=== PATIENT | male | born 1955 | race Caucasian/White ===

== ENCOUNTER 2019-06-15 09:24 | Emergency (ER) | payer MEDICARE, SELFPAY ==
[2019-06-15 09:34] VITALS: BP 181/82; PULSE 83; RESP 18; TEMP 36.8; O2SAT 93; BMI 34.2
--- NOTE | 2019-06-15 09:43 | ED_ITS ---
HPI - Skin/Abscess/Foreign Bdy General: Chief complaint: Skin/Abscess/Foreign Body Stated complaint: LEFT LEG INFECTION Time Seen by Provider: 06/15/19 09:28 History of Present Illness: HPI narrative: Patient has an abscess to the posterior aspect of his left proximal thigh/distal buttocks complaint: abscess/boil Onset (ago): day(s) Tetanus up to date: yes Location: LLE Severity: moderate Severity scale (1-10): 5 Quality: sharp and constant Pain Consistency: constant Relieving factors: none Exacerbating factors: movement Review of Systems General: Reports: 10 or more systems reviewed and unremarkable except in HPI and below PFSH ED PFSH: Social History Smoking and tobacco status: current every day smoker Physical Exam Skin: LESIONS: lesion noted (4 cm diameter developing abscess with fluctuant center) Procedures Abscess I/D Site: lower extremity Side (if applicable): left Local Anesthetic: lidocaine 1% and with epi Technique: incised with #11 blade Amount of fluid expressed (mL): 15 Irrigation: No Packing used?: none Course Vital Signs: Vital signs: Vital Signs Temperature 98.3 F 06/15/19 09:34 Pulse Rate 83 06/15/19 09:34 Respiratory Rate 18 06/15/19 09:34 Blood Pressure 181/82 06/15/19 09:34 Pulse Oximetry 93 06/15/19 09:34 Discharge Plan Discharge Patient Disposition: Home, Self-Care Clinical Impression: Abscess of skin or subcutaneous tissue Qualifiers: Site of cutaneous abscess: buttock Qualified Code(s): L02.31 - Cutaneous abscess of buttock Condition: Stable Prescriptions: New clindamycin HCl 300 mg capsule 300 mg PO Q6H 10 Days Qty: 40 RF: 0 hydrocodone-acetaminophen 5-325 mg tablet 1 tab PO Q4H PRN (Reason: pain) Qty: 10 RF: 0 Discharge Orders: Discharge Order (Routine); Ordered 06/15/19 Ordered By: Tera Lundberg Referrals: Sierra Connelly DO [Primary Care Provider] - Patient Instructions: Abscess Incision and Drainage (ED), Abscess (ED) Coding Level of Care Code ED Manufacturing Mechanic for Chg Fwd Exam Problem Focused
[2019-06-15] MEDS: ceFAZolin 1,000 mg SDV 1000 MG IM (09:54)
[2019-06-15] MEDS: water for injection-sterile 10 ML 2 ML (09:57)
[2019-06-15 10:15] VITALS: BP 180/71; PULSE 76; RESP 18; TEMP 36.9; O2SAT 95
== END 2019-06-15 10:10 | disposition home or self-care (01) ==
PROVIDERS: Emergency Provider Family Medicine; Family Provider Family Medicine; PCP Family Medicine
DX: L02.31 Cutaneous abscess of buttock (principal); F17.210 Nicotine dependence, cigarettes, uncomplicated
CPT/HCPCS: 10060; 12345; 87070; 87205; 96372; 99281; 99283; J0690; J2001

== ENCOUNTER 2019-12-02 12:00 | Outpatient (CLI) | payer MEDICARE, SELFPAY | END 2019-12-02 12:01 | disposition home or self-care (01) | LOC: SLEEP 04-01 08:42 | PROVIDERS: Family Provider Family Medicine; PCP Family Medicine; Visit Provider Internal Medicine Pulmonary Disease | DX: G47.33 Obstructive sleep apnea (adult) (pediatric) (principal); J44.9 Chronic obstructive pulmonary disease, unspecified | CPT/HCPCS: 94762; G0399 ==

== ENCOUNTER 2019-12-08 16:35 | Outpatient (CLI) | payer MEDICARE, SELFPAY ==
[2019-12-08 17:09] LABS: Basophils # 0.1 10^3/uL (0.0-0.1); Basophils % 0.7 %; Eosinophils # 0.1 10^3/uL (0.0-0.8); Hematocrit 49.3 % (42.0-52.0); Hemoglobin 16.5 g/dL (11.7-16.6); Lymphocytes # 1.6 10^3/uL (0.8-4.8); Lymphocytes % 22.4 %; Mean Corpuscular HGB Conc 33.5 g/dL (30.0-36.0); Mean Corpuscular Hemoglobin 32.7 pg (28.0-34.0); Mean Corpuscular Volume 97.6 fL (80-94); Mean Platelet Volume 10.5 fL (7.4-10.4); Monocytes # 0.4 10^3/uL (0.2-0.9); Monocytes % 5.8 %; Neutrophils # 4.75 10^3/uL (1.8-7.7); Neutrophils % 68.8 %; Nucleated Red Blood Cells % 0 %; Platelet Count 238 10^3/cmm (130-400); Red Blood Count 5.05 10^6/uL (4.1-5.3); Red Cell Distribution Width 14.5 % (12.1-15.1); White Blood Count 6.9 10^3/uL (4.0-10.0)
[2019-12-08 17:24] LABS: Alanine Aminotransferase 41 U/L (0-41); Albumin Level 3.7 g/dL (3.5-5.2); Alkaline Phosphatase 82 IU/L (40-130); Anion Gap 15.9 (5-19); Aspartate Amino Transferase 38 U/L (0-40); Blood Urea Nitrogen 13 mg/dL (8-23); Calcium 9.5 mg/dL (8.5-10.5); Carbon Dioxide 25 mmol/L (22-29); Chloride 100 mmol/L (98-107); Globulin 3.5 g/dL (1.3-4.6); Glomerular Filtration Rate 75.2 mL/min (90-130); Glucose 114 mg/dL (65-115); Osmolality Calculated 285 mOsm/kg (285-295); Potassium 3.9 mmol/L (3.5-5.1); Sodium 137 mmol/L (136-145); Total Bilirubin 0.3 mg/dL (0.15-1.2); Total Protein 7.2 g/dL (6.6-8.7)
[2019-12-10 18:32] LABS: Immunoglobulin E 126 kU/L (<OR=114)
[2019-12-11 15:57] LABS: Alternaria Alternata (M6) Ige <0.10 kU/L; Alternaria Class 0; Bermuda Class 0; Bermuda Grass (G2) Ige <0.10 kU/L; Cat Dander (E1) Ige <0.10 kU/L; Cat Dander Class 0; Common Ragweed (Short) (W1) Ig <0.10 kU/L; D. Farinae Class 0; Dermatophagoides Class 0; Dermatophagoides Farinae (D2) <0.10 kU/L; Dermatophagoides Pteronyssinus <0.10 kU/L; Dog Dander (E5) Ige <0.10 kU/L; Dog Dander Class 0; Elm (T8) Ige <0.10 kU/L; Elm Class 0; English Plantain (W9) Ige <0.10 kU/L; English Plantain Class 0; House Dust (Greer) (H1) Ige <0.10 kU/L; House Dust (Hollister- Stier) <0.10 kU/L; House Dust Class 0; Johnson Grass (G10) Ige 0.71 kU/L; Johnson Grass Cl 2; June Grass Class 0; June Grass(Kentucky Blue) (G8) <0.10 kU/L; Lamb'S Quarters (Goose Foot) <0.10 kU/L; Lamb'S Quarters Class 0; Maple (Box Elder) (T1) Ige <0.10 kU/L; Maple Class 0; Meadow Fescue (G4) Ige <0.10 kU/L; Meadow Fescue Class 0; Mucor Racemosus Class 0; Oak (T7) Ige <0.10 kU/L; Oak Class 0; Orchard Grass (Cocksfoot) (G3) <0.10 kU/L; Penicillium Class 0; Penicillium Notatum (M1) Ige <0.10 kU/L; Perennial Rye Grass (G5) Ige <0.10 kU/L; Perennial Rye Grass Class 0; Ragweeed Class 0; Rough Marsh Elder (W16) Ige <0.10 kU/L; Rough Marsh Elder Class 0; Sweet Vernal Class 0; Sweet Vernal Grass (G1) Ige <0.10 kU/L; Timothy Grass (G6) Ige <0.10 kU/L; Timothy Grass Class 0
[2019-12-11 17:03] LABS: Immunoglobulin E 156 kU/L (<OR=114)
[2019-12-15 17:08] LABS: Aspergillus Fumigatus, Igg Ab, 27.6 mg/L (<=102)
== END 2019-12-08 16:36 | disposition home or self-care (01) ==
LOC: LAB 16:43
PROVIDERS: PCP Family Medicine; Visit Provider Internal Medicine Pulmonary Disease
DX: R06.02 Shortness of breath (principal); F17.200 Nicotine dependence, unspecified, uncomplicated; J44.9 Chronic obstructive pulmonary disease, unspecified; Z12.2 Encounter for screening for malignant neoplasm of respiratory organs
CPT/HCPCS: 36415; 80053; 82785; 85025; 86003

== ENCOUNTER → 2019-12-09 16:58 | Outpatient (BNVA) | payer MEDICARE, SELFPAY | PROVIDERS: PCP Family Medicine; Visit Provider Internal Medicine Pulmonary Disease | DX: Z11.59 Encounter for screening for other viral diseases (principal) | CPT/HCPCS: 87635 ==

== ENCOUNTER 2019-12-11 12:51 | Outpatient (CLI) | payer MEDICARE, SELFPAY ==
--- NOTE | 2019-12-11 14:08 | PFTS_ITS ---
Date of Study:12/11/19 Date of Dictation: MECHANICS: Forced vital capacity (FVC) is reduced. Forced expiratory volume in one second (FEV1) is reduced. FEV1/FVC is normal. FLOW VOLUME LOOP: Narrow with mild scooping. LUNG VOLUMES: Total lung capacity (TLC) is increased. Residual volume (RV) is increased. DIFFUSING CAPACITY FOR CARBON MONOXIDE: Mildly reduced. INTERPRETATION: The pulmonary function tests are consistent with nonspecific ventilatory limitation. The postbronchodilator spirometry is consistent with mild restriction, however, this is not supported by the lung volumes. This is likely secondary to a combination of obstructive and restrictive defect. There is no significant postbronchodilator response. Lung volumes are consistent with hyperinflation and air trapping. Gas exchange (DLCO) is mildly reduced. MTDD
== END 2019-12-11 12:52 | disposition home or self-care (01) ==
LOC: RT 12:53
PROVIDERS: PCP Family Medicine; Visit Provider Internal Medicine Pulmonary Disease
DX: J44.9 Chronic obstructive pulmonary disease, unspecified (principal)
CPT/HCPCS: 94060; 94726; 94729; J7611

== ENCOUNTER 2020-05-28 15:12 | Outpatient (CLI) | payer MEDICARE, SELFPAY ==
--- NOTE | 2020-05-28 15:30 | CT_ITS ---
WS: [id number] CT scan of the chest without IV contrast, additional two-dimensional coronal and sagittal reconstruct ion was performed. 05/28/2020 Clinical Data: follow up to lung nodule Comparison: CT chest, 01/16/2020. DLP: 1056.[address] scans at [facility] use at least one of these dose optimization techniques: automat ed exposure control; mA and/or kV adjustment per patient size (includes targeted exams where dose is matched to clinical indication); or iterative reconstruction. Findings: No nodules, masses or effusions are seen. The pleura in the left lower lobe shows no increased opacit y or thickening. The heart size is normal with no pericardial effusion. There is calcification in the coronary arteries. The pulmonary arterial system and thoracic aorta demonstrate no abnormalities or dilatations. There is no axillary or significant mediastinal adenopathy. Degenerative change of the t horacic vertebral bodies is moderate. The upper abdomen shows no abnormalities. CT/CT chest wo con [id number] Impression: 1. No evidence of any significant nodules. 2. No parenchymal disease in left lower lobe. 3. Negative for active cardiopulmonary disease.
== END 2020-05-28 15:13 | disposition home or self-care (01) ==
LOC: RADWPI 15:18
PROVIDERS: PCP Family Medicine; Visit Provider Internal Medicine Pulmonary Disease
DX: R91.1 Solitary pulmonary nodule (principal)
CPT/HCPCS: 71250

== ENCOUNTER → 2021-01-08 16:29 | Outpatient (BNVA) | payer OTHER, SELFPAY | PROVIDERS: PCP Family Medicine; Visit Provider Registered Nurse Neonatal Intensive Care | DX: Z20.822 Contact with and (suspected) exposure to COVID-19 (principal) | CPT/HCPCS: 87635 ==

== ENCOUNTER → 2024-02-13 14:51 | Outpatient (BNVA) | payer MEDICARE, SELFPAY | PROVIDERS: PCP Family Medicine; Referring Provider Nurse Practitioner Family; Visit Provider Internal Medicine | DX: R07.9 Chest pain, unspecified (principal); I77.9 Disorder of arteries and arterioles, unspecified; I73.9 Peripheral vascular disease, unspecified; F17.200 Nicotine dependence, unspecified, uncomplicated; J44.9 Chronic obstructive pulmonary disease, unspecified; I10 Essential (primary) hypertension | CPT/HCPCS: 93005; 99204 ==

== ENCOUNTER 2024-11-14 20:27 | Emergency (ER) | payer MEDICARE, SELFPAY ==
--- NOTE | 2024-11-14 20:31 | ECG_ITS ---
[facility] Test Date: 2024-11-14 Pat Name: James Alvarado Department: Room: Gender: Male Interior Design Assistant: : 1955 Requested By: Gwyn Patton Order Number: [id number] Tian MD: Kit Pickard M.D. Measurements Intervals [place] Rate: 68 P: 45 OK: 187 QRS: -7 QRSD: 89 T: 33 QT: 412 QTc: 441 Interpretive Statements SINUS RHYTHM Compared to ECG 02/13/2024 15:01:32 No significant changes Electronically Signed On 11-15-2024 13:03:59 CDT by Kit Pickard M.D. [id number]
--- OUTSIDE RECORDS SUMMARY | 2024-11-14 20:32 | XMS_ITS | Encounter Summary ---
Author Organization [facility] Address [address] [place] [address] Care Team Providers Care Hospital Pharmacist Name Role Phone Sierra Connelly DO Primary Care Provider Encounter Details Date Type Department Care Team (Late st Contact Info) Description 06/22/2011 Ancillary Orders [facility] [place] [address] [place] [address] Sierra Connelly DO [address] [place] [address] Low back pain radiating to left leg Social History Tobacco Use Types Packs/Day Years Used Date Smoking Tobacco: Every Day Cigarettes 0.3 44 Comments:quit 11 weeks ago Alcohol Use Standard Drinks/Week Comments No 0 (1 standard drink = 0.6 oz pur e alcohol) 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 Sex and Gender Information Value Date Recorded Sex Assigned at Not on file Legal Sex Male 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 No significant change is seen since the comparison study of 18 April 2010. There is osteophyte formation as before. IMPRESSION osteoarthritis with no acute changes seen Procedure Note Abhishek Mcdowell MD - 06/23/2011 Description: AP, lateral, and swimmer projection of the thoracic spine show no acute compression fracture or loss of alignment. No significant change is seen since the comparison study of 18 April 2010. There is osteophyte formation as before. IMPRESSION osteoarthritis with no acute changes seen us Sierra Connelly DO DIAGNOSTIC IMAGING ORDERABL ES Final Result documented in this encounter Visit Diagnoses Diagnosis Low back pain radiating to left leg Lumbago Low back pain radiating to left leg Lumbago documented in this encounter Additional Health Concerns Infection Onset Date Last Indicated Resolved Time R/O COVID-19 09/09/2019 09/09/2019 09/11/2019 3:34 AM CDT documented as of this encounter Care Teams Hospital Pharmacist Relationship Specialty Start Date End Date Sierra Connelly DO [address] [place] [address] PCP - General Family Practice 10/18/09 documented as of this encounter
--- OUTSIDE RECORDS SUMMARY | 2024-11-14 20:32 | XMS_ITS | Encounter Summary ---
Author Organization [facility] Address [address] [place] [address] Care Team Providers Care Wholesale Account Executive Name Role Phone Sierra Connelly DO Primary Care Provider [phone] Encounter Details Date Type Department Care Team (Late st Contact Info) Description 10/05/2024 Results Follow-Up [facility] Family Medicine [place] [address] [place] [address] Sierra Connelly DO [address] [place] [address] VITAMIN B12 LEVEL Social History Tobacco Use Types Packs/Day Years Used Date Smoking Tobacco: Former Cigarettes 1 60.3 0 1963 - 2024 Passive Smoke Exposure: Current Smokeless Tobacco: Never Alcohol Use Standard Drinks/Week Comments No 0 (1 standard drink = 0.6 oz pur e alcohol) Financial Resource Strain Answer Date R ecorded How hard is it for you to pa y for the very basics like food, housing, medical care, and heating? Patient declined 10/02/2022 Food Insecurity Answer Date Recorded In the past 12 months, have you worried that your food would run out before you had money to buy more? Patient declined 2022 In the past 12 months, did y ou run out of food and didn't have money to buy more? Patient declined 10/02/2022 Transportation Needs Answer Date Record ed In the past 12 months, has l ack of transportation kept you from medical appointments or from getting medications? No 10/02/2022 Lack of Transportation (Non-Medical) Not on file 10/02/2022 Feeling Safe Answer Date Recorded Are you in a relationship wi th someone who hurts you emotionally and/or physically? No 04/24/2024 Sex and Gender Information Value Date Recorded Sex Assigned at Not on file Legal Sex Male 10:16 AM EXTENSION SERVICE ADVISOR Gender Identity Not on file Sexual Orientation Not on file documented as of this encounter Plan of Treatment Upcoming Encounters Date Type Department Care Team (Late st Contact Info) Description 11/27/2024 3:20 PM CDT Office Visit [facility] [address] [facility] [facility] [address] [place] [address] Dominga Saenz, MERCERIZER [address] [facility] [place] [address] 12/15/2024 3:00 PM CDT Appointment [facility] CT Scan [place] [address] [place] [address] Heather Guerrero PA-C [address] [address] 12/16/2024 1:20 PM CDT Office Visit [facility] [address] [place] [address] Arian Weston, SECURITY SYSTEMS TECHNICIAN [address] [place] [address] 12/22/2024 3:00 PM CDT Appointment [facility] Radiation Oncology [facility] [address] [facility] [address] [place] [address] Heather Guerrero PA-C [address] [address] 01/13/2025 2:30 PM EXTENSION SERVICE ADVISOR Office Visit [facility] Pulmonology [address] [place] [address] Zahraa Kelly MD [address] [place] [address] 03/31/2025 1:30 PM EXTENSION SERVICE ADVISOR Ancillary Procedure [facility] Lab [facility]- [place] [address] [place] [address] Lee Mejia MD [address] [place] [address] 03/31/2025 2:30 PM EXTENSION SERVICE ADVISOR Office Visit [facility] Vascular Surgery [place] [address] [facility] [address] [place] [address] Lee Mejia MD [address] [place] [address] Kaylee Arias FNP NO ADDRESS ON FILE 04/07/2025 11:00 AM EXTENSION SERVICE ADVISOR Office Visit [facility] [address] [place] [address] Sierra Connelly, DO [address] [place] [address] 07/07/2025 11:00 AM CDT Office Visit [facility] [address] [place] [address] Sierra Connelly, DO [address] [place] [address] documented as of this encounter Visit Diagnoses Not on filedocumented in this encounter Care Teams Wholesale Account Executive Relationship Specialty Start Date End Date Sierra Connelly DO [address] [place] [address] PCP - General Family Practice 10/18/09 documented as of this encounter
--- OUTSIDE RECORDS SUMMARY | 2024-11-14 20:32 | XMS_ITS | Encounter Summary ---
Author Organization [facility] Address [address] [place] [address] Care Team Providers Care Media Analytics Manager Name Role Phone Rebecca Connellyoraian Rm DO Primary Care Provider [phone] Reason for Referral * Outpatient Services (Routine) - Closed Specialty Diagnoses / Procedures Referred By Mayra lopez Referred To Contact Diagnoses PAD (peripheral artery disease) Procedures US DUPLEX ARTERIAL LEG RIGHT Celestina Stringer CNS NO ADDRESS ON FILE Referral ID Status Reason Start Date Expiration Date Visits Re quested Visits Authorized [id number] Closed 10/05/2010 10/05/2011 1 1 Encounter Details Date Type Department Care Team (Late st Contact Info) Description 10/05/2010 Ancillary Orders [facility] Cardiac Thoracic Vascular Surg [place] [address] [place] [address] Celestina Stringer CNS NO ADDRESS ON FILE PAD (peripheral artery disease) Social History Tobacco Use Types Packs/Day Years Used Date Smoking Tobacco: Former Cigarettes 1 44 Comments:quit 11 weeks ago Alcohol Use Standard Drinks/Week Comments No 0 (1 standard drink = 0.6 oz pur e alcohol) 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 Sex and Gender Information Value Date Recorded Sex Assigned at Not on file 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 Gender Identity Not on file Sexual Orientation Not on file documented as of this encounter Plan of Treatment Not on file documented as of this encounter Results * US DUPLEX ARTERIAL LEG RIGHT (10/05/2010 2:27 PM CDT) Anatomical Region Laterality Modality Lower Extremity Ultrasound 10/05/2010 1:52 PM CDT Narrative 10/05/2010 3:24 PM CDT [facility] [address] [place] [address] [place] [address] Noninvasive Vascular Lab Arterial Exam Limited Lower Extremity Duplex Patient: James Alvarado Study ID: US DOPPLER ARTER Gender: M : 1955 Age: 54 Room: Height: Weight: BSA: Pt status: Outpatient Study Date: 10/05/2010 Study Time: 01:52 PM BSA: Ordering: Celestina Stringer Interpreting:Vijay Sewell MD FACS, RPVI Study Abroad Advisor: Isaac Lim RVT Indications: 443.9 Peripheral vascular disease unspecified. Summary Impression: 1. Study demonstrates severe, femoro-popliteal arterial insufficiency at rest involving the right lower extremity 2. Findings represent a severe progression of disease from the prior examination done 04/08/2010. Clinical correlation is reccomended. Study data: Right lower extremity arterial duplex. Duplex scan. Location: Vascular laboratory. Patient status: Outpatient. Study status: Routine. Procedure: A vascular evaluation was performed. Image quality was good. Exam quality was good. Findings: In the right lower extremity inflow is biphasic. The superficial femoral artery is occluded. There is an occluded femoral to popliteal bypass. There is biphasic flow into the profunda femoral artery. Recanalization is seen in the popliteal, which is diffusely diseased. Velocity criteria suggest at least a 50-75% narrowing in the popliteal artery. Waveforms in the popliteal are monophasic, they are monophasic and blunted in the tibial vessels. Velocities in the tibial vessels are severely reduced. Resting MELLISA is in the severe disease range. PPGs are present and severely diminished for all digits in the right lower extremity. Ankle brachial indices Baseline Rt PT: 57mm Hg Rt DP: 52mm Hg Rt brachial: 114mm Hg Rt PT: 0.5 Rt DP: 0.46 Lt PT: 92mm Hg Lt DP: 84mm Hg Lt Brachial: 113mm Hg Lt PT: 0.81 Lt DP: 0.74 [facility] is accredited with the Intersocietal Commission for the Accreditation of Vascular Laboratories (ICAVL) Prepared and Electronically Authenticated Silverio Gomez MD, MBA, FACS Confirmed 10/05/2010 15:24 Procedure Note Silverio Briseno MD - 10/05/2010 [facility] [address] [place] [address] [place] [address] Noninvasive Vascular Lab Arterial Exam Limited Lower Extremity Duplex Patient: James Alvarado Study ID: US DOPPLER ARTER Gender: M : 1955 Age: 54 Room: Height: Weight: BSA: Pt status: Outpatient Study Date: 10/05/2010 Study Time: 01:52 PM BSA: Ordering: Celestina Stringer Interpreting:Vijay Sewell MD FACS, RPVI Study Abroad Advisor: Isaac Lim RVT Indications: 443.9 Peripheral vascular disease unspecified. Summary Impression: 1. Study demonstrates severe, femoro-popliteal arterial insufficiency at rest involving the right lower extremity 2. Findings represent a severe progression of disease from the prior examination done 04/08/2010. Clinical correlation is reccomended. Study data: Right lower extremity arterial duplex. Duplex scan.Location: Vascular laboratory. Patient status: Outpatient. Study status: Routine. Procedure: A vascular evaluation was performed. Image quality was good. Exam quality was good. Findings: In the right lower extremity inflow is biphasic. The superficial femoral artery is occluded. There is an occluded femoral to popliteal bypass.There is biphasic flow into the profunda femoral artery. Recanalization isseen in the popliteal, which is diffusely diseased. Velocity criteria suggestat least a 50-75% narrowing in the popliteal artery. Waveforms in the popliteal are monophasic, they are monophasic and blunted in the tibial vessels. Velocities in the tibial vessels are severely reduced. RestingABI is in the severe disease range. PPGs are present and severely diminished for all digits in the right lower extremity. Ankle brachial indices Baseline Rt PT: 57mm Hg Rt DP: 52mm Hg Rtbrachial: 114mm Hg Rt PT: 0.5 Rt DP: 0.46 Lt PT: 92mm Hg Lt DP: 84mm Hg LtBrachial: 113mm Hg Lt PT: 0.81 Lt DP: 0.74 [facility] is accredited with theIntersocietal Commission for the Accreditation of Vascular Laboratories (ICAVL) Prepared and Electronically Authenticated Silverio Gomez MD, MBA FACS Confirmed 10/05/2010 15:24 us Celestina Brock [place] [facility] US ORDERABLES Final Result documented in this encounter Visit Diagnoses Diagnosis PAD (peripheral artery disease) Unspecified disorders of arteries and arterioles documented in this encounter Additional Health Concerns Infection Onset Date Last Indicated Resolved Time R/O COVID-19 09/09/2019 09/09/2019 09/11/2019 3:34 AM CDT documented as of this encounter Care Teams Media Analytics Manager Relationship Specialty Start Date End Date Sierra Connelly DO [address] [place] [address] PCP - General Family Practice 10/18/09 documented as of this encounter
--- OUTSIDE RECORDS SUMMARY | 2024-11-14 20:32 | XMS_ITS | Encounter Summary ---
Author Organization [facility] Address 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 Topic: [id number] Call >> Sep 11, 2024 10:58 AM Magalys Gutiérrez wrote: Caller is requesting to speak with Clinical Care Team. Caller Name: Flyr Callback Number: [phone] Clinician Type: Other healthcare professional not listed above Call Notes: Patient shows to have a diagnosis of cardiovascular disease, asking provider to review the patient's chart and place him on a statin medication if appropriate. Ref #[id number] Is this addressing an immediate patient care need? No documented in this encounter Plan of Treatment Upcoming Encounters Date Type Department Care Team (Late st Contact Info) Description 11/27/2024 3:20 PM CDT Office Visit [facility] [address] [facility] [address] [place] [address] Dominga Saenz, CUSTOMER SUPPORT AGENT [address] [facility] [address] [place] [address] 12/15/2024 3:00 PM CDT Appointment [facility] CT Scan [place] [address] [place] [address] Heather Guerrero PA-C [address] [facility] [address] [place] [address] 12/16/2024 1:20 PM CDT Office Visit [facility] Family Medicine [place] [address] [place] [address] Arian Weston, ARIS [address] [place] [address] 12/22/2024 3:00 PM CDT Appointment [facility] Radiation Oncology [facility] Center [address] [facility] [address] [place] [address] Heather Guerrero PA-C [address] [facility] [address] [place] [address] 01/13/2025 2:30 PM WEEKEND CAREGIVER Office Visit [facility] Pulmonology [address] [place] [address] Zahraa Kelly MD [address] [place] [address] 03/31/2025 1:30 PM WEEKEND CAREGIVER Ancillary Procedure [facility] Vascular Lab and Vein Center- [address] [address] Lee Mejia MD [address] [address] 03/31/2025 2:30 PM WEEKEND CAREGIVER Office Visit [facility] Vascular Surgery [address] [address] Lee Mejia MD [address] [place] [address] Kaylee Arias FNP NO ADDRESS ON FILE 04/07/2025 11:00 AM WEEKEND CAREGIVER Office Visit [facility] [address] [place] [address] Sierra Connelly, DO [address] [place] [address] 07/07/2025 11:00 AM CDT Office Visit [facility] [address] [facility] [place] [address] Sierra Connelly, DO [address] [place] [address] documented as of this encounter Visit Diagnoses Not on filedocumented in this encounter Care Teams Aircraft Worker Relationship Specialty Start Date End Date Sierra Connelly DO [address] [place] [address] PCP - General Family Practice 10/18/09 documented as of this encounter
--- OUTSIDE RECORDS SUMMARY | 2024-11-14 20:32 | XMS_ITS | Encounter Summary ---
Author Organization [facility] Address [address] [place] [address] Care Team Providers Care Field Staff Manager Name Role Phone Sierra Connelly Jag LORENZO Primary Care Provider [phone] Encounter Details Date Type Department Care Team (Latest Contact Info) Description 03/14/2024 Results Follow-Up 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 CT Scan [place] [address] [place] [address] Heather Guerrero PA-C [address] [facility] [address] [place] [address] 12/16/2024 1:20 PM CDT Office Visit [facility] Family Medicine [place] [address] [place] [address] Arian Weston, DYE HOUSE HELPER [address] [place] [address] 12/22/2024 3:00 PM CDT Appointment [facility] Radiation [facility] [address] [facility] [address] [place] [address] Heather Guerrero PA-C [address] [facility] [address] [place] [address] 01/13/2025 2:30 PM STRIPPER CUTTER MACHINE Office Visit [facility] Pulmonology [address] [place] [address] Zahraa Kelly MD [address] [place] [address] 03/31/2025 1:30 PM STRIPPER CUTTER MACHINE Ancillary Procedure [facility] [place] [address] [facility] [address] [place] [address] Lee Mejia MD [address] [facility] [address] [place] [address] 03/31/2025 2:30 PM STRIPPER CUTTER MACHINE Office Visit [facility] Vascular Surgery [place] [address] [facility] [address] [place] [address] Lee Mejia MD [address] [facility] [address] [place] [address] Kaylee Arias FNP NO ADDRESS ON FILE 04/07/2025 11:00 AM STRIPPER CUTTER MACHINE Office Visit [facility] [address] [place] [address] Sierra Connelly, DO [address] [place] [address] 07/07/2025 11:00 AM CDT Office Visit [facility] [address] [place] [address] Sierra Connelly, DO [address] [place] [address] documented as of this encounter Visit Diagnoses Not on filedocumented in this encounter Care Teams Field Staff Manager Relationship Specialty Start Date End Date Sierra Connelly DO [address] [place] [address] PCP - General Family Practice 10/18/09 documented as of this encounter
--- OUTSIDE RECORDS SUMMARY | 2024-11-14 20:32 | XMS_ITS | Encounter Summary ---
Author Organization [facility] Address [address] [place] [address] Care Team Providers Care Flatlock Sewing Machine Operator Name Role Phone Sierra Connelly DO Primary Care Provider [phone]- [phone] Reason for Referral * MRI (Routine) - Open Specialty Diagnoses / Procedures Referred By Contac t Referred To Contact Radiology Diagnoses Infrarenal abdominal aortic aneurysm (AAA) without rupture Pancreatic lesion Procedures MRI ABDOMEN PELVIS W WO CONT CHG MRI ABDOMEN W/O CONTRAST FLWD BY W/CONTRAST CHG MRI PELVIS W/O & W/CONTRAST MATERIAL Arian Weston FNP [address] [place] [address] Phone: tel: fax: [facility] [employer] [facility] [place] [address] [place] [address] Phone: tel: fax: Referral ID Status Reason Start Date Expiration Date Visits Re quested Visits Authorized [id number] Open 10/31/2024 12/01/2025 1 1 Encounter Details Date Type Department Care Team (Latest Contact Info) Description 10/20/2024 Results Follow-Up [facility] Medicine [place] [address] [place] [address] Arian Weston FNP [address] [place] [address] CBC WITH DIFFERENTIAL, COMPREHENSIVE METABOLIC PANEL, LIPASE, Additional followed-up results: 4 Social History Tobacco Use Types Packs/Day Years [...] on file 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 Gender Identity Not on file Sexual Orientation Not on file documented as of this encounter Plan of Treatment Upcoming Encounters Date Type Department Care Team (Late st Contact Info) Description 11/27/2024 3:20 PM CDT Office Visit [facility] Cardiology Heart [facility] [address] [facility] [address] [place] [address] Dominga Saenz, TYLER [address] [place] [address] 12/15/2024 3:00 PM CDT Appointment [facility] CT Scan [place] [address] [place] [address] Heather Guerrero PA-C [address] [facility] [address] [place] [address] 12/16/2024 1:20 PM CDT Office Visit [facility] [address] [place] [address] WestonArian Ravindra, [facility] [address] [facility] [address] 12/22/2024 3:00 PM CDT Appointment [facility] Radiation Oncology [facility] [address] [facility] [address] [place] [address] Heather Guerrero PA-C [address] [facility] [address] [place] [address] 01/13/2025 2:30 PM TOOLS AND PARTS ATTENDANT Office Visit [facility] Pulmonology [address] [place] [address] [place] [address] Zahraa Kelly MD [address] [place] [address] 03/31/2025 1:30 PM TOOLS AND PARTS ATTENDANT Ancillary Procedure [facility] V[facility] Lab [facility] [place] [address] [place] [address] Lee Mejia MD [address] [facility] [address] [place] [address] 03/31/2025 2:30 PM TOOLS AND PARTS ATTENDANT Office Visit [facility] Vascular Surgery [place] [address] [facility] [address] [place] [address] Lee Mejia MD [address] [phone] Kaylee Arias FNP NO ADDRESS ON FILE 04/07/2025 11:00 AM TOOLS AND PARTS ATTENDANT Office Visit [facility] [address] [place] [address] Sierra Connelly, DO [address] [place] [address] 07/07/2025 11:00 AM CDT Office Visit [facility] [address] [place] [address] Sierra Connelly, DO [address] [place] [address] Scheduled Orders Name Type Priority Associated Diagnoses Orde r Schedule MRI ABDOMEN PELVIS W WO CONT Imaging Routine Infrarenal abdominal aortic aneurysm (AAA) without rupture Pancreatic lesion Expected: 10/30/2025, Expires: 04/30/2026 documented as of this encounter Visit Diagnoses Diagnosis Infrarenal abdominal aortic aneurysm (AAA) without rupture- Primary Pancreatic lesion Unspecified disease of pancreas documented in this encounter Care Teams Flatlock Sewing Machine Operator Relationship Specialty Start Date End Date Sierra Connelly DO [address] [place] [address] PCP - General Family Practice 10/18/09 documented as of this encounter
--- OUTSIDE RECORDS SUMMARY | 2024-11-14 20:32 | XMS_ITS | Encounter Summary ---
Author Organization [facility] Address [address] [place] [address] Care Team Providers Care Parts Salesman Name Role Phone Sierra Connelly DO Primary Care Provider [phone] Reason for Referral * Radiology Services (Routine) - Closed Specialty Diagnoses / Procedures Referred By Contbeltran t Referred To Contact Diagnoses Cervical radiculitis Procedures XR FLUORO NEEDLE GUIDANCE SPINE Zoya De Santiago DO [address] [place] [address] Phone: tel: fax: Referral ID Status Reason Start Date Expiration Date Visits Re quested Visits Authorized [id number] Closed 01/22/2018 02/22/2019 1 1 ANICAL MAINTENANCE Encounter Details Date Type Department Care Team (Late st Contact Info) Description 01/22/2018 Ancillary Orders [facility] Pain Management Procedures [place] [address] [place] [address] Zoay De Santiago DO [address] [place] [address] [address] Cervical radiculitis Social History Tobacco Use Types Packs/Day Years Used Date Smoking Tobacco: Every Day Cigarettes 0.3 44 Smokeless Tobacco: Never Alcohol Use Standard Drinks/Week Comments No 0 (1 standard drink = 0.6 oz pure alcohol) He is a Alcoholic, clean and sober since 2000 Sex and Gender Information Value Date Recorded Sex Assigned at Not on file Legal Sex Male 6:17 AM MECHANICAL MAINTENANCE Gender Identity Not on file Sexual Orientation Not on file Occupation Industry Job Start Date Job End Date Not on file Not on file Not on file Not on file documented as of this encounter Plan of Treatment Not on file documented as of this encounter Results * XR FLUORO NEEDLE GUIDANCE SPINE (01/22/2018 1:40 PM MECHANICAL MAINTENANCE) Narrative 01/22/2018 1:48 PM MECHANICAL MAINTENANCE Order information only. Exam was auto-finalized. Zoya De Santiago DO DIAGNOSTIC IMAGING ORDERABLE S Final Result documented in this encounter Visit Diagnoses Diagnosis Cervical radiculitis Brachial neuritis or radiculitis nos Cervical radiculitis Brachial neuritis or radiculitis nos documented in this encounter Additional Health Concerns Infection Onset Date Last Indicated Resolved Time R/O COVID-19 09/09/2019 09/09/2019 09/11/2019 3:34 AM CDT Assessment Noted Time PHQ-9 Depression Total Score: 1 06/12/19 15 12:00 PM CDT documented as of this encounter Care Teams Parts Salesman Relationship Specialty Start Date End Date Sierra Connelly DO [address] [place] [address] PCP - General Family Practice 10/18/09 documented as of this encounter
--- OUTSIDE RECORDS SUMMARY | 2024-11-14 20:33 | XMS_ITS | Encounter Summary ---
Author Organization [facility] Address [address] [place] [address] Care Team Providers Care Restaurant Shift Supervisor Name Role Phone Sierra Connelly DO Primary Care Provider Encounter Details Date Type Department Care Team (Latest Contact Info) Description 05/26/2009 Ancillary Orders [facility] Interventional Radiology [place] [address] [place] [address] [place] [address] Vijay Sewell MD [address] [address] PVD (Peripheral Vascular Disease) Social History Tobacco Use Types Packs/Day Years Used Date Smoking Tobacco: Every Day Cigarettes 1 44 Alcohol Use Standard Drinks/Week Comments No 0 (1 standard drink = 0.6 oz pur e alcohol) 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 Sex and Gender Information Value Date Recorded Sex Assigned at Not on file 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 Gender Identity Not on file Sexual Orientation Not on file documented as of this encounter Plan of Treatment Not on file documented as of this encounter Visit Diagnoses Diagnosis PVD (peripheral vascular disease) Peripheral vascular disease, unspecified documented in this encounter Additional Health Concerns Infection Onset Date Last Indicated Resolved Time R/O COVID-19 09/09/2019 09/09/2019 09/11/2019 3:34 AM CDT documented as of this encounter Care Teams Restaurant Shift Supervisor Relationship Specialty Start Date End Date Sierra Connelly DO [address] [place] [address] PCP - General Family Practice 10/18/09 documented as of this encounter
--- OUTSIDE RECORDS SUMMARY | 2024-11-14 20:33 | XMS_ITS | Encounter Summary ---
Author Organization [facility] Address [address] [place] [address] Care Team Providers Care Beam Dyer Recessed Vat Name Role Phone Sierra Connelly DO Primary Care Provider Encounter Details Date Type Department Care Team (Latest Contact Info) Description 01/30/2000 Outpatient Historical [facility] Dawson Anne MD [address] [facility] [address] [place] [phone] Follow-up examination following surgery (Primary Dx) Social History Tobacco Use Types Packs/Day Years Used Date Smoking Tobacco: Never Assessed Sex and Gender Information Value Date Recorded Sex Assigned at Not on file Legal Sex Male 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 ATTENDANT Gender Identity Not on file Sexual Orientation Not on file documented as of this encounter Plan of Treatment Not on file documented as of this encounter Visit Diagnoses Diagnosis Follow-up examination following surgery- Primary documented in this encounter Additional Health Concerns Infection Onset Date Last Indicated Resolved Time R/O COVID-19 09/09/2019 09/09/2019 09/11/2019 3:34 AM CDT documented as of this encounter Care Teams Beam Dyer Recessed Vat Relationship Specialty Start Date End Date Sierra Connelly DO [address] [place] [address] PCP - General Family Practice 10/18/09 documented as of this encounter
--- OUTSIDE RECORDS SUMMARY | 2024-11-14 20:33 | XMS_ITS | Encounter Summary ---
Author Organization [facility] Address [address] [place] [address] Care Team Providers Care Whipped Topping Mixer Name Role Phone Sierra Connelly DO Primary Care Provider Encounter Details Date Type Department Care Team (Latest Contact Info) Description 02/25/1998 Outpatient Historical [facility] Gwyn Mckinnon MD [address] [place] [phone] Acute upper respiratory infections of unspecified site (Primary Dx) Social History Tobacco Use Types Packs/Day Years Used Date Smoking Tobacco: Never Assessed Sex and Gender Information Value Date Recorded Sex Assigned at Not on file Legal Sex Male 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 Gender Identity Not on file Sexual Orientation Not on file documented as of this encounter Plan of Treatment Not on file documented as of this encounter Visit Diagnoses Diagnosis Acute upper respiratory infections of unspecified site- Primary documented in this encounter Additional Health Concerns Infection Onset Date Last Indicated Resolved Time R/O COVID-19 09/09/2019 09/09/2019 09/11/2019 3:34 AM CDT documented as of this encounter Care Teams Whipped Topping Mixer Relationship Specialty Start Date End Date Sierra Connelly DO [address] [place] [phone] PCP - General Family Practice 10/18/09 documented as of this encounter
--- OUTSIDE RECORDS SUMMARY | 2024-11-14 20:33 | XMS_ITS | Encounter Summary ---
Author Organization [facility] Address [address] [place] [address] Care Team Providers Care C Software Developer Name Role Phone Sierra Connelly DO Primary Care Provider [phone]- [phone] Reason for Referral * Radiology Services (Routine) - Closed Specialty Diagnoses / Procedures Referred By Contac t Referred To Contact Radiology Diagnoses Essential hypertension Chest pain, unspecified type SOB (shortness of breath) Procedures ECHO STRESS W CONTRAST PHARMACO ECHO STRESS TEST PHARMACO IA ECHO TTHRC R-T 2D W/WO M-MODE REST&STRS CONT ECG IA INJ PERFLUTREN LIP MICROS,ML IA INJ DOBUTAMINE HCL/250 MG IA ECHO TTHRC R-T 2D W/WO M-MODE REST&STRS CONT ECG IA ECHO CONTRAST AGENT DURING STRESS ECHO IA TTE W OR W/O CONTR, CONT ECG Jose Carlos Couch MD Phone: tel: fax: [facility] [address] [place] [address] Phone: tel: fax: Referral ID Status Reason Start Date Expiration Date V isits Requested Visits Authorized [id number] Closed F MC TO SCHEDULE (SGF) 07/04/2018 11/01/2018 1 1 Encounter Details Date Type Department Care Team (Late st Contact Info) Description 07/24/2018 Ancillary Orders [facility] Cardiology- [place] [address] [place] [address] Jose Carlos Couch MD [address] [facility] [address] [place] [address] Essential hypertension; Chest pain, unspecified type; SOB (shortness of breath) Social History Tobacco Use Types Packs/Day Years Used Date Smoking Tobacco: Every Day Cigarettes 1 44 Smokeless Tobacco: Never Alcohol Use Standard Drinks/Week Comments No 0 (1 standard drink = 0.6 oz pure alcohol) He is a Alcoholic, clean and sober since 2000 Sex and Gender Information Value Date Recorded Sex Assigned at Not on file 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 Gender Identity Not on file Sexual Orientation Not on file Occupation Industry Job Start Date Job End Date Not on file Not on file Not on file Not on file documented as of this encounter Plan of Treatment Not on file documented as of this encounter Results * ECHO STRESS W CONTRAST PHARMACO (07/24/2018 1:14 PM CDT) EJECTION FRACTION 55 INTERFACE SYSTEM 07/24/2018 12:3 8 PM CDT Narrative INTERFACE SYSTEM - 07/24/2018 3:39 PM CDT [facility] Echocardiography-[place] [address] [facility] [place] [address] Stress Echocardiography Dobutamine Patient: Christiano Study ECHO STRESS TEST James Hayward ID: Gender: [place] : 1955 Age: 62 Room: Study 07/24/2018 Pt Outpatient Date: Status: Study 12:38:05 PM CSN #: [id number] Time: Ordering:Jose Carlos Couch MD Interpreting:Jose Carlos Couch MD Glassine Machine Tender: Tierra Caldwell [facility] Indications and History: Chronic obstructive pulmonary disease. HTN, CP, SOB. Risk factors: Current tobacco use. Labs, prior tests, procedures, and surgery: Stress nuclear imaging (05/03/2016). EF was 62%. Summary and Conclusion: - Left ventricle: The cavity size was normal. Systolic function was normal. The left ventricular ejection fraction was 55%. The visually estimated ejection fraction was in the range of 55% to 60%. Wall motion was normal; there were no regional wall motion abnormalities. - Stress: Maximal heart rate during stress was 56bpm (35% of maximal predicted heart rate). The maximal predicted heart rate was 158bpm.The target heart rate was not achieved. The heart rate response to stress was blunted. The rate-pressure product for the peak heart rate and blood pressure was 06741za Hg/min. The patient experienced no chest pain during stress. - Stress ECG conclusions: There were no stress arrhythmias or conduction abnormalities. The stress ECG was negative for ischemia at very low stress level but the HR did not increase with dobutamine and the HR was at near baseline throughout the test. - Staged echo: There was no echocardiographic evidence for stress-induced ischemia at very low stress level. The target HR was not achieved. The HR at peak dobutamine was near baseline HR. This test is nondiagnostic and alternative modality of stress testing should be considered. Procedure information: No prior study was available for comparison. Study status: Routine. Consent: The risks, benefits, and alternatives to the procedure were explained to the patient and consent was obtained. Procedure: Contrast study performed to evaluate left ventricular endocardial borders due to suboptimal non-contrast images. Initial setup. A baseline ECG was recorded. Surface ECG leads were monitored. Transthoracic echocardiography. Intravenous contrast (Definity) was administered. There were no complications. There were no contrast reactions. Dobutamine stress test. Stress testing was performed, with dobutamine infusion from 10 to 30 mcg/kg/min by 10 mcg/kg/min increments. Each test stage was approximately 3 min. The infusion was terminated due to hypertension and lack of heart rate augmentation. Patient with history of prostate trouble--unable to use atropine. Transthoracic stress echocardiography. Image quality was adequate. Images were captured at baseline, low dose, mid dose, and peak dose. Study completion: The patient tolerated the procedure well. There were no complications. Dobutamine. Study components: 2D. Height: 177.8cm. Height: 70in. Weight: 106.1kg. Weight: 233.5lb. BMI: 33.6kg/m\S\2. BSA: 2.32m\S\2. Study date: 07/24/2018. Study time: 12:38 PM. Location: Stress laboratory. Cardiac Anatomy: LEFT VENTRICLE: The cavity size was normal. Systolic function was normal. The left ventricular ejection fraction was 55%. The visually estimated ejection fraction was in the range of 55% to 60%. Wall motion was normal; there were no regional wall motion abnormalities. Baseline ECG: Normal sinus rhythm. Stress protocol: - Baseline HR: 50bpm BP: 189/105 (133) - Dobutamine 30 ug/kg/min HR: 56bpm BP: 212/86 (128) Stress results: Maximal heart rate during stress was 56bpm (35% of maximal predicted heart rate). The maximal predicted heart rate was 158bpm.The target heart rate was not achieved. The heart rate response to stress was blunted. There was resting hypertension. The rate-pressure product for the peak heart rate and blood pressure was 52122nu Hg/min. The patient experienced no chest pain during stress. Stress ECG: There were no stress arrhythmias or conduction abnormalities. The stress ECG was negative for ischemia at very low stress level but the HR did not increase with dobutamine and the HR was at near baseline throughout the test. Low dose: LV global systolic function was appropriately augmented from baseline. No evidence for new LV regional wall motion abnormalities. Mid dose: LV global systolic function was appropriately augmented from baseline. No evidence for new LV regional wall motion abnormalities. Peak stress: LV global systolic function was appropriately augmented from baseline. The estimated LV ejection fraction was 65-70%. No evidence for new LV regional wall motion abnormalities. Stress echo results: There was no echocardiographic evidence for stress-induced ischemia at very low stress level. The target HR was not achieved. The HR at peak dobutamine was near baseline HR. This test is nondiagnostic and alternative modality of stress testing should be considered. 2D measurements Left ventricle Major axis ES, A4C 8.1 cm Minor axis ED, A4C 8.1 cm Major axis ED, A2C 9.0 cm Major axis ES, A2C 8.0 cm Vol, ED, 1-p A2C 131 ml Vol, ES, 1-p A2C 82 ml EF, 1-p A2C 62 % Vol ED, 1-p A4C 120 ml Vol ES, 1-p A4C 52 ml EF, 1-p A4C 56 % SV, 1-p A4C 68 ml EDV/bsa, 1-p A4C 52 ml/m\S\2 ESV/bsa, 1-p A4C 22 ml/m\S\2 SV/bsa, 1-p A4C 29 ml/m\S\2 Vol ED, 2-p 128 ml Vol ES, 2-p 51 ml EF, 2-p 60 % SV, 2-p 50 ml Vol/bsa, ED, 2-p 55 ml/m\S\2 Vol/bsa, ES, 2-p 22 ml/m\S\2 SV/bsa, 2-p 21.3 ml/m\S\2 [facility] Echo Labs are accredited with the [facility] Accreditation Commission - Echocardiography. Prepared and Electronically Authenticated Jose Carlos Couch MD Confirmed 07/24/2018 15:39 Procedure Note Jose Carlos Couch MD - 07/24/2018 [facility] Echocardiography-[place] [address] [place] [address] Stress Echocardiography Dobutamine Patient: Christiano Study ECHO STRESS TEST James Hayward ID: Gender: [place] : 1955 Age: 62 Room: Study 07/24/2018 Pt Outpatient Date: Status: Study 12:38:05 PM [facility] #: [id number] Time: Ordering:Jose Carlos Couch MD Interpreting:Jose Carlos Couch MD Glassine Machine Tender: Tierra Caldwell [facility] Indications and History: Chronic obstructive pulmonary disease. HTN, CP, SOB. Risk factors: Current tobacco use. Labs, prior tests, procedures, and surgery: Stress nuclear imaging (05/03/2016). EF was 62%. Summary and Conclusion: - Left ventricle: The cavity size was normal. Systolic function was normal. The left ventricular ejection fraction was 55%. The visually estimated ejection fraction was in the range of 55% to 60%. Wall motion was normal; there were no regional wall motion abnormalities. - Stress: Maximal heart rate during stress was 56bpm (35% of maximal predicted heart rate). The maximal predicted heart rate was 158bpm.The target heart rate was not achieved. The heart rate response to stress was blunted. The rate-pressure product for the peak heart rate and blood pressure was 82602ic Hg/min. The patient experienced no chest pain during stress. - Stress ECG conclusions: There were no stress arrhythmias or conduction abnormalities. The stress ECG was negative for ischemia at very low stress level but the HR did not increase with dobutamine and the HR was at near baseline throughout the test. - Staged echo: There was no echocardiographic evidence for stress-induced ischemia at very low stress level. The target HR was not achieved. The HR at peak dobutamine was near baseline HR. This test is nondiagnostic and alternative modality of stress testing should be considered. Procedure information: No prior study was available for comparison. Study status: Routine. Consent: The risks, benefits, and alternatives to the procedure were explained to the patient and consent was obtained. Procedure: Contrast study performed to evaluate left ventricular endocardial borders due to suboptimal non-contrast images. Initial setup. A baseline ECG was recorded. Surface ECG leads were monitored. Transthoracic echocardiography. Intravenous contrast (Definity) was administered. There were no complications. There were no contrast reactions. Dobutamine stress test. Stress testing was performed, with dobutamine infusion from 10 to 30 mcg/kg/min by 10 mcg/kg/min increments. Each test stage was approximately 3 min. The infusion was terminated due to hypertension and lack of heart rate augmentation. Patient with history of prostate trouble--unable to use atropine. Transthoracic stress echocardiography. Image quality was adequate. Images were captured at baseline, low dose, mid dose, and peak dose. Study completion: The patient tolerated the procedure well. There were no complications. Dobutamine. Study components: 2D. Height: 177.8cm. Height: 70in. Weight: 106.1kg. Weight: 233.5lb. BMI: 33.6kg/m\S\2. BSA: 2.32m\S\2. Study date: 07/24/2018. Study time: 12:38 PM. Location: Stress laboratory. Cardiac Anatomy: LEFT VENTRICLE: The cavity size was normal. Systolic function was normal. The left ventricular ejection fraction was 55%. The visually estimated ejection fraction was in the range of 55% to 60%. Wall motion was normal; there were no regional wall motion abnormalities. Baseline ECG: Normal sinus rhythm. Stress protocol: - Baseline HR: 50bpm BP: 189/105 (133) - Dobutamine 30 ug/kg/min HR: 56bpm BP: 212/86 (128) Stress results: Maximal heart rate during stress was 56bpm (35% of maximal predicted heart rate). The maximal predicted heart rate was 158bpm.The target heart rate was not achieved. The heart rate response to stress was blunted. There was resting hypertension. The rate-pressure product for the peak heart rate and blood pressure was 41519mw Hg/min. The patient experienced no chest pain during stress. Stress ECG: There were no stress arrhythmias or conduction abnormalities. The stress ECG was negative for ischemia at very low stress level but the HR did not increase with dobutamine and the HR was at near baseline throughout the test. Low dose: LV global systolic function was appropriately augmented from baseline. No evidence for new LV regional wall motion abnormalities. Mid dose: LV global systolic function was appropriately augmented from baseline. No evidence for new LV regional wall motion abnormalities. Peak stress: LV global systolic function was appropriately augmented from baseline. The estimated LV ejection fraction was 65-70%. No evidence for new LV regional wall motion abnormalities. Stress echo results: There was no echocardiographic evidence for stress-induced ischemia at very low stress level. The target HR was not achieved. The HR at peak dobutamine was near baseline HR. This test is nondiagnostic and alternative modality of stress testing should be considered. 2D measurements Left ventricle Major axis ES, A4C 8.1 cm Minor axis ED, A4C 8.1 cm Major axis ED, A2C 9.0 cm Major axis ES, A2C 8.0 cm Vol, ED, 1-p A2C 131 ml Vol, ES, 1-p A2C 82 ml EF, 1-p A2C 62 % Vol ED, 1-p A4C 120 ml Vol ES, 1-p A4C 52 ml EF, 1-p A4C 56 % SV, 1-p A4C 68 ml EDV/bsa, 1-p A4C 52 ml/m\S\2 ESV/bsa, 1-p A4C 22 ml/m\S\2 SV/bsa, 1-p A4C 29 ml/m\S\2 Vol ED, 2-p 128 ml Vol ES, 2-p 51 ml EF, 2-p 60 % SV, 2-p 50 ml Vol/bsa, ED, 2-p 55 ml/m\S\2 Vol/bsa, ES, 2-p 22 ml/m\S\2 SV/bsa, 2-p 21.3 ml/m\S\2 [facility] Echo Labs are accredited with the [facility] [employer]reditation Commission - Echocardiography. Prepared and Electronically Authenticated Jose Carlos Couch MD Confirmed 07/24/2018 15:39 us Jose Carlos Couch MD ORDERABLES Final Resu lt INTERFACE SYSTEM Refer to clinic/hospital department documented in this encounter Visit Diagnoses Diagnosis Essential hypertension Unspecified essential hypertension Chest pain, unspecified type SOB (shortness of breath) Shortness of breath Essential hypertension Unspecified essential hypertension Chest pain, unspecified type SOB (shortness of breath) Shortness of breath documented in this encounter Additional Health Concerns Infection Onset Date Last Indicated Resolved Time R/O COVID-19 09/09/2019 09/09/2019 09/11/2019 3:34 AM CDT documented as of this encounter Care Teams C Software Developer Relationship Specialty Start Date End Date Sierra Connelly DO [address] [place] [address] PCP - General Family Practice 10/18/09 documented as of this encounter
--- OUTSIDE RECORDS SUMMARY | 2024-11-14 20:33 | XMS_ITS | Encounter Summary ---
Author Organization [facility] Address [address] [place] [address] Care Team Providers Care Drive Away Driver Name Role Phone Sierra Connelly DO Primary Care Provider [phone] Encounter Details Date Type Department Care Team (Late st Contact Info) Description 11/15/2009 Ancillary Orders [facility] Cardiac Thoracic Vascular Surg [place] [address] [place] [address] Celestina Stringer, HERBER NO ADDRESS ON FILE PAD (Peripheral Artery Disease) Social History Tobacco Use Types Packs/Day Years Used Date Smoking Tobacco: Former Cigarettes 1 44 Comments:quit 11 weeks ago Alcohol Use Standard Drinks/Week Comments No 0 (1 standard drink = 0.6 oz pur e alcohol) 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 Sex and Gender Information Value Date Recorded Sex Assigned at Not on file 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 Gender Identity Not on file Sexual Orientation Not on file documented as of this encounter Plan of Treatment Not on file documented as of this encounter Visit Diagnoses Diagnosis PAD (peripheral artery disease) Unspecified disorders of arteries and arterioles documented in this encounter Additional Health Concerns Infection Onset Date Last Indicated Resolved Time R/O COVID-19 09/09/2019 09/09/2019 09/11/2019 3:34 AM CDT documented as of this encounter Care Teams Drive Away Driver Relationship Specialty Start Date End Date Sierra Connelly DO [address] [place] [address] PCP - General Family Practice 10/18/09 documented as of this encounter
--- OUTSIDE RECORDS SUMMARY | 2024-11-14 20:33 | XMS_ITS | Encounter Summary ---
Author Organization [facility] Address [address] [place] [address] Care Team Providers Care Shampoo Technician Name Role Phone Sierra Connelly DO Primary Care Provider [phone] Encounter Details Date Type Department Care Team (Latest Contact Info) Description 06/15/1998 Outpatient Historical [facility] Gwyn Mckinnon MD [address] [place] [id number] Sebaceous cyst (Primary Dx); Mixed hyperlipidemia; Other malaise and fatigue Social History Tobacco Use Types Packs/Day Years Used Date Smoking Tobacco: Never Assessed Sex and Gender Information Value Date Recorded Sex Assigned at Not on file 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 Gender Identity Not on file Sexual Orientation Not on file documented as of this encounter Plan of Treatment Not on file documented as of this encounter Visit Diagnoses Diagnosis Sebaceous cyst- Primary Mixed hyperlipidemia Other malaise and fatigue documented in this encounter Additional Health Concerns Infection Onset Date Last Indicated Resolved Time R/O COVID-19 09/09/2019 09/09/2019 09/11/2019 3:34 AM CDT documented as of this encounter Care Teams Shampoo Technician Relationship Specialty Start Date End Date Sierra Connelly DO [address] [place] [address] PCP - General Family Practice 10/18/09 documented as of this encounter
--- OUTSIDE RECORDS SUMMARY | 2024-11-14 20:33 | XMS_ITS | Encounter Summary ---
Author Organization [facility] Address [address] [place] [address] Care Team Providers Care Printer Technician Name Role Phone Sierra Connelly DO Primary Care Provider Encounter Details Date Type Department Care Team (Latest Contact Info) Description 01/25/2000 Outpatient Historical [facility] Dawson Anne MD [address] [facility] [address] [place] [phone] Benign maria luisa scalp/skin neck (Primary Dx); Benign neoplasm of skin of other and unspecified parts of face Social History Tobacco Use Types Packs/Day Years Used Date Smoking Tobacco: Never Assessed Sex and Gender Information Value Date Recorded Sex Assigned at Not on file 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 Gender Identity Not on file Sexual Orientation Not on file documented as of this encounter Plan of Treatment Not on file documented as of this encounter Visit Diagnoses Diagnosis Benign maria luisa scalp/skin neck- Primary Benign neoplasm of scalp and skin of neck Benign neoplasm of skin of other and unspecified parts of face documented in this encounter Additional Health Concerns Infection Onset Date Last Indicated Resolved Time R/O COVID-19 09/09/2019 09/09/2019 09/11/2019 3:34 AM CDT documented as of this encounter Care Teams Printer Technician Relationship Specialty Start Date End Date Sierra Connelly DO [address] [place] [address] PCP - General Family Practice 10/18/09 documented as of this encounter
--- OUTSIDE RECORDS SUMMARY | 2024-11-14 20:33 | XMS_ITS | Encounter Summary ---
Author Organization [facility] Address [address] [place] [address] Care Team Providers Care Bi Data Architect Name Role Phone Sierra Connelly DO Primary Care Provider Encounter Details Date Type Department Care Team (Latest Contact Info) Description 03/07/2002 Outpatient Historical [facility] [address] [place] [address] [place] [address] Gwyn Mckinnon MD [address] [place] [phone] KERATODERMA, ACQUIRED (Primary Dx) Social History Tobacco Use Types Packs/Day Years Used Date Smoking Tobacco: Never Assessed Sex and Gender Information Value Date Recorded Sex Assigned at Not on file 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 Gender Identity Not on file Sexual Orientation Not on file documented as of this encounter Plan of Treatment Not on file documented as of this encounter Visit Diagnoses Diagnosis Acquired keratoderma- Primary documented in this encounter Additional Health Concerns Infection Onset Date Last Indicated Resolved Time R/O COVID-19 09/09/2019 09/09/2019 09/11/2019 3:34 AM CDT documented as of this encounter Care Teams Bi Data Architect Relationship Specialty Start Date End Date Sierra Connelly DO [address] [place] [address] PCP - General Family Practice 10/18/09 documented as of this encounter
--- OUTSIDE RECORDS SUMMARY | 2024-11-14 20:33 | XMS_ITS | Encounter Summary ---
Author Organization [facility] Address [address] [place] [address] Dr. 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
--- OUTSIDE RECORDS SUMMARY | 2024-11-14 20:33 | XMS_ITS | Encounter Summary ---
Author Organization [facility] Address [address] [place] [address] Care Team Providers Care Jewelry Engraver Name Role Phone Sierra Connelly DO Primary Care Provider Encounter Details Date Type Department Care Team (Latest Contact Info) Description 10/27/1999 Outpatient Historical [facility] Gwyn Mckinnon MD [address] [place] [phone] Cellulitis and abscess of finger, unspecified (Primary Dx); Ingrowing nail Social History Tobacco Use Types Packs/Day Years Used Date Smoking Tobacco: Never Assessed Sex and Gender Information Value Date Recorded Sex Assigned at Not on file 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 Gender Identity Not on file Sexual Orientation Not on file documented as of this encounter Plan of Treatment Not on file documented as of this encounter Visit Diagnoses Diagnosis Cellulitis and abscess of finger, unspecified- Primary Ingrowing nail documented in this encounter Additional Health Concerns Infection Onset Date Last Indicated Resolved Time R/O COVID-19 09/09/2019 09/09/2019 09/11/2019 3:34 AM CDT documented as of this encounter Care Teams Jewelry Engraver Relationship Specialty Start Date End Date Sierra Connelly DO [address] [place] [address] PCP - General Family Practice 10/18/09 documented as of this encounter
--- OUTSIDE RECORDS SUMMARY | 2024-11-14 20:33 | XMS_ITS | Encounter Summary ---
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
--- OUTSIDE RECORDS SUMMARY | 2024-11-14 20:33 | XMS_ITS | Encounter Summary ---
Author Organization [facility] Address [address] [place] [address] Care Team Providers Care Er Rn Name Role Phone Sierra Connelly DO Primary Care Provider [phone] Encounter Details Date Type Department Care Team (Latest Contact Info) Description 09/20/1998 Outpatient Historical [facility] Charly Adams MD NO ADDRESS ON FILE Benign neoplasm of skin of other and unspecified parts of face (Primary Dx) Social History Tobacco Use Types Packs/Day Years Used Date Smoking Tobacco: Never Assessed Sex and Gender Information Value Date Recorded Sex Assigned at Not on file 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 Gender Identity Not on file Sexual Orientation Not on file documented as of this encounter Plan of Treatment Not on file documented as of this encounter Visit Diagnoses Diagnosis Benign neoplasm of skin of other and unspecified parts of face- Primary documented in this encounter Additional Health Concerns Infection Onset Date Last Indicated Resolved Time R/O COVID-19 09/09/2019 09/09/2019 09/11/2019 3:34 AM CDT documented as of this encounter Care Teams Er Rn Relationship Specialty Start Date End Date Sierra Connelly DO [address] [place] [address] PCP - General Family Practice 10/18/09 documented as of this encounter
--- OUTSIDE RECORDS SUMMARY | 2024-11-14 20:33 | XMS_ITS | Encounter Summary ---
Author Organization [facility] Address [address] [place] [address] Care Team Providers Care Senior Quality Manager Name Role Phone Sierra Connelly DO Primary Care Provider Encounter Details Date Type Department Care Team (Latest Contact Info) Description 10/17/1999 Outpatient Historical [facility] Gwyn Mckinnon MD [address] [place] [phone] Onychia of finger (Primary Dx); Insomnia, unspecified; Depressive disorder, not elsewhere classified Social History Tobacco Use Types Packs/Day Years Used Date Smoking Tobacco: Never Assessed Sex and Gender Information Value Date Recorded Sex Assigned at Not on file 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 Gender Identity Not on file Sexual Orientation Not on file documented as of this encounter Plan of Treatment Not on file documented as of this encounter Visit Diagnoses Diagnosis Onychia of finger- Primary Onychia and paronychia of finger Insomnia, unspecified Depressive disorder, not elsewhere classified documented in this encounter Additional Health Concerns Infection Onset Date Last Indicated Resolved Time R/O COVID-19 09/09/2019 09/09/2019 09/11/2019 3:34 AM CDT documented as of this encounter Care Teams Senior Quality Manager Relationship Specialty Start Date End Date Sierra Connelly DO [address] [place] [address] PCP - General Family Practice 10/18/09 documented as of this encounter
--- OUTSIDE RECORDS SUMMARY | 2024-11-14 20:33 | XMS_ITS ---
Author Organization [facility] Address [address] [place] [address] Care Team Providers Care Band Lining Bander Name Role Phone MaricelSierra zhou Jag LORENZO Primary Care Provider Active Problems Problem Noted Date Diagnosed Date Infrarenal abdominal aortic aneurysm (AAA) witho ut rupture 10/31/2024 Pancreatic lesion 10/31/2024 Rotator cuff impingement syndrome of right shoul katrin 07/01/2024 Absolute anemia 06/15/2024 Vitamin D deficiency 06/15/2024 Chronic right shoulder pain 06/13/2024 Hard to intubate 04/24/2024 Overview (04/24/2024): Mistake: not difficult Non-small cell cancer of right lung 04/24/2024 Malignant neoplasm of middle lobe of right lung 03/18/2024 Cancer Staging:Clinical stage from 04/16/2024: cT1b, cNX, cM0 - Unsigned Frail elderly 01/28/2024 Bilateral carotid artery stenosis 12/19/2023 H/O excision of lamina of ce rvical vertebra for decompression of spinal cord 12/19/2023 Chronic neck pain 12/19/2023 Venous stasis dermatitis of both lower extremiti es 12/15/2022 Bilateral lower extremity edema 12/15/2022 Acquired hypothyroidism 12/15/2022 Preoperative general physical examination 2021 History of CVA (cerebrovascular accident) 2021 Chronic respiratory failure with hypoxia and hyp ercapnia 11/05/2021 Obesity (BMI 30.0-34.9) 11/05/2021 Spinal stenosis of cervical region 09/20/2021 Cervical spinal cord compression 09/20/2021 Generalized anxiety disorder 08/07/2021 Atherosclerosis of [place] of both lower extremities with intermittent claudication 05/25/2019 BPH without obstruction/lower urinary tract symp toms 04/25/2017 Mixed simple and mucopurulent chronic bronchitis 04/06/2017 Pseudophakia, left eye 01/01/2017 Cervical spondylosis without myelopathy 09/09/19 15 Disorder of left rotator cuff 09/08/2014 Chronic midline low back pain with sciatica 03/29 Essential hypertension 09/29/2009 Mixed hyperlipidemia 09/29/2009 PVD (peripheral vascular disease) 05/10/2009 Tobacco use disorder 05/10/2009 Current Treatment and Therapy Plans No current plan information found. Past Treatment and Therapy Plans No past plan information found. Lifetime Dose Tracking * Chemical Lifetime Dose Automatic Entry Manual Entr y Effective Dose 164.97 mSv 151.77 mSv 13.2 mSv Total DLP 5,066.78 DLP 4,104.78 DLP 962 DLP CTDIvol Max 218.54 mGy 188.04 mGy 30.5 mGy CTDIvol Min 149.34 mGy 118.84 mGy 30.5 mGy Resolved Problems Problem Noted Date Diagnosed Date Resolved Date Morbid obesity 09/10/2022 04/01/2023 Atherosclerosis of [place] of extremity with intermittent claudication 03/17/2016 Bursitis of foot, R. 09/02/2012 015 Plantar fasciitis-R. 05/27/2012 015 History of peripheral vascular disease 05/27/2012 03/31/2020 Calcaneal spur, mild inferior-R. 05/27/2012 06/11/2014 Personal history of smoking 05/27/2012 06/11/2014
--- OUTSIDE RECORDS SUMMARY | 2024-11-14 20:33 | XMS_ITS | Clinical Summary ---
Author Organization [facility] Address [address] [place] [address] Care Team Providers Care Product Tester Fiberglass Name Role Phone Sierra Connelly Jag LORENZO Primary Care Provider Allergies Active Allergy Reactions Criticality Noted Date Comments Atorvastatin Other (See Comments) 11/14/2011 Leg cramps, only caused by generic statin, can take Brand name Lipitor. Metoprolol Nausea and Vomiting Low 2023 Simvastatin Muscle Pain Low 03/11/2012 Varenicline Other (See Comments) 03/17/2009 Nightmares, suicidal thoughts--Chantix Medications nebulizerIndicat ions:COPD with exacerbation ([facility]) Length of need 99 monthsNebulizer with compressor, Kit: Disposable Nebulizer Kit, 2 per month, filters , areosol mask: No. Name of Medication Albuterol 1 Each 0 08/11/19 20 Active cloNIDine HCL (CATAPRES) 0.1 mg tabletIndication s:Essential hypertension Take 1 Tablet (0.1 mg) by mouth 3 times daily. 90 Tablet 2 02/02/20 21 Active Additional Information Patient not taking.Reported on 10/16/2024 acetaminophen (TYLENOL) 500 mg tablet Take 1,000 mg by mouth every 8 hours as needed for Pain or Pain, Break-Through. Active potassium chloride (KLOR-CON) 20 mEq Extended Release tabletIndication s:Bilateral lower extremity edema TAKE 1 TABLET BY MOUTH EVERY DAY 30 Tablet 11/10/19 23 Active furosemide (LASIX) 80 mg tabletIndication s:Bilateral lower extremity edema Take 1 Tablet (80 mg) by mouth daily in the morning. 90 Tablet 3 04/01/19 24 Active PARoxetine HCl (PAXIL) 40 mg tabletIndication s:Generalized anxiety disorder TAKE ONE TABLET BY MOUTH DAILY AT 9AM 90 Tablet 4 10/24/19 24 Active losartan (COZAAR) 50 mg tabletIndication s:Essential hypertension Take 1 Tablet (50 mg) by mouth daily. 100 Tablet 3 12/19/19 24 Active loperamide (IMODIUM) 2 mg capsuleIndicatio ns:Acute diarrhea Take 1 Capsule (2 mg) by mouth every 3 hours as needed for Diarrhea/Loose Stools. 30 Capsule 2 12/19/19 24 Active ipratropium-albu teroL (DUONEB) 0.5 mg-3 mg(2.5 mg base)/3 mL Solution for NebulizationIndi cations:COPD with exacerbation (CMS/HCC) Take 3 mL by inhalation every 4 hours as needed for Wheezing. 90 mL 11 02/13/20 24 Active nicotine polacrilex (NICORETTE) 4 mg lozenge, miniIndications: Tobacco use disorder 1 Lozenge (4 mg) by Mouth/Throat route every 2 hours as needed for Smoking Cessation. 135 Lozenge 3 04/23/19 25 Active amLODIPine (NORVASC) 5 mg tabletIndication s:Essential hypertension TAKE 1 TABLET BY MOUTH EVERY DAY 100 Tablet 3 05/17/19 25 Active cholecalciferol 1,250 mcg (50,000 unit) CapsuleIndicatio ns:Vitamin D deficiency Take 1 Capsule (50,000 Units) by mouth every 7 days. 12 Capsule 3 06/16/19 25 Active cyanocobalamin 1,000 mcg TabletIndication s:Other vitamin B12 deficiency anemia Take 1 Tablet (1,000 mcg) by mouth daily. 90 Tablet 3 06/16/19 25 Active folic acid (FOLVITE) 1 mg tabletIndication s:Other folate deficiency anemias Take 1 Tablet (1 mg) by mouth daily. 90 Tablet 3 06/16/19 25 Active bisoprolol 2.5 mg Tablet Take 2.5 mg by mouth daily. Hold if heart rate less than 60bpm 90 Tablet 3 08/08/19 25 Active evolocumab (Repatha Anthonyick) 140 mg/mL Pen Injector Inject 1 mL (140 mg) by subcutaneous injection every 2 weeks. 6 mL 3 08/08/19 25 Active terazosin (HYTRIN) 10 mg capsuleIndicatio ns:BPH without obstruction/lowe r urinary tract symptoms take 1 capsule BY MOUTH EVERY DAY at 9pm AT BEDTIME 90 Capsule 4 08/09/19 25 Active budesonide-formo teroL (SYMBICORT) 160-4.5 mcg/actuation HFA Aerosol Inhaler INHALE TWO PUFFS BY MOUTH TWICE DAILY 10.2 Gram 6 09/04/19 25 Active albuterol sulfate HFA 90 mcg/actuation aerosol inhalerIndicatio ns:Chronic obstructive pulmonary disease, unspecified COPD type (CMS/HCC) INHALE TWO PUFFS EVERY 6 HOURS NEEDED FOR SHORTNESS OF BREATH 8.5 Gram 09/04/19 25 Active oxyCODONE (OxyCONTIN) 30 mg Controlled Release 12 hour crush resistant tabletIndication s:Malignant neoplasm of middle lobe of right lung (CMS/HCC),Chroni c midline low back pain with bilateral sciatica,Anemia, chronic disease,Essentia l hypertension,Chr onic respiratory failure with hypoxia and hypercapnia (CMS/HCC),Acquir ed hypothyroidism,G eneralized anxiety disorder,Mixed hyperlipidemia,F rail elderly,BPH without obstruction/lowe r urinary tract symptoms,Venous stasis dermatitis of both lower extremities,Athe rosclerosis of [place] artery of both lower extremities with intermittent claudication,Chr onic neck pain,PVD (peripheral vascular disease),Bilater al carotid artery stenosis,History of CVA (cerebrovascular accident),Obesit y (BMI 30.0-34.9),Spina l stenosis of cervical region,Tobacco use disorder Take 1 Tablet (30 mg) by mouth every 12 hours. Do not fill until 10/16/2024 Max Daily Amount: 60 mg 60 Tablet 10/01/19 25 Active Additional Information Patient not taking.Reported on 10/16/2024 oxyCODONE (OxyCONTIN) 30 mg Controlled Release 12 hour crush resistant tabletIndication s:Malignant neoplasm of middle lobe of right lung (CMS/HCC),Chroni c midline low back pain with bilateral sciatica,Anemia, chronic disease,Essentia l hypertension,Chr onic respiratory failure with hypoxia and hypercapnia (CMS/HCC),Acquir ed hypothyroidism,G eneralized anxiety disorder,Mixed hyperlipidemia,F rail elderly,BPH without obstruction/lowe r urinary tract symptoms,Venous stasis dermatitis of both lower extremities,Athe rosclerosis of [place] artery of both lower extremities with intermittent claudication,Chr onic neck pain,PVD (peripheral vascular disease),Bilater al carotid artery stenosis,History of CVA (cerebrovascular accident),Obesit y (BMI 30.0-34.9),Spina l stenosis of cervical region,Tobacco use disorder Take 1 Tablet (30 mg) by mouth every 12 hours. Do not fill until 11/16/2024 Max Daily Amount: 60 mg 60 Tablet 10/01/19 25 Active Additional Information Patient not taking.Reported on 10/16/2024 oxyCODONE (OxyCONTIN) 30 mg Controlled Release 12 hour crush resistant tabletIndication s:Malignant neoplasm of middle lobe of right lung (CMS/HCC),Chroni c midline low back pain with bilateral sciatica,Anemia, chronic disease,Essentia l hypertension,Chr onic respiratory failure with hypoxia and hypercapnia (CMS/HCC),Acquir ed hypothyroidism,G eneralized anxiety disorder,Mixed hyperlipidemia,F rail elderly,BPH without obstruction/lowe r urinary tract symptoms,Venous stasis dermatitis of both lower extremities,Athe rosclerosis of [place] artery of both lower extremities with intermittent claudication,Chr onic neck pain,PVD (peripheral vascular disease),Bilater al carotid artery stenosis,History of CVA (cerebrovascular accident),Obesit y (BMI 30.0-34.9),Spina l stenosis of cervical region,Tobacco use disorder Take 1 Tablet (30 mg) by mouth every 12 hours. Do not fill until 12/16/2024 Max Daily Amount: 60 mg 60 Tablet 10/01/19 25 Active Additional Information Patient not taking.Reported on 10/16/2024 oxyCODONE (ROXICODONE) 10 mg tabletIndication s:Malignant neoplasm of middle lobe of right lung (CMS/HCC),Chroni c midline low back pain with bilateral sciatica Take 1 Tablet (10 mg) by mouth 1 time daily as needed for Pain, Break-Through. Max Daily Amount: 10 mg 30 Tablet 10/01/19 25 Active oxyCODONE (ROXICODONE) 10 mg tabletIndication s:Malignant neoplasm of middle lobe of right lung (CMS/HCC),Chroni c midline low back pain with bilateral sciatica Take 1 Tablet (10 mg) by mouth 1 time daily as needed for Pain, Break-Through. Do not fill until 10/31/2024 Max Daily Amount: 10 mg 30 Tablet 10/01/19 25 Active Additional Information Patient not taking.Reported on 10/16/2024 oxyCODONE (ROXICODONE) 10 mg tabletIndication s:Malignant neoplasm of middle lobe of right lung (CMS/HCC),Chroni c midline low back pain with bilateral sciatica Take 1 Tablet (10 mg) by mouth 1 time daily as needed for Pain, Break-Through. Do not fill until 11/30/2024 Max Daily Amount: 10 mg 30 Tablet 10/01/19 25 Active Additional Information Patient not taking.Reported on 10/16/2024 clopidogreL (PLAVIX) 75 mg TabletIndication s:Atherosclerosi s of [place] arteries of extremities with intermittent claudication, bilateral legs TAKE 1 TABLET BY MOUTH EVERY DAY 100 Tablet 3 10/04/19 25 Active ondansetron (ZOFRAN ODT) 4 mg Tablet, Rapid DissolveIndicati ons:Nausea Take 1 Tablet (4 mg) by mouth every 8 hours as needed for Nausea/Emesis. Dissolve tablet on top of tongue, then swallow with saliva. 30 Tablet 3 10/11/19 25 Active promethazine (PHENERGAN) 25 mg tabletIndication s:Gastroenteriti s Take 1 Tablet (25 mg) by mouth every 8 hours as needed for Nausea/Emesis. 90 Tablet 3 10/17/19 25 Active spironolactone (ALDACTONE) 25 mg tablet Take 0.5 Tablets (12.5 mg) by mouth daily. 45 Tablet 3 11/15/19 25 Active Active Problems Problem Noted Date Diagnosed Date [...] 09/20/2021 Generalized anxiety disorder 08/07/2021 Atherosclerosis of [place] ar issa of both lower extremities with intermittent claudication 05/25/2019 BPH without obstruction/lower urinary tract symp toms 04/25/2017 Mixed simple and mucopurulent chronic bronchitis 04/06/2017 Pseudophakia, left eye 01/01/2017 Cervical spondylosis without myelopathy 09/09/19 Disorder of left rotator cuff 09/08/2014 Chronic midline low back pain with sciatica 03/29 Essential hypertension 09/29/2009 Mixed hyperlipidemia 09/29/2009 PVD (peripheral vascular disease) 05/10/2009 Tobacco use disorder 05/10/2009 Resolved Problems Problem Noted Date Diagnosed Date Resolved Date Morbid obesity 09/10/2022 04/01/2023 Atherosclerosis of [place] ar issa of extremity with intermittent claudication 03/17/2016 Bursitis of foot, R. 09/02/2012 015 Plantar fasciitis-R. 05/27/2012 015 History of peripheral vascular disease 05/27/2012 03/31/2020 Calcaneal spur, mild inferior-R. 05/27/2012 06/11/2014 Personal history of smoking 05/27/2012 06/11/2014 Encounters Date Type Department Care Team Description 11/13/2024 [facility] [address] [place] [address] Sierra Connelly, DO 11/11/2024 External Device Data STL ABSTRACTION Provider, Abstract 10/29/2024 3:45 PM CDT - 10/29/2024 11:59 PM CDT Hospital Encounter [facility] CT Scan [place] [address] [place] [phone] [place]on Tristencarlitasandra Stone, DIVISION SALES MANAGER Discharge Disposition: Home or Self Care 10/20/2024 Results Follow-Up [facility] [address] [place] [address] [place] Arian Stone, DIVISION SALES MANAGER CBC WITH DIFFERENTIAL, COMPREHENSIVE METABOLIC PANEL, LIPASE, Additional followed-up results: 4 10/16/2024 3:20 PM CDT Office Visit [facility] [address] [place] [address] [place] Arian Stone, DIVISION SALES MANAGER Gastroenteritis (Primary Dx); Anemia due to other cause, not classified; Chronic cough 10/14/2024 External Device Data STL ABSTRACTION Provider, Abstract 10/14/2024 External Device Data STL ABSTRACTION Provider, Abstract 10/10/2024 4:20 PM CDT Office Visit [facility] [address] [place] [address] [place] Tristencarlitasandra Waite, DIVISION SALES MANAGER Gastroenteritis (Primary Dx); Dark urine; Nausea 10/05/2024 Results Follow-Up [facility] [address] [place] [address] Sierra Connelly, DO VITAMIN B12 LEVEL 10/05/2024 Orders Only [facility] [address] [place] [address] Sierra Connelly, 10/03/2024 Refill [facility] [address] [place] [address] Sierra Connelly, DO Atherosclerosis of [place] arteries of extremities with intermittent claudication, bilateral legs 10/02/2024 Orders Only [facility] [address] [place] [address] Sierra Connelly DO Macrocytosis (Primary Dx) 10/02/2024 Results Follow-Up [facility] [address] [place] [address] Sierra Connelly DO URIC ACID 09/30/2024 11:40 AM CDT Office Visit [facility] [address] [place] [phone] Sierra Connelly DO Chronic midline low back pain with bilateral sciatica (Primary Dx); Malignant neoplasm of middle lobe of right lung (CMS/HCC); Anemia, chronic disease; Essential hypertension; Chronic respiratory failure with hypoxia and hypercapnia (CMS/HCC); Acquired hypothyroidism; Generalized anxiety disorder; Mixed hyperlipidemia; Frail elderly; BPH without obstruction/lower urinary tract symptoms; Venous stasis dermatitis of both lower extremities; Atherosclerosis of [place] artery of both lower extremities with intermittent claudication; Chronic neck pain; PVD (peripheral vascular disease); Bilateral carotid artery stenosis; History of CVA (cerebrovascular accident); Obesity (BMI 30.0-34.9); Spinal stenosis of cervical region; Tobacco use disorder 09/30/2024 Refill [facility] [address] [place] [address] Sierra Connelly DO Malignant neoplasm of middle lobe of right lung (CMS/HCC); Chronic midline low back pain with bilateral sciatica 09/29/2024 2:00 PM CDT - 09/29/2024 11:59 PM CDT Hospital Encounter [facility]3] [address] [place] [phone] Khris Gutierrez MD Discharge Disposition: Home or Self Care 09/15/2024 Refill [facility] [address] [place] [phone] Sierra Connelly, Malignant neoplasm of middle lobe of right lung (CMS/HCC); Chronic midline low back pain with bilateral sciatica 09/11/2024 Telephone [facility] [address] [place] [phone] Sierra Connelly DO Provider Call 09/10/2024 External Device Data STL ABSTRACTION Provider, Abstract 09/09/2024 1:19 PM CDT - 09/09/2024 11:59 PM CDT Hospital Encounter [facility] [address] [place] [address] Heather Guerrero PA-C Discharge Disposition: Home or Self Care 09/09/2024 External Device Data STL ABSTRACTION Provider, Abstract 09/03/2024 Telephone [facility] [address] [place] [phone] Dominga Saenz, TYLER 11/27/24 Letty Appt Question 09/02/2024 Refill [facility] [address] [place] [phone] Sierra Connelly DO Chronic obstructive pulmonary disease, unspecified COPD type (CMS/HCC) 09/02/2024 Results Follow-Up [facility] [address] [place] [phone] Jaime Sky, URBANO CT CARDIAC CHEST INTERPRETATION 09/01/2024 1:50 PM CDT - 09/01/2024 11:59 PM CDT Hospital Encounter [facility] CT Scan [place] [address] [place] [address] Caroline Delgado MD Discharge Disposition: Home or Self Care 08/25/2024 1:10 PM CDT - 08/25/2024 11:59 PM CDT Hospital Encounter [facility] Nuclear Medicine [address] [place] [phone] Khris Gutierrez MD Discharge Disposition: Home or Self Care 08/25/2024 1:05 PM CDT - 08/25/2024 11:59 PM CDT Hospital Encounter [facility] Nuclear Medicine [address] [place] [phone] Khris Gutierrez MD Discharge Disposition: Home or Self Care 08/25/2024 12:55 PM CDT - 08/25/2024 11:59 PM CDT Hospital Encounter [address] [phone] Khris Gutierrez MD Discharge Disposition: Home or Self Care 08/25/2024 12:54 PM CDT - 08/25/2024 11:59 PM CDT Hospital Encounter [address] [address] Khris Gutierrez MD Discharge Disposition: Home or Self Care 08/21/[address] [phone] Juliet Ramirez, PCT cardiac pet stress 08/19/2024 External Device Data STL ABSTRACTION Provider, Abstract 08/17/2024 [facility] [address] [place] [phone] Sierra Connelly, Malignant neoplasm of middle lobe of right lung (CMS/HCC); Chronic midline low back pain with bilateral sciatica 08/14/2024 Results Follow-Up [facility] Cardiology Heart [address] [place] [address] Jaime Sky RN BRAIN NATRIURETIC PEPTIDE, BNP OR PROBNP, MAGNESIUM LEVEL, BASIC METABOLIC PANEL, Additional followed-up results: 3 from Last 3 Months Immunizations Immunization Administration Dates Next Due (PREVNAR 13)(6 WKS UP) PNEUM OCOCCAL CONJUGATE (PCV13) 0.5 ML, IM 01/12/2017 (PREVNAR 20)(6 WKS UP) PNEUM OCOCCAL CONJUGATE VACCINE 20-VALENT (PCV20), POLYSACCHARIDE [id number] CONJUGATE, ADJUVANT 0.5 ML (PF) IM 12/15/2022 (TDVAX)(7 YRS UP) TETANUS AN D DIPHTHERIA TOXOIDS, ADSORBED (2 LF OF TETANUS TOXOID AND 2 LF OF DIPHTHERIA TOXOID), 0.5ML (PF), IM 10/20/2004 INFLUENZA VACCINE HIGH DOSE QUADRIVALENT 65 YR UP PF IM 10/24/2023,12/15/2022 INFLUENZA VACCINE QUADRIVALENT 6 MOS UP PF IM ,01/17/2016 Influenza Seasonal Unspecified Formulation IM ,12/27/2012 Influenza Vaccine Split 3+ Yrs IM 01/29/2013 Pneumococcal conjugate, unspecified formulation 02/26/2007 Family History Medical History Relation Name Comments No Known Problems Brother 1 Hector Other Brother 2 Johnnie benign brain tu mors Other Daughter 1 passed age 29 No Known Problems Daughter 2 No Known Problems Daughter 3 Cancer Father Sixto Alvarado Hypertension Father Sixto Alvarado Heart Disease Maternal Grandfather Hypertension Maternal Grandfather Stroke Maternal Grandfather Heart Disease Maternal Grandmother Hypertension Maternal Grandmother Stroke Maternal Grandmother Cataract Mother Hanane Mckay Depression Mother Hanane Mckay Heart Disease Mother Hanane Mckay Hypertension Mother Hanane Mckay Stroke Mother Hanane Mckay Depression Sister 1 Zohra Diabetes Sister 1 Zohra Other Sister 2 passed as infan t Other Sister 3 passed as infan t Anxiety Sister 4 Kiersten Drug Abuse Sister 5 Jolie Other Sister 6 Carmen passed in MVA Seizures Sister 6 Carmen No Known Problems Son Relation Name Status Comments Brother 1 Hector Alive Brother 2 Johnnie Daughter 1 Daughter 2 Alive Daughter 3 Alive Father Sixto Alvarado Maternal Grandfather Maternal Grandmother Mother Hanane Mckay Sister 1 Zohra Alive Sister 2 Sister 3 Sister 4 Kiersten Alive Sister 5 Jolie Alive Sister 6 Carmen Son Alive Social History Tobacco Use Types Packs/Day Years Used Date Smoking Tobacco: Former Cigarettes 1 60.3 0 1963 - 2024 Passive Smoke Exposure: Current Smokeless Tobacco: Never Tobacco Cessation:Counseling Given: Not Answered Alcohol Use Standard Drinks/Week Comments No 0 [...] on file Legal Sex 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 Gender Identity Not on file Sexual Orientation Not on file Last Filed Vital Signs Vital Sign Reading Time Taken Comments Blood Pressure 136/80 10/16/2024 3:26 PM CDT Pulse 77 10/16/2024 3:26 PM CDT Temperature 36.7 C (98 F) 10/16/2024 3:26 PM CDT Respiratory Rate 17 10/16/2024 3:26 PM CDT Oxygen Saturation 96% 10/16/2024 3:26 PM CDT Inhaled Oxygen Concentration - - Weight 86.5 kg (190 lb 9.6 oz) 10/16/2024 3:26 P M CDT Height 177.8 cm (5' 10 ) 10/16/2024 3:26 PM CDT Body Mass Index 27.35 10/16/2024 3:26 PM CDT Plan of Treatment Upcoming Encounters Date Type Department Care Team (Late st Contact Info) Description 11/27/2024 3:20 PM CDT Office Visit [facility] [address] [place] [address] Dominga Saenz, AUTO DAMAGE INSURANCE APPRAISER [address] [place] [address] 12/15/2024 3:00 PM CDT Appointment [facility] CT Scan [place] [address] [place] [address] Heather Guerrero PA-C [address] [place] [phone] 12/16/2024 1:20 PM CDT Office Visit [facility] [place] [address] [place] [address] Tristen Westoncarlitasandra Waite, [facility] [address] [place] [address] 12/22/2024 3:00 PM CDT Appointment [facility] [address] [address] [place] [address] Heather Guerrero PA-C [address] [place] [address] 01/13/2025 2:30 PM HOT METAL CAR OPERATOR Office Visit [facility] Pulmon[facility] [address] [place] [address] Zahraa Kelly MD [address] [place] [address] 03/31/2025 1:30 PM HOT METAL CAR OPERATOR Ancillary Procedure [facility] [place] [address] [place] [address] Lee Mejia MD [address] [place] [address] 03/31/2025 2:30 PM HOT METAL CAR OPERATOR Office Visit [facility] Vascular Surgery [place] [address] [place] [phone] Lee Mejia MD [address] [place] [address] Kaylee Arias, ARIS NO ADDRESS ON FILE 04/07/2025 11:00 AM HOT METAL CAR OPERATOR Office Visit [facility] [address] [place] [address] Sierra Connelly, DO [address] [place] [address] 07/07/2025 11:00 AM CDT Office Visit [facility] [address] [place] [address] Sierra Connelly, DO [address] [place] [address] Health Maintenance Due Date Last Done Comments Pre-Diabetes and Diabetes Screening 1955 ZOSTER VACCINE (1 of 2) 11/19/1974 FIT-DNA Q 3 years 11/19/2000 FIT/FOBT Q 1 year 11/19/2000 Flex Sig/CT Colonography Q 5 years 11/19/2000 DTAP/TDAP/TD VACCINES (1 - Tdap) 10/21/2004 10/21/19 05 RSV VACCINE (60+ or ) (1 - Risk 60-74 years 1-dose series) 2015 COLORECTAL SCREENING 01/15/2020 07/15/2019 Colorectal Cancer Screening 01/15/2020 Abdominal Aortic Aneurysm (A AA) Screening 11/19/2020 Medicare Advantage (MD) Preventative Visit/Annual Wellness Visit 02/27/2024 01/23/2024, 09/28/2022, 07/27/2021 INFLUENZA VACCINE (#1) 2024 , 12/15/2022, 12/12/2019, Additional history exists COVID-19 Vaccine (4 - 2025-2 6 season) 2024 01/31/2023, 05/12/2020, 04/02/2020 PNEUMOCOCCAL VACCINE 50+ YEARS Completed 1 , 01/12/2017, 02/26/2007 Medical Devices Implanted Type Area Vp Medical Device Identifier Shelf Expiration Date Model / Serial / Lot Lens Io Tecnis 1pc 23.0 [id number] - [id number] Implanted:Qty : 1 on 11/29/2016 by Eddie Engle MD Eye Left: Eye [employer] 09/23/2020 [id number] / [id number] / Hemostatic Surgiflo 8ml W/ Thrombin 2994 - [id number] Implanted:Qty : 1 on 02/24/2022 by Jakub Arriaza MD at [facility] Hemostatic N/A: Spine Cervical Posterior [employer] [id number] 03/28/2023 2994 / / [id number] - [id number] Implanted:Qty : 1 on 09/07/2009 Other Right: Vein [employer] 07/02/2014 V010 / [id number] / [id number] Description:cryovein sapheno us vein human allograft [id number] - [id number] Implanted:Qty : 1 on 09/28/2009 Other Left: Leg [employer] 05/03/2014 V010 / [id number] / [id number] Description:4mm - 6 mm x 68 cm cryolife graft Procedures Procedure Name Priority Date/Time Associated Diagnosis Comments CT ABDOMEN W CONTRAST Routine 10/29/2024 4:36 PM CDT Gastroenteritis ALLERGY PANEL, FOOD AND TREE NUTS W/COMP Routine 10/16/2024 3:50 PM CDT Gastroenteritis Chronic cough CELIAC DISEASE ANTIBODIES Routine 10/16/2024 3:50 PM CDT Gastroenteritis ALPHA-GAL PANEL Routine 10/16/2024 3:50 PM CDT Gastroenteritis Chronic cough LIPASE Routine 10/16/2024 3:50 PM CDT Gastroenteritis COMPREHENSIVE METABOLIC PANEL Routine 10/16/2024 3:50 PM CDT Gastroenteritis CBC WITH DIFFERENTIAL Routine 10/16/2024 3:50 PM CDT Gastroenteritis QUEST TEST IN QUESTION (ACTION NEEDED) (NO MY CHART) Routine 09/30/2024 12:55 PM CDT Malignant neoplasm of middle lobe of right lung (CMS/HCC) Chronic midline low back pain with bilateral sciatica Anemia, chronic disease Essential hypertension Chronic respiratory failure with hypoxia and hypercapnia (CMS/HCC) Acquired hypothyroidism Generalized anxiety disorder Mixed hyperlipidemia Frail elderly BPH without obstruction/lower urinary tract symptoms Venous stasis dermatitis of both lower extremities Atherosclerosis of [place] artery of both lower extremities with intermittent claudication Chronic neck pain PVD (peripheral vascular disease) Bilateral carotid artery stenosis History of CVA (cerebrovascular accident) Obesity (BMI 30.0-34.9) Spinal stenosis of cervical region Tobacco use disorder URIC ACID Routine 09/30/2024 12:55 PM CDT Malignant neoplasm of middle lobe of right lung (CMS/HCC) Chronic midline low back pain with bilateral sciatica Anemia, chronic disease Essential hypertension Chronic respiratory failure with hypoxia and hypercapnia (CMS/HCC) Acquired hypothyroidism Generalized anxiety disorder Mixed hyperlipidemia Frail elderly BPH without obstruction/lower urinary tract symptoms Venous stasis dermatitis of both lower extremities Atherosclerosis of [place] artery of both lower extremities with intermittent claudication Chronic neck pain PVD (peripheral vascular disease) Bilateral carotid artery stenosis History of CVA (cerebrovascular accident) Obesity (BMI 30.0-34.9) Spinal stenosis of cervical region Tobacco use disorder LIPID PANEL Routine 09/30/2024 12:55 PM CDT Malignant neoplasm of middle lobe of right lung (CMS/HCC) Chronic midline low back pain with bilateral sciatica Anemia, chronic disease Essential hypertension Chronic respiratory failure with hypoxia and hypercapnia (CMS/HCC) Acquired hypothyroidism Generalized anxiety disorder Mixed hyperlipidemia Frail elderly BPH without obstruction/lower urinary tract symptoms Venous stasis dermatitis of both lower extremities Atherosclerosis of [place] artery of both lower extremities with intermittent claudication Chronic neck pain PVD (peripheral vascular disease) Bilateral carotid artery stenosis History of CVA (cerebrovascular accident) Obesity (BMI 30.0-34.9) Spinal stenosis of cervical region Tobacco use disorder TSH Routine 09/30/2024 12:55 PM CDT Malignant neoplasm of middle lobe of right lung (CMS/HCC) Chronic midline low back pain with bilateral sciatica Anemia, chronic disease Essential hypertension Chronic respiratory failure with hypoxia and hypercapnia (CMS/HCC) Acquired hypothyroidism Generalized anxiety disorder Mixed hyperlipidemia Frail elderly BPH without obstruction/lower urinary tract symptoms Venous stasis dermatitis of both lower extremities Atherosclerosis of [place] artery of both lower extremities with intermittent claudication Chronic neck pain PVD (peripheral vascular disease) Bilateral carotid artery stenosis History of CVA (cerebrovascular accident) Obesity (BMI 30.0-34.9) Spinal stenosis of cervical region Tobacco use disorder COMPREHENSIVE METABOLIC PANEL Routine 09/30/2024 12:55 PM CDT Malignant neoplasm of middle lobe of right lung (CMS/HCC) Chronic midline low back pain with bilateral sciatica Anemia, chronic disease Essential hypertension Chronic respiratory failure with hypoxia and hypercapnia (CMS/HCC) Acquired hypothyroidism Generalized anxiety disorder Mixed hyperlipidemia Frail elderly BPH without obstruction/lower urinary tract symptoms Venous stasis dermatitis of both lower extremities Atherosclerosis of [place] artery of both lower extremities with intermittent claudication Chronic neck pain PVD (peripheral vascular disease) Bilateral carotid artery stenosis History of CVA (cerebrovascular accident) Obesity (BMI 30.0-34.9) Spinal stenosis of cervical region Tobacco use disorder CBC WITH DIFFERENTIAL Routine 09/30/2024 12:55 PM CDT Malignant neoplasm of middle lobe of right lung (CMS/HCC) Chronic midline low back pain with bilateral sciatica Anemia, chronic disease Essential hypertension Chronic respiratory failure with hypoxia and hypercapnia (CMS/HCC) Acquired hypothyroidism Generalized anxiety disorder Mixed hyperlipidemia Frail elderly BPH without obstruction/lower urinary tract symptoms Venous stasis dermatitis of both lower extremities Atherosclerosis of [place] artery of both lower extremities with intermittent claudication Chronic neck pain PVD (peripheral vascular disease) Bilateral carotid artery stenosis History of CVA (cerebrovascular accident) Obesity (BMI 30.0-34.9) Spinal stenosis of cervical region Tobacco use disorder VITAMIN B12 LEVEL [facility] (Auto-Fax) 09/30/2024 12:00 AM CDT Macrocytosis ECHO COMPLETE Routine 09/29/2024 2:35 PM CDT Bilateral carotid artery stenosis PAD (peripheral artery disease) Overweight (BMI 25.0-29.9) Chronic combined systolic and diastolic CHF (congestive heart failure) (CMS/HCC) Statin intolerance CT CHEST W CONTRAST Routine 09/01/2024 2 :17 PM CDT Non-small cell cancer of right lung (CMS/HCC) PET HEART PERF R&S W CT MULTI Routine 08/25/2024 2:30 PM CDT Bilateral carotid artery stenosis PAD (peripheral artery disease) Overweight (BMI 25.0-29.9) Chronic combined systolic and diastolic CHF (congestive heart failure) (CMS/HCC) Statin intolerance NM PHARMACOLOGICAL STRESS TEST Routine 08/25/2024 1:59 PM CDT Chest pain in adult CT CORONARY CALCIUM SCORE Routine 08/25/2024 1:49 PM CDT Chest pain in adult CT CARDIAC CHEST INTERPRETATION Routine 08/25/2024 1:48 PM CDT Chest pain in adult from Last 3 Months Results * CT ABDOMEN W CONTRAST (10/29/2024 4:36 PM CDT) Anatomical Region Laterality Modality Abdomen Computed Tomogra phy 10/29/2024 4:17 PM CDT Impressions 10/29/2024 5:58 PM CDT IMPRESSION: 1. No findings to specifically explain epigastric pain. 2. Distal colonic diverticulosis is partially imaged. 3. 8 mm hypodense/cystic lesion in the pancreatic tail. Surveillance imaging is suggested. 4. 4 cm infrarenal abdominal aortic aneurysm, with irregular atherosclerotic plaque elsewhere throughout the abdominal aorta. 5. Shotty retroperitoneal adenopathy is nonspecific but most frequently reactive. Narrative 10/29/2024 5:58 PM CDT EXAM: CT ABDOMEN W CONTRAST DATE/TIME OF EXAM: 10/29/2024 4:36 PM REASON FOR STUDY: Epigastric pain DIAGNOSIS: Gastroenteritis COMPARISON: TECHNIQUE: CT of the abdomen. Coronal and Sagittal reformats were obtained. CONTRAST: IOPAMIDOL 61 % INTRAVENOUS SOLUTION (SINGLE USE VIAL) Given:95 mL FINDINGS: Linear atelectasis versus scarring in the left lower lobe. Dense coronary artery calcifications. Extensive aortic atherosclerosis with irregular atherosclerotic plaque throughout the abdominal aorta. Infrarenal abdominal aortic aneurysm measures up to 4 cm in diameter. Atherosclerosis extends into the proximal portions of the renal arteries, celiac artery, and SMA. 5 mm hypodensity in the left hepatic lobe is too small to characterize. The gallbladder is contracted. The pancreas enhances homogenously. 8 mm cystic lesion in the pancreatic tail. The spleen is nonenlarged. The adrenal glands are unremarkable. There is no hydronephrosis. Small bilateral renal cortical cysts. Extensive renal vascular calcifications. The imaged portion of the bowel is nondistended. The appendix is normal in CT appearance. Distal colonic diverticulosis is partially imaged. The stomach is nondistended with no obvious wall thickening. Shotty retroperitoneal adenopathy without threshold pathologic enlargement. Procedure Note Giacomo English MD - 10/29/2024 EXAM: CT ABDOMEN W CONTRAST DATE/TIME OF EXAM: 10/29/2024 4:36 PM REASON FOR STUDY: Epigastric pain DIAGNOSIS: Gastroenteritis COMPARISON: TECHNIQUE: CT of the abdomen. Coronal and Sagittal reformats were obtained. CONTRAST: IOPAMIDOL 61 % INTRAVENOUS SOLUTION (SINGLE USE VIAL) Given:95 mL FINDINGS: Linear atelectasis versus scarring in the left lower lobe. Dense coronary artery calcifications. Extensive aortic atherosclerosis with irregular atherosclerotic plaque throughout the abdominal aorta. Infrarenal abdominal aortic aneurysm measures up to 4 cm in diameter. Atherosclerosis extends into the proximal portions of the renal arteries, celiac artery, and SMA. 5 mm hypodensity in the left hepatic lobe is too small to characterize. The gallbladder is contracted. The pancreas enhances homogenously. 8 mm cystic lesion in the pancreatic tail. The spleen is nonenlarged. The adrenal glands are unremarkable. There is no hydronephrosis. Small bilateral renal cortical cysts. Extensive renal vascular calcifications. The imaged portion of the bowel is nondistended. The appendix is normal in CT appearance. Distal colonic diverticulosis is partially imaged. The stomach is nondistended with no obvious wall thickening. Shotty retroperitoneal adenopathy without threshold pathologic enlargement. IMPRESSION: 1. No findings to specifically explain epigastric pain. 2. Distal colonic diverticulosis is partially imaged. 3. 8 mm hypodense/cystic lesion in the pancreatic tail. Surveillance imaging is suggested. 4. 4 cm infrarenal abdominal aortic aneurysm, with irregular atherosclerotic plaque elsewhere throughout the abdominal aorta. 5. Shotty retroperitoneal adenopathy is nonspecific but most frequently reactive. Arian Weston DIVISION SALES MANAGER CT ORDERABLES Final Resu lt * (ABNORMAL) ALLERGY PANEL, FOOD AND TREE NUTS W/COMP (10/16/2024 3:50 PM CDT) ALLERGEN EGG WHITE <0.10 kU/L [facility] ALLER[facility] EGG WHITE CLASS 0 [facility] ALLERGEN PEANUT <0.10 kU/L [facility] ALLERGEN PEANUT CLASS 0 [facility] WHEAT IGE <0.10 kU/L [facility] ALLERGEN WHEAT CLASS 0 [facility] WALNUT IGE <0.10 kU/L [facility] ALLERGEN WALNUT CLASS 0 [facility] ALLERGEN CODFISH <0.10 kU/L [facility] ALLERGEN CODFISH CLASS 0 [facility] ALLERGEN MILK 0.17(H) kU/L [facility] ALLERGEN MILK CLASS 0/1 [facility] SOYBEAN IGE <0.10 kU/L [facility] ALLERGEN SOYBEAN CLASS 0 [facility] SHRIMP IGE <0.10 kU/L [facility] ALLERGEN SHRIMP CLASS 0 [facility] SCALLOP IGE <0.10 kU/L [facility] ALLERGEN SCALLOP CLASS 0 [facility] SESAME SEED IGE <0.10 kU/L [facility] ALLERGEN SESAME SEED CLASS 0 [facility] ALLERGEN HAZELNUT <0.10 kU/L [facility] ALLERGEN HAZELNUT CLASS 0 [facility] ALLERGEN CASHEW NUT <0.10 kU/L [facility] ALLERGEN CASHEW NUT CLASS 0 [facility] ALLERGEN ALMOND <0.10 kU/L [facility] ALLERGEN ALMOND CLASS 0 [facility] SALMON IGE <0.10 kU/L [facility] ALLERGEN SALMON CLASS 0 [facility] TUNA IGE <0.10 kU/L [facility] ALLERGEN TUNA CLASS 0 [facility] ALLERGEN BRAZIL NUT <0.10 kU/L [facility] BRAZIL NUT % RESPONSE (CLASS) 0 [facility] ALLERGEN MACADAMIA <0.10 kU/L [facility] ALLERGEN MACADAMIA CLASS 0 [facility] ALPHA-LACTALBUMIN (F76) IGE <0.10 kU/L [facility] ALLERGEN ALPHA-LACTALBUMIN CLASS 0 [facility] ALLERGEN BETA-LACTOGLOB <0.10 kU/L [facility] ALLERGEN BETA-LACTOGLOB CLASS 0 [facility] ALLERGEN CASEIN <0.10 kU/L [facility] CASEIN % RESPONSE (CLASS) 0 [facility] Comment: IgE reactivity to whole milk without reactivity to Mac d 4, Mac d 5, or Mac d 8, may be explained by IgE reactivity to other cow's milk proteins or non-protein milk constituents. Additional information can be found at [email or web address] ALLERGY PANEL INTERP [facility] Comment: Specific Level of Allergen IGE Class kU/L Specific IGE Antibody ----- --------- 0 <0.10 Absent/Undetectable 0/1 0.10-0.34 Very Low Level 1 0.35-0.69 Low Level 2 0.70-3.49 Moderate Level 3 3.50-17.4 High Level 4 17.5-49.9 Very High Level 5 50-100 Very High Level 6 >100 Very High Level The clinical relevance of allergen results of 0.10-0.34 kU/L are undetermined and intended for specialist use. Allergens denoted with a include results using one or more analyte specific reagents. In those cases, the test was developed and its analytical performance characteristics have been determined by [facility]. It has not been cleared or approved by the U.S. Food and Drug Administration. This assay has been validated pursuant to the CLIA regulations and is used for clinical purposes. FASTING:UNKNOWN FASTING: UNKNOWN Test [facility]formed at: [facility] [address] [place] [address] Oriana Collier MD Blood 10/16/2024 3:50 PM CDT 10/16/2024 3:51 PM CDT Arian Weston [facility] CHEMISTRY ORDERABLES Final Result [facility] [phone] [facility] [address] [place] [address] * (ABNORMAL) ALPHA-GAL PANEL (10/16/2024 3:50 PM CDT) ALLERGEN BEEF 0.54(H) kU/L [facility], ALLERGEN BEEF (F27) CLASS 1 [facility], RODRIGUEZ (F88) IGE 0.48(H) kU/L [facility], ALLERGEN RODRIGUEZ (F88) CLASS 1 [facility], ALLERGEN PORK 0.29(H) kU/L [facility], ALLERGEN PORK (F26) CLASS 0/1 [facility], GALACTOSE - ALPHA -1, 3 - GALACTOSE, IGE 0.85(H) <0.10 kU/L [facility], Comment: Results above 0.1 kU/L indicate an allergen-specific IgE sensitization to svdpumrnd-u-3,3-galactose, and such patients are at risk for delayed allergic reactions following beef, pork, or rodriguez consumption. Circulating IgE antibodies may remain undetectable despite a convincing clinical history because these antibodies may be directed towards allergens revealed or altered during industrial processing, cooking, or digestion and therefore do not exist in the original food for which the patient is tested. Sometimes individuals diagnosed with chronic urticaria may develop IgE antibodies directed against human thyroglobulin. Such antibodies may cross-react with the bovine thyroglobulin used in ImmunoCAP(R) Allergen o215, alpha-Gal, leading to a false-positive test result. A definitive diagnosis should be based on the evaluation of both clinical and laboratory findings and not on any single diagnostic method. Additional information can be found at [email or web address] Test Performed at: [facility], [id number] [place] [phone] Devorah Rosario MD,PhD,[place] Blood 10/16/2024 3:50 PM CDT 10/16/2024 3:51 PM CDT Arian Weston [facility] CHEMISTRY ORDERABLES Final Result [facility] [phone] [facility], [address] [place] [address] * (ABNORMAL) CELIAC DISEASE ANTIBODIES (10/16/2024 3:50 PM CDT) CELIAC SEROLOGY INTER [facility] Comment: No serological evidence for celiac disease is present. tTg may normalize in individuals with celiac disease who maintain a gluten free diet. If high suspicion of celiac disease, consider HLA DQ2 and DQ8 testing to rule out celiac disease. TRANSGLUTAMINASE IGA AB <1.0 U/mL [facility] Comment: Value Interpretation ----- <15.0 Antibody not detected > or = 15.0 Antibody detected IGA 332(H) 70 - 320 mg/dL [facility] Comment: FASTING:UNKNOWN FASTING: UNKNOWN Test Performed at: [facility] [address] [place] [address] Tanner Elizondo Blood 10/16/2024 3:50 PM CDT 10/16/2024 3:51 PM CDT Arian Weston DIVISION SALES MANAGER CHEMISTRY ORDERABLES Final Result [facility] [phone] [facility] [address] [place] [address] * (ABNORMAL) CBC WITH DIFFERENTIAL (10/16/2024 3:50 PM CDT) Only the most recent of2 resultswithin the time period is included. WBC 8.5 3.8 - 10.8 Thousand/u L [facility] RBC 4.04(L) 4.20 - 5.80 Million/uL [facility] HEMOGLOBIN 13.3 13.2 - 17.1 g/dL [facility] HEMATOCRIT 40.4 38.5 - 50.0 % [facility] MCV 100.0 80.0 - 100.0 fL [facility] MCH 32.9 27.0 - 33.0 pg [facility] MCHC 32.9 32.0 - 36.0 g/dL [facility] Comment: For adults, a slight decrease in the calculated MCHC value (in the range of 30 to 32 g/dL) is most likely not clinically significant; however, it should be interpreted with caution in correlation with other red cell parameters and the patient's clinical condition. RDW 13.7 11.0 - 15.0 % [facility] PLATELETS 247 140 - 400 Thousand/u L [facility] MPV 9.7 7.5 - 12.5 fL [facility] NEUTROPHIL ABSOLUTE 6,069 1,500 - 7,800 cells/uL [facility] LYMPHOCYTE ABSOLUTE 1,734 850 - 3,900 cells/uL [facility] MONOCYTE ABSOLUTE 578 200 - 950 cells/uL [facility] EOSINOPHIL ABSOLUTE 68 15 - 500 cells/uL [facility] BASOPHILS ABSOLUTE 51 0 - 200 cells/uL [facility] NEUTROPHIL 71.4 % [facility] LYMPHOCYTES 20.4 % [facility] MONOCYTE 6.8 % [facility] EOSINOPHILS 0.8 % [facility] BASOPHILS 0.6 % [facility] Comment: FASTING:UNKNOWN FASTING: UNKNOWN Test Performed at: [facility] [address] Oriana Collier MD Blood 10/16/2024 3:50 PM CDT 10/16/2024 3:51 PM CDT [facility] HEMATOLOGY ORDERABLES Zaida l Result Performing Organization Address City/[facility]/ZIP Co de Phone Number [facility] [phone] [facility] [address] [place] [phone] * (ABNORMAL) LIPASE (10/16/2024 3:50 PM CDT) Pathologist [facility] LIPASE 304(H) 7 - 60 U/L [facility] Comment: Verified by repeat analysis. FASTING:UNKNOWN FASTING: UNKNOWN Test Performed at: [facility] [address] Oriana Collier MD Blood 10/16/2024 3:50 PM CDT 10/16/2024 3:51 PM CDT Arian Weston [facility] CHEMISTRY ORDERABLES Final Result Performing Organization Address [facility] Co de Phone Number [facility] [phone] [facility] [address] [place] [phone] * COMPREHENSIVE METABOLIC PANEL (10/16/2024 3:50 PM CDT) Only the most recent of2 resultswithin the time period is included. GLUCOSE 77 65 - 99 mg/dL [facility] Comment: Fasting reference interval BUN 13 7 - 25 mg/dL [facility] CREATININE 1.27 0.70 - 1.35 mg/dL [facility] GFR 62 > OR = 60 mL/min/1. 73m2 [facility] BUN/CREAT RATIO SEE NOTE: 6 - 22 (calc) [facility] Comment: Not Reported: BUN and Creatinine are within reference range. SODIUM 136 135 - 146 mmol/L [facility] POTASSIUM 3.8 3.5 - 5.3 mmol/L [facility] CHLORIDE 100 98 - 110 mmol/L [facility] CO2 30 20 - 32 mmol/L [facility] CALCIUM 8.8 8.6 - 10.3 mg/dL [facility] TOTAL PROTEIN 6.8 6.1 - 8.1 g/dL [facility] ALBUMIN 3.6 3.6 - 5.1 g/dL [facility] GLOBULIN 3.2 1.9 - 3.7 g/dL (calc) [facility] ALBUMIN/GLOBULIN RATIO 1.1 1.0 - 2.5 (calc) [facility] BILIRUBIN TOTAL 0.4 0.2 - 1.2 mg/dL [facility] ALKALINE PHOSPHATASE 70 35 - 144 U/L [facility] AST 14 10 - 35 U/L [facility] ALT 13 9 - 46 U/L [facility] Comment: Test Performed at: [facility] [address] Oriana Collier MD Blood 10/16/2024 3:50 PM CDT 10/16/2024 3:51 PM CDT Arian Weston DIVISION SALES MANAGER CHEMISTRY ORDERABLES Final Result [facility] [phone] [facility] [address] [facility] [place] [address] * QUEST TEST IN QUESTION (ACTION NEEDED) (NO MY CHART) (09/30/2024 12:55 PM CDT) REPORT/SPECIMEN COMMENT [facility] Comment: Whole blood, unspun or partially spun gel barrier tube was received more than 6 hours since collection. A false elevation of K, Phos and LD as well as a false decrease in glucose may occur due to prolonged contact with red cells. Test Performed at: [facility] [address] Oriana Collier MD 09/30/2024 12:5 5 PM CDT 10/01/2024 5:14 AM CDT Sierra L Maricel DO CHEMISTRY ORDERABLES Final Result Performing Organization Address City/[facility]/ZIP Co de Phone Number [facility] [phone] [facility] [address] * URIC ACID (09/30/2024 12:55 PM CDT) URIC ACID 7.3 4.0 - 8.0 mg/dL [facility] Comment: Therapeutic target for gout patients: <6.0 mg/dL Test Performed at: [facility] [address] Oriana Collier MD Blood 09/30/2024 12:5 5 PM CDT 10/01/2024 5:14 AM CDT Sierra Jag MonacoMaricel DO CHEMISTRY ORDERABLES Final Result Performing Organization Address City/[facility]/ZIP Co de Phone Number [facility] [phone] [facility] [address] * TSH (09/30/2024 12:55 PM CDT) TSH 2.24 0.40 - 4.50 mIU/L [facility] Comment: Test Performed at: [facility] [address] Oriana Collier MD Blood 09/30/2024 12:5 5 PM CDT 10/01/2024 5:14 AM CDT us Sierra Jag Interianoan DO CHEMISTRY ORDERABLES Final Result Performing Organization Address City/[facility]/ZIP Co de Phone Number [facility] [phone] [facility] [address] [address] * (ABNORMAL) LIPID PANEL (09/30/2024 12:55 PM CDT) CHOLESTEROL 172 <200 mg/dL [facility] HDL 46 > OR = 40 mg/dL [facility] TRIGLYCERIDE 104 <150 mg/dL [facility] LDL CALCULATED 106(H) mg/dL (calc) [facility] Comment: Reference range: <100 Desirable range <100 mg/dL for primary prevention; <70 mg/dL for patients with CHD or diabetic patients with > or = 2 CHD risk factors. LDL-C is now calculated using the Satish calculation, which is a validated novel method providing better accuracy than the Friedewald equation in the estimation of LDL-C. John MCLEOD et al. HIRA. 2013;310(19): 5281-5214 (http://education.[employer]/faq/VCD068) CHOL/HDL RATIO 3.7 <5.0 (calc) [facility] NON-HDL CHOLESTEROL 126 <130 mg/dL (calc) [facility] Comment: For patients with diabetes plus 1 major ASCVD risk factor, treating to a non-HDL-C goal of <100 mg/dL (LDL-C of <70 mg/dL) is considered a therapeutic option. Test Performed at: [facility] [address] [facility] [address] Oriana Collier MD Blood 09/30/2024 12:5 5 PM CDT 10/01/2024 5:14 AM CDT us Sierra Jag Maricel DO CHEMISTRY ORDERABLES Final Result [facility] [phone] [facility] [address] [place] [phone] * (ABNORMAL) VITAMIN B12 LEVEL (09/30/2024 12:00 AM CDT) VITAMIN B12 >2000(H) 200 - 1100 pg/mL [facility] Comment: Test Performed at: [address] [address] Oriana Collier MD Blood 09/30/2024 10/02/2024 10: 49 AM CDT Sierra Connelly DO CHEMISTRY ORDERABLES Final Result [facility] [phone] [address] * ECHO COMPLETE - CONTRAST AND STRAIN IF INDICATED (09/29/2024 2:35 PM CDT) EJECTION FRACTION 61 INTERFACE SYSTEM 09/29/2024 2:13 PM CDT Narrative INTERFACE SYSTEM - 09/29/2024 5:01 PM CDT [facility] Radiology Services - Echocardiology [address] [place] [address] Transthoracic Echocardiography Patient: James Alvarado Study ID: [id number] Gender: M : 1955 Age: 68 Room: [facility] Study Date: 09/29/2024 Pt Status: Study Time: 02:13:23 PM CSN #: [id number] Ordering:Khris Gutierrez [employer]: Long, Ani Indications and History: Bilateral carotid artery stenosis [I65.23 (ICD-10-CM)]; PAD (peripheral artery disease) [I73.9 (ICD-10-CM)]; Overweight (BMI 25.0-29.9) [E66.3 (ICD-10-CM)]; Chronic combined systolic and diastolic CHF (congestive heart failure) ([facility]) [I50.42 (ICD-10-CM)]; Statin intolerance [Z78.9 (ICD-10-CM)] Summary and Conclusion: - Left ventricle: The cavity size is normal. Wall thickness is normal. Global systolic function is normal. The estimated ejection fraction is 55-60%. For Epic reporting: the left ventricular ejection fraction is 61% by biplane method of disks. No diagnostic regional wall motion abnormality identified. Interventricular septum shows abnormal bouncy motion. Diastolic function is indeterminate. Myocardial performance and contractility assessed using 2D global longitudinal strain imaging. The global longitudinal strain is -22% (Normal range is -18 to -25). - Right ventricle: The cavity size is normal. Systolic function is normal. Systolic pressure is mildly increased. The estimated peak pressure is 41mm Hg. - Aortic valve: The valve is trileaflet. The leaflets are thickened. Comparison: Compared to the previous study, LV systolic functionhas improved. Prior Study Date: 06/07/2020. Procedure information: Study status: Routine. Procedure: A transthoracic echocardiogram was performed. Image quality was suboptimal. Scanning was performed from the parasternal, apical, subcostal, and suprasternal notch acoustic windows. Study components: M-mode, 2D, complete spectral Doppler, and color Doppler. Height: 177.8cm. Height: 70in. Weight: 86.3kg. Weight: 190.3lb. BMI: 27.3kg/m^2. BSA: 2.08m^2. Study date: 09/29/2024. Study time: 02:13 PM. Cardiac Anatomy: LEFT VENTRICLE: The cavity size is normal. Wall thickness is normal. Global systolic function is normal. The estimated ejection fraction is 55-60%. For Epic reporting: the left ventricular ejection fraction is 61% by biplane method of disks. No diagnostic regional wall motion abnormality identified. Interventricular septum shows abnormal bouncy motion. Myocardial performance and contractility assessed using 2D global longitudinal strain imaging. The global longitudinal strain is -22% (Normal range is -18 to -25). Diastolic function is indeterminate. RIGHT VENTRICLE: The cavity size is normal. Systolic function is normal. Systolic pressure is mildly increased. The estimated peak pressure is 41mm Hg. LEFT ATRIUM: The atrium is normal in size. RIGHT ATRIUM: The atrium is normal in size. ATRIAL SEPTUM: No obvious PFO or ASD identified by 2D imaging and color Doppler. AORTIC VALVE: The valve is trileaflet. The leaflets are thickened. Mobility is not restricted. There is no stenosis. There is no significant regurgitation. MITRAL VALVE: Structurally normal valve. Mobility is not restricted. No evidence for prolapse. There is no evidence for stenosis. There is no significant regurgitation. TRICUSPID VALVE: Structurally normal valve. Mobility is unrestricted. There is no evidence for stenosis. There is no significant regurgitation. PULMONIC VALVE: Not well visualized. The valve appears to be grossly normal. There is no evidence for stenosis. There is no significant regurgitation. PERICARDIUM: There is no pericardial effusion. AORTA: Aortic root: The root is not dilated. Aortic arch: The vessel is not dilated. INTRACARDIAC MASS THROMBUS: No apparent intracavitary masses or thrombi detected. Measurements Left ventricle Value Aortic valve Value FS, LAX 33 % Peak v, S 124 cm/sec FS 33 % Mean v, S 76 cm/sec EDV 96 ml VTI, S 22.2 cm ESV 37 ml Mean grad, S 3 mm Hg EF 61 % EDV/bsa 46 ml/m^2 Mitral valve Value ESV/bsa 18 ml/m^2 Peak E/A ratio 1.2 EF, 1-p A2C 61 % EF, 1-p A4C 59 % Tricuspid valve Value EDV, 2-p 124 ml TR peak v 308 cm/sec ESV, 2-p 48 ml Peak RV-RA grad, S 38 mm Hg EF, 2-p 61 % EDV/bsa, 2-p 60 ml/m^2 Descending aorta Value ESV/bsa, 2-p 23 ml/m^2 Prox Melisa diam 1.5 cm EDV, MM Teich. 96 ml EF, MM Teich. 61 % Inferior vena cava Value EDV/bsa, MM Teich. 46 ml/m^2 Prox diam, exp 1.5 cm EF, MM on 2D Teich. 61 % E/e', lat raven, TDI 6 Other Value E/e', med raven, TDI 6 E/e', avg, TDI 6 Left atrium Value Vol, S 48 ml Vol/bsa, S 23 ml/m^2 Legend: (L) and (H) johnnie values outside specified reference range. Prepared and Electronically Authenticated Ezio Ng Confirmed 09/29/2024 17:01 Procedure Note Ezio Ng MD - 09/29/2024 [facility] Radiology Services - Echocardiology [address] [facility] [address] [place] [address] Transthoracic Echocardiography Patient: James Alvarado Study ID:[id number] Gender: M : 1955 Age: 68 Room: [facility] Study Date: 09/29/2024 Pt Status: Study Time: 02:13:23 PM CSN #: [id number] Ordering:Khris Gutierrez [employer]: Ani Chowdhury Indications and History: Bilateral carotid artery stenosis [I65.23 (ICD-10-CM)]; PAD (peripheral artery disease) [I73.9 (ICD-10-CM)];Overweight (BMI 25.0-29.9) [E66.3 (ICD-10-CM)]; Chronic combined systolic anddiastolic CHF (congestive heart failure) (CMS/HCC) [I50.42 (ICD-10-CM)]; Statin intolerance [Z78.9 (ICD-10-CM)] Summary and Conclusion: - Left ventricle: The cavity size is normal. Wall thickness is normal.Global systolic function is normal. The estimated ejection fraction is 55-60%.For Epic reporting: the left ventricular ejection fraction is 61% bybiplane method of disks. No diagnostic regional wall motion abnormalityidentified. Interventricular septum shows abnormal bouncy motion. Diastolic functionis indeterminate. Myocardial performance and contractility assessed [id number] global longitudinal strain imaging. The global longitudinal strain is-22% (Normal range is -18 to -25). - Right ventricle: The cavity size is normal. Systolic function isnormal. Systolic pressure is mildly increased. The estimated peak pressure is41mm Hg. - Aortic valve: The valve is trileaflet. The leaflets are thickened. Comparison: Compared to the previous study, LV systolic functionhasimproved. Prior Study Date: 06/07/2020. Procedure information: Study status: Routine. Procedure: Atransthoracic echocardiogram was performed. Image quality was suboptimal. Scanning was performed from the parasternal, apical, subcostal, and suprasternalnotch acoustic windows. Study components: M-mode, 2D, completespectral Doppler, and color Doppler. Height: 177.8cm. Height: 70in. Weight: 86.3kg. Weight: 190.3lb. BMI: 27.3kg/m^2. BSA: 2.08m^2. Studydate: 09/29/2024. Study time: 02:13 PM. Cardiac Anatomy: LEFT VENTRICLE: The cavity size is normal. Wall thickness is normal.Global systolic function is normal. The estimated ejection fraction is 55-60%.For Epic reporting: the left ventricular ejection fraction is 61% by biplane method of disks. No diagnostic regional wall motion abnormalityidentified. Interventricular septum shows abnormal bouncy motion. Myocardialperformance and contractility assessed using 2D global longitudinal strain imaging.The global longitudinal strain is -22% (Normal range is -18 to -25).Diastolic function is indeterminate. RIGHT VENTRICLE: The cavity size is normal. Systolic function isnormal. Systolic pressure is mildly increased. The estimated peak pressure is 41mmHg. LEFT ATRIUM: The atrium is normal in size. RIGHT ATRIUM: The atrium is normal in size. ATRIAL SEPTUM: No obvious PFO or ASD identified by 2D imaging and color Doppler. AORTIC VALVE: The valve is trileaflet. The leaflets are thickened.Mobility is not restricted. There is no stenosis. There is no significant regurgitation. MITRAL VALVE: Structurally normal valve. Mobility is not restricted.No evidence for prolapse. There is no evidence for stenosis. There is no significant regurgitation. TRICUSPID VALVE: Structurally normal valve. Mobility isunrestricted. There is no evidence for stenosis. There is no significantregurgitation. PULMONIC VALVE: Not well visualized. The valve appears to be grosslynormal. There is no evidence for stenosis. There is no significantregurgitation. PERICARDIUM: There is no pericardial effusion. AORTA: Aortic root: The root is not dilated. Aortic arch: The vessel is not dilated. INTRACARDIAC MASS THROMBUS: No apparent intracavitary masses or thrombi detected. Measurements Left ventricle Value Aortic valve Value FS, LAX 33 % Peak v, S 124 cm/sec FS 33 % Mean v, S 76 cm/sec EDV 96 ml VTI, S 22.2 cm ESV 37 ml Mean grad, S 3 mm Hg EF 61 % EDV/bsa 46 ml/m^2 Mitral valve Value ESV/bsa 18 ml/m^2 Peak E/A ratio 1.2 EF, 1-p A2C 61 % EF, 1-p A4C 59 % Tricuspid valve Value EDV, 2-p 124 ml TR peak v 308 cm/sec ESV, 2-p 48 ml Peak RV-RA grad, S 38 mm Hg EF, 2-p 61 % EDV/bsa, 2-p 60 ml/m^2 Descending aorta Value ESV/bsa, 2-p 23 ml/m^2 Prox Melisa diam 1.5 cm EDV, MM Teich. 96 ml EF, MM Teich. 61 % Inferior vena cava Value EDV/bsa, MM Teich. 46 ml/m^2 Prox diam, exp 1.5 cm EF, MM on 2D Teich. 61 % E/e', lat raven, TDI 6 Other Value E/e', med raven, TDI 6 E/e', avg, TDI 6 Left atrium Value Vol, S 48 ml Vol/bsa, S 23 ml/m^2 Legend: (L) and (H) johnnie values outside specified reference range. Prepared and Electronically Authenticated Ezio Ng Confirmed 09/29/2024 17:01 us Khris Gutierrez MD ORDERABLES Final Result INTERFACE SYSTEM Refer to clinic/hospital department * CT CHEST W CONTRAST (09/01/2024 2:17 PM CDT) Anatomical Region Laterality Modality Chest Computed Tomogra phy 09/01/2024 1:58 PM CDT Impressions 09/01/2024 2:40 PM CDT IMPRESSION: 1. Small stellate soft tissue mass in the right lung consistent with the given history of known malignancy. 2. COPD and emphysema. 3. No appreciable change since the prior study. Narrative 09/01/2024 2:40 PM CDT Exam: CT CHEST W CONTRAST Date/Time of Exam: 09/01/2024 2:17 PM Reason For Exam: lung cancer. Axial images were obtained through the chest. Sagittal and coronal reformatted images are included. 100 mL of Isovue-300 was given previously. A 1.2 cm stellate soft tissue mass is again seen anterolaterally in the right midlung, consistent with given history of known malignancy. This is unchanged in size and appearance since the prior study. Hyperinflation and emphysematous changes are again noted. No new or developing pulmonary opacities are seen. There is no evidence of any pleural effusion or other abnormal fluid collections. There is no evidence of any thoracic aortic aneurysm or dissection. No pneumothorax is seen. No lytic or blastic bony lesions are seen. Procedure Note Hussein Mora MD - 09/01/2024 Exam: CT CHEST W CONTRAST Date/Time of Exam: 09/01/2024 2:17 PM Reason For Exam: lung cancer. Axial images were obtained through the chest. Sagittal and coronal reformatted images are included. 100 mL of Isovue-300 was given previously. A 1.2 cm stellate soft tissue mass is again seen anterolaterally in the right midlung, consistent with given history of known malignancy. This is unchanged in size and appearance since the prior study. Hyperinflation and emphysematous changes are again noted. No new or developing pulmonary opacities are seen. There is no evidence of any pleural effusion or other abnormal fluid collections. There is no evidence of any thoracic aortic aneurysm or dissection. No pneumothorax is seen. No lytic or blastic bony lesions are seen. IMPRESSION: 1. Small stellate soft tissue mass in the right lung consistent with the given history of known malignancy. 2. COPD and emphysema. 3. No appreciable change since the prior study. us Caroline Delgado MD CT ORDERABLES Final Resul t * PET HEART PERF R&S W CT MULTI (08/25/2024 2:30 PM CDT) 08/25/2024 2:30 PM CDT Impressions INTERFACE SYSTEM - 08/26/2024 1:55 PM CDT Impression: 1. Myocardial perfusion part of imaging appears abnormal. Trivial to mild ischemia of small size in the apical inferior/lateral segments. No obvious fixed defect is noted to suggest transmural myocardial injury. 2. Normal myocardial blood flow reserve (MBFR). Recommend clinical correlation. 3. Left ventricular ejection fraction (LVEF) at rest is 61%. LVEF 71% at peak stress. Transient ischemic dilatation absent. 4. Aortic atherosclerosis visualized. Coronary artery calcium scan shows total calcium score of 1786. 5. Stress EKGs demonstrate no significant ischemia No prior study available for direct comparison. Khris Gutierrez MD, [facility] Narrative INTERFACE SYSTEM - 08/26/2024 1:55 PM CDT REST-STRESS REGADENOSON RUBIDIUM-92 PET/CT MYOCARDIAL PERFUSION IMAGING Clinical Indication: Chest pain. History: I have reviewed patient's history. Procedure: A CT scan was required for attenuation correction of the rest images. This was followed by infusion of 29.6 mCi of rubidium Rb-82, after which rest images were acquired. Following rest imaging, a total of 0.4 mg was injected intravenously over 10 seconds followed by a 5 ml normal saline flush. At 2 minutes, 29.8 mCi of rubidium Rb-92 was infused. Peak stress images acquired, starting 30 seconds after the beginning of the infusion of Rb-92. A CT scan was acquired for attention correction of the stress images. A coronary calcium score as required with 3 mm thick slices using a 3 mm slice of slice step. Calcium score protocol: high resolution, ECG synchronized completed tomography of the heart and corner artist was performed using a multi detector computer tomography MDCT scanner. Eight slices acquired was three minute using a three slices to slice. I personally reviewed the resting and peak (during stress) heart rate and BP and the response was appropriate during the stress procedure. I personally reviewed the resting and stress electrocardiograms. Resting EKG rhythm was sinus. Clinical response: Non-diagnostic (Regadenoson). Scintigraphic Findings: The overall quality of the study is good. Tomographic images demonstrate trivial to mildly reduced tracer uptake of small size in the apical lateral/inferior segments during stress. The gated tomograms: I assessed wall motion and thickening in all areas. Myocardial blood flow reserve: Stress flow MBFR LAD 1.38 2.50 LCX 1.25 2.19 RCA 1.31 2.34 Global 1.31 2.36 Global rest flow: 0.55 Coronary artery calcium score: The total Agatston score is indicated below. This is a limited CT scan of the chest for evaluation of the coronary artery calcification only and is not intended for any other purpose. Procedure Note Khris Gutierrez MD - 08/26/2024 REST-STRESS REGADENOSON RUBIDIUM-92 PET/CT MYOCARDIAL PERFUSION IMAGING Clinical Indication: Chest pain. History: I have reviewed patient's history. Procedure: A CT scan was required for attenuation correction of the rest images. This was followed by infusion of 29.6 mCi of rubidium Rb-82, after which rest images were acquired. Following rest imaging, a total of 0.4 mg was injected intravenously over 10 seconds followed by a 5 ml normal saline flush. At 2 minutes, 29.8 mCi of rubidium Rb-92 was infused. Peak stress images acquired, starting 30 seconds after the beginning of the infusion of Rb-92. A CT scan was acquired for attention correction of the stress images. A coronary calcium score as required with 3 mm thick slices using a 3 mm slice of slice step. Calcium score protocol: high resolution, ECG synchronized completed tomography of the heart and corner artist was performed using a multi detector computer tomography MDCT scanner. Eight slices acquired was three minute using a three slices to slice. I personally reviewed the resting and peak (during stress) heart rate and BP and the response was appropriate during the stress procedure. I personally reviewed the resting and stress electrocardiograms. Resting EKG rhythm was sinus. Clinical response: Non-diagnostic (Regadenoson). Scintigraphic Findings: The overall quality of the study is good. Tomographic images demonstrate trivial to mildly reduced tracer uptake of small size in the apical lateral/inferior segments during stress. The gated tomograms: I assessed wall motion and thickening in all areas. Myocardial blood flow reserve: Stress flow MBFR LAD 1.38 2.50 LCX 1.25 2.19 RCA 1.31 2.34 Global 1.31 2.36 Global rest flow: 0.55 Coronary artery calcium score: The total Agatston score is indicated below. This is a limited CT scan of the chest for evaluation of the coronary artery calcification only and is not intended for any other purpose. Impression: 1. Myocardial perfusion part of imaging appears abnormal. Trivial to mild ischemia of small size in the apical inferior/lateral segments. No obvious fixed defect is noted to suggest transmural myocardial injury. 2. Normal myocardial blood flow reserve (MBFR). Recommend clinical correlation. 3. Left ventricular ejection fraction (LVEF) at rest is 61%. LVEF 71% at peak stress. Transient ischemic dilatation absent. 4. Aortic atherosclerosis visualized. Coronary artery calcium scan shows total calcium score of 1786. 5. Stress EKGs demonstrate no significant ischemia No prior study available for direct comparison. Khris Gutierrez MD, [facility] us Khris Gutierrez MD PE ORDERABLES Final Result INTERFACE SYSTEM Refer to clinic/hospital department * NM PHARMACOLOGICAL STRESS TEST (08/25/2024 1:59 PM CDT) 08/25/2024 1:59 PM CDT Impressions INTERFACE SYSTEM - 08/26/2024 1:55 PM CDT Impression: 1. Myocardial perfusion part of imaging appears abnormal. Trivial to mild ischemia of small size in the apical inferior/lateral segments. No obvious fixed defect is noted to suggest transmural myocardial injury. 2. Normal myocardial blood flow reserve (MBFR). Recommend clinical correlation. 3. Left ventricular ejection fraction (LVEF) at rest is 61%. LVEF 71% at peak stress. Transient ischemic dilatation absent. 4. Aortic atherosclerosis visualized. Coronary artery calcium scan shows total calcium score of 1786. 5. Stress EKGs demonstrate no significant ischemia No prior study available for direct comparison. Khris Gutierrez MD, [facility] Narrative INTERFACE SYSTEM - 08/26/2024 1:55 PM CDT REST-STRESS REGADENOSON RUBIDIUM-92 PET/CT MYOCARDIAL PERFUSION IMAGING Clinical Indication: Chest pain. History: I have reviewed patient's history. Procedure: A CT scan was required for attenuation correction of the rest images. This was followed by infusion of 29.6 mCi of rubidium Rb-82, after which rest images were acquired. Following rest imaging, a total of 0.4 mg was injected intravenously over 10 seconds followed by a 5 ml normal saline flush. At 2 minutes, 29.8 mCi of rubidium Rb-92 was infused. Peak stress images acquired, starting 30 seconds after the beginning of the infusion of Rb-92. A CT scan was acquired for attention correction of the stress images. A coronary calcium score as required with 3 mm thick slices using a 3 mm slice of slice step. Calcium score protocol: high resolution, ECG synchronized completed tomography of the heart and corner artist was performed using a multi detector computer tomography MDCT scanner. Eight slices acquired was three minute using a three slices to slice. I personally reviewed the resting and peak (during stress) heart rate and BP and the response was appropriate during the stress procedure. I personally reviewed the resting and stress electrocardiograms. Resting EKG rhythm was sinus. Clinical response: Non-diagnostic (Regadenoson). Scintigraphic Findings: The overall quality of the study is good. Tomographic images demonstrate trivial to mildly reduced tracer uptake of small size in the apical lateral/inferior segments during stress. The gated tomograms: I assessed wall motion and thickening in all areas. Myocardial blood flow reserve: Stress flow MBFR LAD 1.38 2.50 LCX 1.25 2.19 RCA 1.31 2.34 Global 1.31 2.36 Global rest flow: 0.55 Coronary artery calcium score: The total Agatston score is indicated below. This is a limited CT scan of the chest for evaluation of the coronary artery calcification only and is not intended for any other purpose. Procedure Note Khris Gutierrez MD - 08/26/2024 REST-STRESS REGADENOSON RUBIDIUM-92 PET/CT MYOCARDIAL PERFUSION IMAGING Clinical Indication: Chest pain. History: I have reviewed patient's history. Procedure: A CT scan was required for attenuation correction of the rest images. This was followed by infusion of 29.6 mCi of rubidium Rb-82, after which rest images were acquired. Following rest imaging, a total of 0.4 mg was injected intravenously over 10 seconds followed by a 5 ml normal saline flush. At 2 minutes, 29.8 mCi of rubidium Rb-92 was infused. Peak stress images acquired, starting 30 seconds after the beginning of the infusion of Rb-92. A CT scan was acquired for attention correction of the stress images. A coronary calcium score as required with 3 mm thick slices using a 3 mm slice of slice step. Calcium score protocol: high resolution, ECG synchronized completed tomography of the heart and corner artist was performed using a multi detector computer tomography MDCT scanner. Eight slices acquired was three minute using a three slices to slice. I personally reviewed the resting and peak (during stress) heart rate and BP and the response was appropriate during the stress procedure. I personally reviewed the resting and stress electrocardiograms. Resting EKG rhythm was sinus. Clinical response: Non-diagnostic (Regadenoson). Scintigraphic Findings: The overall quality of the study is good. Tomographic images demonstrate trivial to mildly reduced tracer uptake of small size in the apical lateral/inferior segments during stress. The gated tomograms: I assessed wall motion and thickening in all areas. Myocardial blood flow reserve: Stress flow MBFR LAD 1.38 2.50 LCX 1.25 2.19 RCA 1.31 2.34 Global 1.31 2.36 Global rest flow: 0.55 Coronary artery calcium score: The total Agatston score is indicated below. This is a limited CT scan of the chest for evaluation of the coronary artery calcification only and is not intended for any other purpose. Impression: 1. Myocardial perfusion part of imaging appears abnormal. Trivial to mild ischemia of small size in the apical inferior/lateral segments. No obvious fixed defect is noted to suggest transmural myocardial injury. 2. Normal myocardial blood flow reserve (MBFR). Recommend clinical correlation. 3. Left ventricular ejection fraction (LVEF) at rest is 61%. LVEF 71% at peak stress. Transient ischemic dilatation absent. 4. Aortic atherosclerosis visualized. Coronary artery calcium scan shows total calcium score of 1786. 5. Stress EKGs demonstrate no significant ischemia No prior study available for direct comparison. Khris Gutierrez MD, [facility] Khris Gutierrez MD [place] ORDERABLES Final Result INTERFACE SYSTEM Refer to clinic/hospital department * CT CORONARY CALCIUM SCORE (08/25/2024 1:49 PM CDT) 08/25/2024 1:49 PM CDT Impressions INTERFACE SYSTEM - 08/26/2024 1:55 PM CDT Impression: 1. Myocardial perfusion part of imaging appears abnormal. Trivial to mild ischemia of small size in the apical inferior/lateral segments. No obvious fixed defect is noted to suggest transmural myocardial injury. 2. Normal myocardial blood flow reserve (MBFR). Recommend clinical correlation. 3. Left ventricular ejection fraction (LVEF) at rest is 61%. LVEF 71% at peak stress. Transient ischemic dilatation absent. 4. Aortic atherosclerosis visualized. Coronary artery calcium scan shows total calcium score of 1786. 5. Stress EKGs demonstrate no significant ischemia No prior study available for direct comparison. Khris Gutierrez MD, [facility] Narrative INTERFACE SYSTEM - 08/26/2024 1:55 PM CDT REST-STRESS REGADENOSON RUBIDIUM-92 PET/CT MYOCARDIAL PERFUSION IMAGING Clinical Indication: Chest pain. History: I have reviewed patient's history. Procedure: A CT scan was required for attenuation correction of the rest images. This was followed by infusion of 29.6 mCi of rubidium Rb-82, after which rest images were acquired. Following rest imaging, a total of 0.4 mg was injected intravenously over 10 seconds followed by a 5 ml normal saline flush. At 2 minutes, 29.8 mCi of rubidium Rb-92 was infused. Peak stress images acquired, starting 30 seconds after the beginning of the infusion of Rb-92. A CT scan was acquired for attention correction of the stress images. A coronary calcium score as required with 3 mm thick slices using a 3 mm slice of slice step. Calcium score protocol: high resolution, ECG synchronized completed tomography of the heart and corner artist was performed using a multi detector computer tomography MDCT scanner. Eight slices acquired was three minute using a three slices to slice. I personally reviewed the resting and peak (during stress) heart rate and BP and the response was appropriate during the stress procedure. I personally reviewed the resting and stress electrocardiograms. Resting EKG rhythm was sinus. Clinical response: Non-diagnostic (Regadenoson). Scintigraphic Findings: The overall quality of the study is good. Tomographic images demonstrate trivial to mildly reduced tracer uptake of small size in the apical lateral/inferior segments during stress. The gated tomograms: I assessed wall motion and thickening in all areas. Myocardial blood flow reserve: Stress flow MBFR LAD 1.38 2.50 LCX 1.25 2.19 RCA 1.31 2.34 Global 1.31 2.36 Global rest flow: 0.55 Coronary artery calcium score: The total Agatston score is indicated below. This is a limited CT scan of the chest for evaluation of the coronary artery calcification only and is not intended for any other purpose. Procedure Note Khris Gutierrez MD - 08/26/2024 REST-STRESS REGADENOSON RUBIDIUM-92 PET/CT MYOCARDIAL PERFUSION IMAGING Clinical Indication: Chest pain. History: I have reviewed patient's history. Procedure: A CT scan was required for attenuation correction of the rest images. This was followed by infusion of 29.6 mCi of rubidium Rb-82, after which rest images were acquired. Following rest imaging, a total of 0.4 mg was injected intravenously over 10 seconds followed by a 5 ml normal saline flush. At 2 minutes, 29.8 mCi of rubidium Rb-92 was infused. Peak stress images acquired, starting 30 seconds after the beginning of the infusion of Rb-92. A CT scan was acquired for attention correction of the stress images. A coronary calcium score as required with 3 mm thick slices using a 3 mm slice of slice step. Calcium score protocol: high resolution, ECG synchronized completed tomography of the heart and corner artist was performed using a multi detector computer tomography MDCT scanner. Eight slices acquired was three minute using a three slices to slice. I personally reviewed the resting and peak (during stress) heart rate and BP and the response was appropriate during the stress procedure. I personally reviewed the resting and stress electrocardiograms. Resting EKG rhythm was sinus. Clinical response: Non-diagnostic (Regadenoson). Scintigraphic Findings: The overall quality of the study is good. Tomographic images demonstrate trivial to mildly reduced tracer uptake of small size in the apical lateral/inferior segments during stress. The gated tomograms: I assessed wall motion and thickening in all areas. Myocardial blood flow reserve: Stress flow MBFR LAD 1.38 2.50 LCX 1.25 2.19 RCA 1.31 2.34 Global 1.31 2.36 Global rest flow: 0.55 Coronary artery calcium score: The total Agatston score is indicated below. This is a limited CT scan of the chest for evaluation of the coronary artery calcification only and is not intended for any other purpose. Impression: 1. Myocardial perfusion part of imaging appears abnormal. Trivial to mild ischemia of small size in the apical inferior/lateral segments. No obvious fixed defect is noted to suggest transmural myocardial injury. 2. Normal myocardial blood flow reserve (MBFR). Recommend clinical correlation. 3. Left ventricular ejection fraction (LVEF) at rest is 61%. LVEF 71% at peak stress. Transient ischemic dilatation absent. 4. Aortic atherosclerosis visualized. Coronary artery calcium scan shows total calcium score of 1786. 5. Stress EKGs demonstrate no significant ischemia No prior study available for direct comparison. Khris Gutierrez MD, [facility] Khris Gutierrez MD CT ORDERABLES Final Result INTERFACE SYSTEM Refer to clinic/hospital department * CT CARDIAC CHEST INTERPRETATION (08/25/2024 1:48 PM CDT) Anatomical Region Laterality Modality Chest Nuclear Medicine 08/25/2024 1:48 PM CDT Impressions 08/25/2024 2:19 PM CDT IMPRESSION: Please see below. Exam: CT CARDIAC CHEST INTERPRETATION Date/Time of Exam: 08/25/2024 1:48 PM Reason For Exam: See Diagnosis. Diagnosis: Chest pain in adult. Technique: This report serves as an over read of the extracardiac/extravascular structures in the visualized portions of the chest. Please refer to the concurrent cardiology report for assessment of the cardiac structures and great vessels of the chest. Findings: Imaged extracardiac regions of thorax and upper abdomen: 1.5 x 1.2 cm spiculated nodule within right upper lobe anteriorly, previously 1.9 x 1.4 cm. Emphysematous change. Narrative Procedure Note Cammie Weston MD - 08/25/2024 IMPRESSION: Please see below. Exam: CT CARDIAC CHEST INTERPRETATION Date/Time of Exam: 08/25/2024 1:48 PM Reason For Exam: See Diagnosis. Diagnosis: Chest pain in adult. Technique: This report serves as an over read of the extracardiac/extravascular structures in the visualized portions of the chest. Please refer to the concurrent cardiology report for assessment of the cardiac structures and great vessels of the chest. Findings: Imaged extracardiac regions of thorax and upper abdomen: 1.5 x 1.2 cm spiculated nodule within right upper lobe anteriorly, previously 1.9 x 1.4 cm. Emphysematous change. Khris Gutierrez MD CT ORDERABLES Final Result from Last 3 Months Insurance [facility] MEDIC[facility] HMO Advance Directives For more information, please contact: [phone] * Full Code (Latest Code Status on File) Date Activated Date Inactivated Comments 04/24/2024 8:32 AM 04/24/2024 1:22 PM * Full Code Date Activated Date Inactivated Comments 02/24/2022 10:22 AM 02/25/2022 9:25 AM Care Teams Product Tester Fiberglass Relationship Specialty Start Date End Date Sierra Connelly DO [address] [place] [facility] [place] [place] [id number] PCP - General Family Practice 10/18/09
--- OUTSIDE RECORDS SUMMARY | 2024-11-14 20:33 | XMS_ITS | Encounter Summary ---
Author Organization [employer] [facility] Address [address] [place] [address] Care Team Providers Care Electrophysiology Technologist Name Role Phone Sierra Connelly Jag LORENZO Primary Care Provider Encounter Details Date Type Department Care Team (Late st Contact Info) Description 11/11/2024 External Device Data [place] ABSTRACTION Provider, Abstract NO ADDRESS ON FILE Social History Tobacco Use Types Packs/Day Years [...] on file Legal Sex Male 10:16 AM SOLE SEWER HAND Gender Identity Not on file Sexual Orientation Not on file documented as of this encounter Plan of Treatment Upcoming Encounters Date Type Department Care Team (Late st Contact Info) Description 11/27/2024 3:20 PM CDT Office Visit [facility] [address] [facility] [address] [place] [address] Dominga Saenz, BUTTON CLAMPER [address] [facility] [address] [place] [address] 12/15/2024 3:00 PM CDT Appointment [facility] CT Scan [place] [address] [place] [address] Heather Guerrero PA-C [address] [address] 12/16/2024 1:20 PM CDT Office Visit [facility]3] Family Medicine [place] [address] [place] [address] Arian Weston, [facility] [address] [place] [address] 12/22/2024 3:00 PM CDT Appointment [facility] Radiation Oncology Cancer Center [address] [facility] [address] [place] [address] Heather Guerrero PA-C [address] [address] 01/13/2025 2:30 PM SOLE SEWER HAND Office Visit [facility]3] Pulmonology [address] [place] [address] [place] [address] Zahraa Kelly MD [address] [place] [address] 03/31/2025 1:30 PM SOLE SEWER HAND Ancillary Procedure [facility]3] Vascular Lab and Vein Center- [place] [address] [place] [address] Lee Mejia MD [address] [facility] [address] [place] [address] 03/31/2025 2:30 PM SOLE SEWER HAND Office Visit [facility]3] Vascular Surgery [place] [address] [facility] [address] [place] [address] Lee Mejia MD [address] [facility] [address] [place] [address] Kaylee Arias FNP NO ADDRESS ON FILE 04/07/2025 11:00 AM SOLE SEWER HAND Office Visit [facility] [address] [place] [address] Sierra Connelly, DO [address] [place] [address] 07/07/2025 11:00 AM CDT Office Visit [facility] [address] [place] [address] Sierra Connelly DO [address] [place] [address] documented as of this encounter Visit Diagnoses Not on filedocumented in this encounter Care Teams Electrophysiology Technologist Relationship Specialty Start Date End Date Sierra Connelly DO [address] [place] [address] PCP - General Family Practice 10/18/09 documented as of this encounter
--- OUTSIDE RECORDS SUMMARY | 2024-11-14 20:33 | XMS_ITS | Encounter Summary ---
Author Organization [facility] Address [address] [place] [address] Care Team Providers Care Licensed Appraiser Name Role Phone Sierra Connelly DO Primary Care Provider [phone] Encounter Details Date Type Department Care Team (Latest Contact Info) Description 08/31/1998 Outpatient Historical [facility] Gwyn Mckinnon MD [address] [place] [id number] Other acne (Primary Dx) Social History Tobacco Use Types Packs/Day Years Used Date Smoking Tobacco: Never Assessed Sex and Gender Information Value Date Recorded Sex Assigned at Not on file Legal Sex Male 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
--- OUTSIDE RECORDS SUMMARY | 2024-11-14 20:33 | XMS_ITS | Encounter Summary ---
Author Organization [facility] Address [address] [place] [address] Care Team Providers Care General Education Instructor Name Role Phone Sierra Connelly DO Primary Care Provider Encounter Details Date Type Department Care Team (Latest Contact Info) Description 02/07/2001 Outpatient Historical [facility] Gwyn Mckinnon MD [address] [place] [phone] ACUTE SINUSITIS NOS (Primary Dx); BRONCHITIS NOS; Inhibited sex excitement Social History Tobacco Use Types Packs/Day Years Used Date Smoking Tobacco: Never Assessed Sex and Gender Information Value Date Recorded Sex Assigned at Not on file 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 Gender Identity Not on file Sexual Orientation Not on file documented as of this encounter Plan of Treatment Not on file documented as of this encounter Visit Diagnoses Diagnosis Acute sinusitis, unspecified- Primary Bronchitis, not specified as acute or chronic Inhibited sex excitement Psychosexual dysfunction with inhibited sexual excitement documented in this encounter Additional Health Concerns Infection Onset Date Last Indicated Resolved Time R/O COVID-19 09/09/2019 09/09/2019 09/11/2019 3:34 AM CDT documented as of this encounter Care Teams General Education Instructor Relationship Specialty Start Date End Date Sierra Connelly DO [address] [place] [address] PCP - General Family Practice 10/18/09 documented as of this encounter
--- OUTSIDE RECORDS SUMMARY | 2024-11-14 20:33 | XMS_ITS | Encounter Summary ---
Author Organization [facility] Address [address] [place] [address] Care Team Providers Care Tube Sizer Operator Name Role Phone Sierra Connelly DO Primary Care Provider Reason for Visit * Reason Comments Med Refill Encounter Details Date Type Department Care Team (Late st Contact Info) Description 11/13/[address] [facility] [address] [facility] [address] [place] [address] Sierra Connelly DO [address] [place] [address] Social History Tobacco Use Types Packs/Day Years [...] on file Legal Sex Male 10:16 AM WIG MAKER Gender Identity Not on file Sexual Orientation Not on file documented as of this encounter Miscellaneous Notes * Telephone Encounter - Jaime Sky RN - 11/14/2024 8:17 AM CDT Refill for aldactone requested and filled documented in this encounter Plan of Treatment Upcoming Encounters Date Type Department Care Team (Late st Contact Info) Description 11/27/2024 3:20 PM CDT Office Visit [facility] [address] [facility] [address] [place] [address] Dominga Saenz, MASONRY CONTRACTOR [address] [facility] [address] [place] [address] 12/15/2024 3:00 PM CDT Appointment [facility] CT Scan [place] [address] [place] [address] Heather Guerrero PA-C [address] [place] [address] 12/16/2024 1:20 PM CDT Office Visit [facility] Family Medicine [place] [address] [place] [address] Arian Weston, ARIS [address] [place] [address] 12/22/2024 3:00 PM CDT Appointment [facility] Radiation Oncology [facility] [address] [place] [address] Heather Guerrero PA-C [address] [place] [address] 01/13/2025 2:30 PM WIG MAKER Office Visit [facility] Pulmonology [address] [place] [address] [place] [address] Zahraa Kelly MD [address] [place] [address] 03/31/2025 1:30 PM WIG MAKER Ancillary Procedure [facility] Vascular Lab and Vein Center- [place] [address] [facility] [address] [place] [address] Lee Mejia MD [address] [facility] [address] [place] [address] 03/31/2025 2:30 PM WIG MAKER Office Visit [facility] Vascular Surgery [place] [address] [facility] [address] [place] [address] Lee Mejia MD [address] [facility] [address] [place] [address] Kaylee Arias FNP NO ADDRESS ON FILE 04/07/2025 11:00 AM WIG MAKER Office Visit [facility] [address] [place] [address] Sierra Connelly, DO [address] [place] [address] 07/07/2025 11:00 AM CDT Office Visit [facility] [address] [place] [address] Sierra Connelly DO [address] [place] [address] documented as of this encounter Visit Diagnoses Not on filedocumented in this encounter Care Teams Tube Sizer Operator Relationship Specialty Start Date End Date Sierra Connelly DO [address] [place] [address] PCP - General Family Practice 10/18/09 documented as of this encounter
--- OUTSIDE RECORDS SUMMARY | 2024-11-14 20:33 | XMS_ITS | Encounter Summary ---
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 Gender Identity Not on file Sexual Orientation Not on file documented as of this encounter Plan of Treatment Not on file documented as of this encounter Visit Diagnoses Diagnosis Benign maria luisa skin trunk- Primary Benign neoplasm of skin of trunk, except scrotum documented in this encounter Additional Health Concerns Infection Onset Date Last Indicated Resolved Time R/O COVID-19 09/09/2019 09/09/2019 09/11/2019 3:34 AM CDT documented as of this encounter Care Teams Car Worker Relationship Specialty Start Date End Date Sierra Connelly DO [address] [place] [address] PCP - General Family Practice 10/18/09 documented as of this encounter
--- OUTSIDE RECORDS SUMMARY | 2024-11-14 20:33 | XMS_ITS | Encounter Summary ---
Author Organization [facility] Address [address] [place] [address] Care Team Providers Care Bulb Sorter Name Role Phone MaricelSierra zhou Jag LORENZO Primary Care Provider [phone] Encounter Details Date Type Department Care Team (Late st Contact Info) Description 02/25/[address] [facility] Cardiac Thoracic Vascular Surg [place] [address] [place] [address] Vijay Sewell MD [address] [place] [address] PVD (Peripheral Vascular Disease) Social History Tobacco Use Types Packs/Day Years Used Date Smoking Tobacco: Never Assessed Sex and Gender Information Value Date Recorded Sex Assigned at Not on file Legal Sex Male 6:17 AM CEILING INSULATION BLOWER Gender Identity Not on file Sexual Orientation Not on file documented as of this encounter Plan of Treatment Not on file documented as of this encounter Results * US DOPPLER ARTERIAL LEGS BILATERAL (03/17/2009 12:29 PM CEILING INSULATION BLOWER) Anatomical Region Laterality Modality Lower Extremity Ultrasound Impressions 03/17/2009 8:20 PM CEILING INSULATION BLOWER : Lower extremity arterial duplex imaging demonstrating an occluded right fem-pop bypass. There are bilateral superficial femoral artery occlusions. The ankle brachial index on the right is 0.59 and on the left 0.72. No exams are available for comparison. Narrative 03/17/2009 8:20 PM CEILING INSULATION BLOWER BILATERAL LOWER EXTREMITY DUPLEX EXAM WITH MELLISA DATE OF EXAM: 03/17/2009 ANKLE BRACHIAL INDICES (MELLISA) RIGHT LEFT Brachial 180 170 Ankle (PT) 107 129 Ankle (DP) 97 115 Index (PT) .59 .72 Index (DP) .54 .64 Digit 94 93 Tech: Lakisha Monet RVT INDICATION FOR STUDY: Known disease. FINDINGS: Duplex imaging of both lower extremity arterial systems is performed. Occlusion of a fem-pop bypass graft is noted. Common femoral velocities are 1.58 with monophasic waveforms. Profunda velocity is 1.76 proximal. There is increased velocity in the proximal SFA to 3.95. There is occlusion of the mid SFA and reconstitution distal. The popliteal velocity is 0.26 meters per second. Proximal anterior tibial is 0.16, distal 0.17, proximal posterior tibial 0.28, distal is 0.23. Peroneal velocity is 0.22. In the left lower extremity, mild ectasia is noted at the common femoral. Common femoral velocity is 1.63 and the profunda is 1.95. These are biphasic waveforms. There is occlusion just beyond the origin of the SFA with again reconstitution at the popliteal level with a velocity of 0.32. Anterior tibial is 0.23 proximal and 0.32 distal. Posterior tibial is 0.37 proximal and 0.37 distal. Peroneal velocity is 0.14. Diffuse bilateral atheromatous change and calcification is identified. Procedure Note Vijay Sewell MD - 05/03/2009 BILATERAL LOWER EXTREMITY DUPLEX EXAM WITH MELLISA DATE OF EXAM: 03/17/2009 ANKLE BRACHIAL INDICES (MELLISA) RIGHT LEFT Brachial 180 170 Ankle (PT) 107 129 Ankle (DP) 97 115 Index (PT) .59 .72 Index (DP) .54 .64 Digit 94 93 Tech: Lakisha Monet RVT INDICATION FOR STUDY: Known disease. FINDINGS: Duplex imaging of both lower extremity arterial systems isperformed. Occlusion of a fem-pop bypass graft is noted. Common femoralvelocities are 1.58 with monophasic waveforms. Profunda velocity is 1.76proximal. There is increased velocity in the proximal SFA to 3.95. Thereis occlusion of the mid SFA and reconstitution distal. The poplitealvelocity is 0.26 meters per second. Proximal anterior tibial is 0.16,distal 0.17, proximal posterior tibial 0.28, distal is 0.23. Peronealvelocity is 0.22. In the left lower extremity, mild ectasia is noted at the common femoral.Common femoral velocity is 1.63 and the profunda is 1.95. These arebiphasic waveforms. There is occlusion just beyond the origin of the SFAwith again reconstitution at the popliteal level with a velocity of 0.32.Anterior tibial is 0.23 proximal and 0.32 distal. Posterior tibial is0.37 proximal and 0.37 distal. Peroneal velocity is 0.14. Diffusebilateral atheromatous change and calcification is identified. IMPRESSION: Lower extremity arterial duplex imaging demonstrating anoccluded right fem-pop bypass. There are bilateral superficial femoralartery occlusions. The ankle brachial index on the right is 0.59 and onthe left 0.72. No exams are available for comparison. us Vijay Sewell MD ORDERABLES Final Result documented in this encounter Visit Diagnoses Diagnosis PVD (peripheral vascular disease) Peripheral vascular disease, unspecified documented in this encounter Additional Health Concerns Infection Onset Date Last Indicated Resolved Time R/O COVID-19 09/09/2019 09/09/2019 09/11/2019 3:34 AM CDT documented as of this encounter Care Teams Bulb Sorter Relationship Specialty Start Date End Date Sierra Connelly DO [address] [place] [address] PCP - General Family Practice 10/18/09 documented as of this encounter
--- OUTSIDE RECORDS SUMMARY | 2024-11-14 20:33 | XMS_ITS | Clinical Summary ---
Author Organization [facility] Address [address] [place] [address] Care Team Providers Care Bag Patcher Name Role Phone Maricel Sierra Jag LORENZO Primary Care Provider Allergies Active Allergy Reactions Criticality Noted Date Comments Atorvastatin Other (See Comments) 11/14/2011 Leg cramps, only caused by generic statin, can take Brand name Lipitor. Hydrocodone Itching Low 06/11/2014 Simvastatin Muscle Pain Low 03/11/2012 Varenicline Other (See Comments) 03/17/2009 Nightmares, suicidal thoughts Medications aspirin (CHRISTINE) 81 mg Oral TabIndications:PA D (peripheral artery disease) Take 1 Tab by mouth daily. 30 Tab 6 0 Active cyclobenzaprine (FLEXERIL) 10 mg tabletIndications :Chronic midline low back pain with bilateral sciatica Take 1 Tablet (10 mg) by mouth 3 times daily as needed for Spasm. 90 Tablet 2 8 Active clopidogrel (PLAVIX) 75 mg Tablet Take 1 Tablet (75 mg) by mouth daily. 90 Tablet 4 9 Active nebulizerIndicati ons:COPD with exacerbation ([facility]) Length of need 99 months Nebulizer with compressor, Kit: Disposable Nebulizer Kit, 2 per month, filters , areosol mask: No. Name of Medication Albuterol 1 Each 0 Active ipratropium-albut Janet (DUONEB) 0.5 mg-3 mg(2.5 mg base)/3 mL Solution for Nebulization Take 3 mL by inhalation every 4 hours as needed for Shortness of Breath or Wheezing. 300 mL 0 Active cloNIDine HCL (CATAPRES) 0.1 mg tabletIndications :Essential hypertension Take 1 Tablet (0.1 mg) by mouth 3 times daily. 90 Tablet 2 1 Active metoprolol succinate (TOPROL XL) 100 mg Extended Release 24 hour tabletIndications :Essential hypertension Take 1 Tablet (100 mg) by mouth daily. 90 Tablet 4 1 Active HYDROcodone-aceta minophen (NORCO) 10-325 mg TabletIndications :Chronic midline low back pain with bilateral sciatica Take 1 Tablet by mouth every 4 hours as needed for Pain, Moderate. Diagnosis: chronic low back pain. Do not fill until 04/22/2020 Max Daily Amount: 6 Tablets 150 Tablet 1 Active terazosin (HYTRIN) 10 mg capsule TAKE 1 CAPSULE AT BEDTIME 90 Capsule 2 1 Active budesonide/formot janet fumarate (SYMBICORT INHALATION)Indica tions:Chronic obstructive pulmonary disease, unspecified COPD type (CMS/HCC) Take by inhalation. Active losartan (COZAAR) 100 mg tabletIndications :Essential hypertension Take 1 Tablet (100 mg) by mouth daily. 90 Tablet 3 1 Active PARoxetine HCl (PAXIL) 40 mg tabletIndications :Generalized anxiety disorder TAKE ONE TABLET BY MOUTH EVERY DAY 90 Tablet 4 1 Active Hospital, Clinic, or Other Facility Administered Medication Ordered Dose Route Frequency Start Date End Date Status dexamethasone (DECADRON) injection 4 mgIndications:Strain of left trapezius muscle, subsequent encounter 4 mg IM ONE TIME ONLY 06/11/2017 A ctive triamcinolone acetonide (KENALOG-40) injectable suspension 40 mgIndications:Strain of left trapezius muscle, subsequent encounter 40 mg IM ONE TIME ONLY 06/11/2017 A ctive Active Problems Problem Noted Date Diagnosed Date Atherosclerosis of habematolel ar teries of extremities with intermittent claudication, bilateral legs 05/25/2019 BPH without obstruction/lower urinary tract symp toms 04/25/2017 Chronic obstructive pulmonary disease, unspecifi ed 04/06/2017 Pseudophakia, left eye 01/01/2017 Severe obesity (BMI 35.0-39.9) with comorbidity 11/15/2014 Cervical spondylosis without myelopathy 09/09/19 15 Disorder of left rotator cuff 09/08/2014 Chronic midline low back pain with sciatica 03/29 Essential hypertension 09/29/2009 Mixed hyperlipidemia 09/29/2009 Tobacco use disorder 05/10/2009 Resolved Problems Problem Noted Date Diagnosed Date Resolved Date Atherosclerosis of habematolel ar issa of extremity with intermittent claudication 03/17/2016 Bursitis of foot, R. 09/02/2012 015 Plantar fasciitis-R. 05/27/2012 015 Calcaneal spur, mild inferior-R. 05/27/2012 06/11/2014 History of peripheral vascular disease 05/27/2012 03/31/2020 Personal history of smoking 05/27/2012 06/11/2014 PAD (peripheral artery disease) 05/10/2009 06/11/2014 Immunizations Immunization Administration Dates Next Due (PREVNAR 13)(6 WKS UP) PNEUM OCOCCAL CONJUGATE (PCV13) 0.5 ML, IM 01/12/2017 (TDVAX)(7 YRS UP) TETANUS AN D DIPHTHERIA TOXOIDS, ADSORBED (2 LF OF TETANUS TOXOID AND 2 LF OF DIPHTHERIA TOXOID), 0.5ML (PF), IM 10/20/2004 INFLUENZA VACCINE QUADRIVALENT 6 MOS UP PF IM ,01/17/2016 Influenza Seasonal Unspecified Formulation IM ,12/27/2012 Influenza Vaccine Split 3+ Yrs IM 01/29/2013 Pneumococcal conjugate, unspecified formulation 02/26/2007 Family History Medical History Relation Name Comments Asthma Daughter Hypertension Father Heart Disease Maternal Grandfather Hypertension Maternal Grandfather Stroke Maternal Grandfather Heart Disease Maternal Grandmother Hypertension Maternal Grandmother Stroke Maternal Grandmother Cataract Mother Depression Mother Heart Disease Mother Hypertension Mother Stroke Mother Depression Sister Diabetes Sister Corneal Dystrophies Neg Hx Detachment/Tears Neg Hx Fuchs' dystrophy Neg Hx Glaucoma Neg Hx [place] Neg Hx Macular Degen Neg Hx Strabismus Neg Hx Relation Name Status Comments Daughter Father Maternal Grandfather Maternal Grandmother Mother Sister Social History Tobacco Use Types Packs/Day Years Used Date Smoking Tobacco: Every Day Cigarettes 1 44 Smokeless Tobacco: Never Tobacco Cessation:Ready to Q uit: No; Counseling Given: Yes Alcohol Use Standard Drinks/Week Comments No 0 (1 standard drink = 0.6 oz pure alcohol) Patient has history of alcoholism, has not drank in 20+ years Sex and Gender Information Value Date Recorded Sex Assigned at Not on file 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 Gender Identity Not on file Sexual Orientation Not on file Occupation Industry Job Start Date Job End Date Not on file Not on file Not on file Not on file Last Filed Vital Signs Vital Sign Reading Time Taken Comments Blood Pressure 176/92 08/03/2020 1:24 PM CDT Pulse 103 08/03/2020 1:23 PM CDT Temperature 36.4 C (97.6 F) 08/03/2020 1:23 PM CDT Respiratory Rate 18 08/03/2020 1:23 PM CDT Oxygen Saturation 93% 08/03/2020 1:23 PM CDT Inhaled Oxygen Concentration - - Weight 107.5 kg (237 lb) 08/03/2020 1:23 PM CDT Height 177.8 cm (5' 10 ) 08/03/2020 1:23 PM CDT Body Mass Index 34.01 08/03/2020 1:23 PM CDT Plan of Treatment Health Maintenance Due Date Last Done Comments Pre-Diabetes and Diabetes Screening 1955 FIT-DNA Q 3 years 11/19/2000 FIT/FOBT Q 1 year 11/19/2000 Flex Sig/CT Colonography Q 5 years 11/19/2000 DTAP/TDAP/TD VACCINES (1 - Tdap) 10/21/2004 10/21/19 05 ZOSTER VACCINE (1 of 2) 11/19/2005 RSV VACCINE (60+ or ) (1 - Risk 60-74 years 1-dose series) 2015 PNEUMOCOCCAL VACCINE 50+ YEA RS (2 of 2 - PPSV23, PCV20, or PCV21) 03/09/2017 01/12/2017, 02/26/2007 COLORECTAL SCREENING 01/15/2020 07/15/2019 Colorectal Cancer Screening 01/15/2020 [place] Preventative Visit/Annual Wellness Visit 02/27/2024 03/22/2020, 12/26/2019 INFLUENZA VACCINE (#1) 2024 0, 12/11/2017, 01/12/2017, Additional history exists Medical Devices Implanted Type Area Personnel Research Scientist Device Identifier Shelf Expiration Date Model / Serial / Lot Lens Io Tecnis 1pc 23.0 [id number] - [id number] Implanted:Qty: 1 on 11/29/2016 by Eddie Engle MD at [facility] Left: Eye [employer] 09/23/2020 [id number] / [id number] / [id number] - [id number] Implanted:Qty: 1 on 09/07/2009 at [facility] Other Right: Vein [employer] 07/02/2014 V010 / [id number] / [id number] Description:cryovein sapheno us vein human allograft [id number] - [id number] Implanted:Qty: 1 on 09/28/2009 at [facility] Other Left: Leg [employer] 05/03/2014 V010 / [id number] / [id number] Description:4mm - 6 mm x 68 cm cryolife graft Insurance ([address] [place] [address] [employer] GOLD PLUS [id number] HMO Advance Directives For more information, please contact: [phone] * Full Code (Latest Code Status on File) Date Activated Date Inactivated Comments 07/15/2019 2:02 PM 07/15/2019 7:01 PM * Full Code Date Activated Date Inactivated Comments 11/29/2016 12:08 PM 11/29/2016 3:36 PM * Full Code Date Activated Date Inactivated Comments 09/28/2009 6:35 AM 09/29/2009 5:07 PM * Full Code Date Activated Date Inactivated Comments 09/28/2009 5:31 AM 09/28/2009 6:35 AM * Full Code Date Activated Date Inactivated Comments 09/07/2009 6:46 AM 09/09/2009 7:02 PM Care Teams Bag Patcher Relationship Specialty Start Date End Date Maricel, Sierra L, DO [address] [place] [phone] PCP - General Family Practice 10/18/09
--- OUTSIDE RECORDS SUMMARY | 2024-11-14 20:33 | XMS_ITS | Encounter Summary ---
Author Organization [facility] Address [address] [place] [address] Care Team Providers Care Ribbon Weaver Name Role Phone Sierra Connelly DO Primary Care Provider Encounter Details Date Type Department Care Team (Latest Contact Info) Description 02/04/2002 Outpatient Historical 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 Gender Identity Not on file Sexual Orientation Not on file documented as of this encounter Plan of Treatment Not on file documented as of this encounter Visit Diagnoses Diagnosis Inhibited sex excitement- Primary Psychosexual dysfunction with inhibited sexual excitement Personal history of other diseases of circulatory system Obesity, unspecified documented in this encounter Additional Health Concerns Infection Onset Date Last Indicated Resolved Time R/O COVID-19 09/09/2019 09/09/2019 09/11/2019 3:34 AM CDT documented as of this encounter Care Teams Ribbon Weaver Relationship Specialty Start Date End Date Sierra Connelly DO [address] [place] [address] PCP - General Family Practice 10/18/09 documented as of this encounter
--- OUTSIDE RECORDS SUMMARY | 2024-11-14 20:33 | XMS_ITS | Encounter Summary ---
Author Organization [facility] Address [address] [place] [address] Care Team Providers Care Wrist Closer Name Role Phone Sierra Connelly DO Primary Care Provider [phone]- [phone] Encounter Details Date Type Department Care Team (Latest Contact Info) Description 01/23/2000 Outpatient Historical [facility] Dawson Anne MD [address] [facility] [address] [place] [phone] Sebaceous cyst (Primary Dx); Swelling, mass, or lump in head and neck Social History Tobacco Use Types Packs/Day Years Used Date Smoking Tobacco: Never Assessed Sex and Gender Information Value Date Recorded Sex Assigned at Not on file 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 Gender Identity Not on file Sexual Orientation Not on file documented as of this encounter Plan of Treatment Not on file documented as of this encounter Visit Diagnoses Diagnosis Sebaceous cyst- Primary Swelling, mass, or lump in head and neck documented in this encounter Additional Health Concerns Infection Onset Date Last Indicated Resolved Time R/O COVID-19 09/09/2019 09/09/2019 09/11/2019 3:34 AM CDT documented as of this encounter Care Teams Wrist Closer Relationship Specialty Start Date End Date Sierra Connelly DO [address] [place] [address] PCP - General Family Practice 10/18/09 documented as of this encounter
--- OUTSIDE RECORDS SUMMARY | 2024-11-14 20:33 | XMS_ITS | Encounter Summary ---
Author Organization [facility] Address [address] [place] [address] Care Team Providers Care Solid Waste Truck Driver Name Role Phone Sierra Connelly DO Primary Care Provider [phone]- [phone] Encounter Details Date Type Department Care Team (Latest Contact Info) Description 03/01/1998 Outpatient Historical [facility] Gwyn Mckinnon MD [address] [place] [phone] Bronchitis, not specified as acute or chronic (Primary Dx) Social History Tobacco Use Types Packs/Day Years Used Date Smoking Tobacco: Never Assessed Sex and Gender Information Value Date Recorded Sex Assigned at Not on file 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 Gender Identity Not on file Sexual Orientation Not on file documented as of this encounter Plan of Treatment Not on file documented as of this encounter Visit Diagnoses Diagnosis Bronchitis, not specified as acute or chronic- Primary documented in this encounter Additional Health Concerns Infection Onset Date Last Indicated Resolved Time R/O COVID-19 09/09/2019 09/09/2019 09/11/2019 3:34 AM CDT documented as of this encounter Care Teams Solid Waste Truck Driver Relationship Specialty Start Date End Date Sierra Connelly DO [address] [place] [phone] PCP - General Family Practice 10/18/09 documented as of this encounter
--- OUTSIDE RECORDS SUMMARY | 2024-11-14 20:33 | XMS_ITS | Encounter Summary ---
Author Organization [facility] Address [address] [place] [address] Care Team Providers Care Locker Plant Attendant Name Role Phone Sierra Connelly DO Primary Care Provider [phone]- [phone] Encounter Details Date Type Department Care Team (Late st Contact Info) Description 05/26/2009 Ancillary Orders [facility] Cardiac Thoracic Vascular Surg [place] [address] [place] [address] Vijay Sewell MD [address] [place] [address] Social History Tobacco Use Types Packs/Day Years Used Date Smoking Tobacco: Every Day Cigarettes 1 44 Alcohol Use Standard Drinks/Week Comments No 0 (1 standard drink = 0.6 oz pur e alcohol) 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 Sex and Gender Information Value Date Recorded Sex Assigned at Not on file 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
--- OUTSIDE RECORDS SUMMARY | 2024-11-14 20:33 | XMS_ITS | Encounter Summary ---
Author Organization [facility] Address [address] [place] [address] Care Team Providers Care Net Software Architect Name Role Phone MaricelRebeccaSierra Jag LORENZO Primary Care Provider +1- [phone] Reason for Referral * Outpatient Services (Routine) - Closed Specialty Diagnoses / Procedures Referred By Mayra lopez Referred To Contact Diagnoses PAD (peripheral artery disease) Procedures US DOPPLER ARTERIAL LEG LEFT Celestina Stringer CNS Referral ID Status Reason Start Date Expiration Date Visits Re quested Visits Authorized [id number] Closed 11/15/2009 05/14/2010 1 1 Encounter Details Date Type Department Care Team (Late st Contact Info) Description 11/15/2009 Ancillary Orders [facility] Cardiac Thoracic Vascular Surg [place] [address] [place] [phone] Celestina Stringer CNS NO ADDRESS ON FILE PAD (Peripheral Artery [...] on file 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 Gender Identity Not on file Sexual Orientation Not on file documented as of this encounter Plan of Treatment Not on file documented as of this encounter Results * US DOPPLER ARTERIAL LEG LEFT (11/15/2009 12:39 PM CDT) Anatomical Region Laterality Modality Lower Extremity Ultrasound 11/15/2009 11:2 6 AM CDT Narrative 11/25/2009 1:53 PM CDT [facility] [address] [place] [address] Noninvasive Vascular Lab Arterial Exam Complete Lower Extremity Duplex Patient: James Alvarado Study ID: US DOPPLER ARTER Gender: Damion : 1955 Age: 54 Room: Height: Weight: BSA: Pt status: Outpatient Study Date: 11/15/2009 Study Time: 11:26 AM BSA: Ordering: Celestina Stringer Interpreting:Vijay Sewell MD FACS, RPVI Cardiac Exercise Specialist: Herminia Monet RVT Indications: 443.9 Peripheral vascular disease unspecified. History: Risk factors: Previous surgery: Bilateral fem/pop bypasses. Summary Impression: 1. No evidence of significant arterial insufficiency. No change from the study of August 2009. 2. The fem/pop bypass grafts appear to be widely patent bilaterally. Labs, prior tests, procedures, and surgery: Right graft. Left graft. Left graft. Study data: Bilateral lower extremity arterial duplex. Duplex scan and ankle-brachial indices. Location: Vascular laboratory. Patient status: Outpatient. Study status: Routine. Procedure: A vascular evaluation was performed. Image quality was good. Ankle brachial indices Baseline Rt PT: 168mm Hg Rt DP: 164mm Hg 164mm Hg Rt PT: 1.02 Lt PT: 166mm Hg Lt DP: 152mm Hg 156mm Hg Lt PT: 101 Arterial flow: - Right common femoral - 2.17m/sec Triphasic - Triphasic - Graft from right common femoral to right popliteal - inflow - 2.46m/sec Triphasic - Graft from right common femoral to right popliteal - proximal anastomosis - 1.53m/sec Triphasic - Graft from right common femoral to right popliteal - mid graft - 0.73m/sec Triphasic - Graft from right common femoral to right popliteal - distal graft - 0.64m/sec Triphasic - Graft from right common femoral to right popliteal - distal anastomosis - 0.44m/sec Triphasic - Right popliteal - 0.98m/sec Triphasic - Right posterior tibial - proximal - 0.56m/sec Triphasic - Right posterior tibial - distal - 0.74m/sec Triphasic - Right peroneal - mid - 0.54m/sec Triphasic - Left common femoral - 1.79m/sec Triphasic - Graft from left common femoral to left popliteal - inflow - 2.04m/sec Triphasic - Graft from right common femoral to left popliteal - proximal anastomosis - 1.88m/sec Triphasic - Graft from left common femoral to left popliteal - mid graft - 0.7m/sec Triphasic - Graft from left common femoral to left popliteal - distal graft - 0.52m/sec Triphasic - Graft from left common femoral to left popliteal - distal anastomosis - 0.89m/sec Triphasic - Left popliteal - 0.46m/sec Triphasic - Left posterior tibial - distal - 0.59m/sec Triphasic - Left peroneal - distal - 0.43m/sec Triphasic [facility] is accredited with the Intersocietal Commission for the Accreditation of Vascular Laboratories (ICAVL) Prepared and Electronically Authenticated Vijay Sewell MD FACS, RPVI Confirmed 11/25/2009 13:53 Procedure Note Vijay Sewell MD - 11/25/2009 [facility] [address] [place] [address] Noninvasive Vascular Lab Arterial Exam Complete Lower Extremity Duplex Patient: James Alvarado Study ID: US DOPPLER ARTER Gender: M : 1955 Age: 54 Room: Height: Weight: BSA: Pt status: Outpatient Study Date: 11/15/2009 Study Time: 11:26 AM BSA: Ordering: Celestina Stringer Interpreting:Vijay Sewell MD [facility] Cardiac Exercise Specialist: Herminia Monet RVT Indications: 443.9 Peripheral vascular disease unspecified. History: Risk factors: Previous surgery: Bilateral fem/pop bypasses. Summary Impression: 1. No evidence of significant arterial insufficiency. No change from the study of August 2009. 2. The fem/pop bypass grafts appear to be widely patent bilaterally. Labs, prior tests, procedures, and surgery: Right graft. Left graft. Left graft. Study data: Bilateral lower extremity arterial duplex. Duplex scan and ankle-brachial indices. Location: Vascular laboratory. Patient status: Outpatient. Study status: Routine. Procedure: A vascular evaluation was performed. Image quality was good. Ankle brachial indices Baseline Rt PT: 168mm Hg Rt DP: 164mm Hg 164mm HgRt PT: 1.02 Lt PT: 166mm Hg Lt DP: 152mm Hg 156mm Hg Lt PT: 101 Arterial flow: - Right common femoral - 2.17m/sec Triphasic - Triphasic - Graft from right common femoral to right popliteal - inflow -2.46m/sec Triphasic - Graft from right common femoral to right popliteal - proximalanastomosis - 1.53m/sec Triphasic - Graft from right common femoral to right popliteal - mid graft - 0.73m/sec Triphasic - Graft from right common femoral to right popliteal - distal graft - 0.64m/sec Triphasic - Graft from right common femoral to right popliteal - distal anastomosis- 0.44m/sec Triphasic - Right popliteal - 0.98m/sec Triphasic - Right posterior tibial - proximal - 0.56m/sec Triphasic - Right posterior tibial - distal - 0.74m/sec Triphasic - Right peroneal - mid - 0.54m/sec Triphasic - Left common femoral - 1.79m/sec Triphasic - Graft from left common femoral to left popliteal - inflow - 2.04m/sec Triphasic - Graft from right common femoral to left popliteal - proximalanastomosis - 1.88m/sec Triphasic - Graft from left common femoral to left popliteal - mid graft -0.7m/sec Triphasic - Graft from left common femoral to left popliteal - distal graft - 0.52m/sec Triphasic - Graft from left common femoral to left popliteal - distal anastomosis- 0.89m/sec Triphasic - Left popliteal - 0.46m/sec Triphasic - Left posterior tibial - distal - 0.59m/sec Triphasic - Left peroneal - distal - 0.43m/sec Triphasic [facility] is accredited with theIntersocietal Commission for the Accreditation of Vascular Laboratories (ICAVL) Prepared and Electronically Authenticated Vijay Sewell MD FACS, RPVI Confirmed 11/25/2009 13:53 us Celestinasa Brock Stringer [facility] US ORDERABLES Final Result documented in this encounter Visit Diagnoses Diagnosis PAD (peripheral artery disease) Unspecified disorders of arteries and arterioles documented in this encounter Additional Health Concerns Infection Onset Date Last Indicated Resolved Time R/O COVID-19 09/09/2019 09/09/2019 09/11/2019 3:34 AM CDT documented as of this encounter Care Teams Net Software Architect Relationship Specialty Start Date End Date Sierra Connelly DO [address] [place] [phone] PCP - General Family Practice 10/18/09 documented as of this encounter
--- OUTSIDE RECORDS SUMMARY | 2024-11-14 20:33 | XMS_ITS | Encounter Summary ---
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 Gender Identity Not on file Sexual Orientation Not on file documented as of this encounter Plan of Treatment Not on file documented as of this encounter Visit Diagnoses Diagnosis Other malaise and fatigue- Primary documented in this encounter Additional Health Concerns Infection Onset Date Last Indicated Resolved Time R/O COVID-19 09/09/2019 09/09/2019 09/11/2019 3:34 AM CDT documented as of this encounter Care Teams Front Desk Auxiliary Relationship Specialty Start Date End Date Sierra Connelly DO [address] [place] [address] PCP - General Family Practice 10/18/09 documented as of this encounter
--- OUTSIDE RECORDS SUMMARY | 2024-11-14 20:33 | XMS_ITS | Encounter Summary ---
Author Organization [facility] Address [address] [place] [address] Care Team Providers Care Animal Handler Name Role Phone Sierra Connelly Primary Care Provider [phone] Encounter Details Date Type Department Care Team (Latest Contact Info) Description 06/16/2009 Ancillary Orders [facility] Interventional Radiology [address] [place] [address] Vijay Sewell MD [address] [address] PVD (Peripheral Vascular Disease) Social History Tobacco Use Types Packs/Day Years Used Date Smoking Tobacco: Every Day Cigarettes 1 44 Alcohol Use Standard Drinks/Week Comments No 0 (1 standard drink = 0.6 oz pur e alcohol) 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 Procedure Note Og Sun MD - 08/28/2012 Final see Provider's notes. us Vijay Sewell MD FLUOROSCOPY ORDERABLES Final Res ult documented in this encounter Visit Diagnoses Diagnosis PVD (peripheral vascular disease) Peripheral vascular disease, unspecified documented in this encounter Additional Health Concerns Infection Onset Date Last Indicated Resolved Time R/O COVID-19 09/09/2019 09/09/2019 09/11/2019 3:34 AM CDT documented as of this encounter Care Teams Animal Handler Relationship Specialty Start Date End Date Sierra Connelly DO [address] [place] [address] PCP - General Family Practice 10/18/09 documented as of this encounter
--- OUTSIDE RECORDS SUMMARY | 2024-11-14 20:33 | XMS_ITS | Encounter Summary ---
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 Gender Identity Not on file Sexual Orientation Not on file documented as of this encounter Plan of Treatment Not on file documented as of this encounter Visit Diagnoses Diagnosis Lateral epicondylitis- Primary Lateral epicondylitis of elbow documented in this encounter Additional Health Concerns Infection Onset Date Last Indicated Resolved Time R/O COVID-19 09/09/2019 09/09/2019 09/11/2019 3:34 AM CDT documented as of this encounter Care Teams Wire Spooler Relationship Specialty Start Date End Date Sierra Connelly DO [address] [place] [id number] PCP - General Family Practice 10/18/09 documented as of this encounter
[2024-11-14 20:34] VITALS: BP 148/99; PULSE 67; RESP 28; TEMP 36.6; O2SAT 99
--- NOTE | 2024-11-14 20:50 | XRR_ITS ---
PROCEDURE INFORMATION: Exam: XR Chest Exam date and time: 11/14/2024 9:41 PM Age: 68 years old Clinical indication: Pain; Chest pressure; Additional info: Cp TECHNIQUE: Imaging protocol: Radiologic exam of the chest. Views: 1 view. COMPARISON: CT chest con [id number] 05/28/2020 3:22 PM FINDINGS: Lungs: Clear lung parenchyma with the exception of mild platelike left lower lung zone atelectasis. No consolidation. Pleural spaces: Unremarkable. No pleural effusion. No pneumothorax. Heart/Mediastinum: Unremarkable. No cardiomegaly. Bones/joints: Mild degenerative changes of the thoracic spine. XR/XR chest 1V portable [id number] IMPRESSION: No acute intrathoracic abnormality.
[2024-11-14 20:57] VITALS: BP 135/77; PULSE 75; RESP 26; O2SAT 98
[2024-11-14 21:12] LABS: Hematocrit 35.1 % (37-53); Hemoglobin 12.30 g/dL (11.27-16.99); Mean Corpuscular HGB Conc 35.0 g/dL (30-55); Mean Corpuscular Hemoglobin 32.0 pg (27-33); Mean Corpuscular Volume 91.4 fl (82-101); Nucleated Red Blood Cells % 0 %; Platelet Count 255 10^3/cmm (157-399); Red Blood Count 3.84 10^6/uL (3.85-5.65); White Blood Count 9.04 10^3/uL (3.29-11.43)
[2024-11-14 21:30] LABS: Troponin(5th) Baseline 17 ng/L (0-15)
[2024-11-14 21:32] LABS: Alanine Aminotransferase 6 U/L (0-41); Albumin Level 3.7 g/dL (3.5-5.2); Alkaline Phosphatase 77 U/L (40-130); Anion Gap 18.4 (5-19); Aspartate Amino Transferase 9 U/L (0-40); Blood Urea Nitrogen 11 mg/dL (8-23); Calcium 9.4 mg/dL (8.5-10.5); Carbon Dioxide 20 mmol/L (22-29); Chloride 99 mmol/L (98-107); Creatinine Clr Calc Pharmacy 84.6302; Globulin 3.2 g/dL (1.3-4.6); Glucose 96 mg/dL (65-115); Osmolality Calculated 277 mOsm/kg (285-295); Potassium 3.4 mmol/L (3.5-5.1); Sodium 134 mmol/L (136-145); Total Protein 6.9 g/dL (6.6-8.7)
[2024-11-14 21:54] LABS: NT Pro B Type Natriuretic Pept 1484 pg/mL (0-125)
--- NOTE | 2024-11-14 21:55 | W.ED.CHESTPA ---
HPI - Chest Pain General: Chief Complaint: Chest Pain Stated Complaint: cp TIGHT sob Time Seen by Provider: 11/14/24 21:55 History of Present Illness: 68 yo M with Hx of COPD, lung cancer treated with radiation this spring (reports successful ), and CHF ( a touch of it ) presents with episodic SOB starting this afternoon. Episodes begin with a yawn, then sudden hard breathing, pallor, sweating and feeling cold, and lightheadedness; each lasts seconds to 1?3 minutes, then resolves. Denies cough, fever, myalgias/arthralgias, melena, or overt bleeding. Describes a left-sided chest cramp, but primary concern is SOB. Smokes very little now after lifelong heavy smoking. Uses inhalers regularly. Reports running out of OxyContin ER on and also out of oxycodone IR; typically has withdrawal if delayed refills but states this feels different. Oxygen noted at 97% on RA. Pt was anxious and scared about heart disease; reassured by clinician. Related Data Home Medications ?Medication ?Instructions ?Recorded ?Confirmed clopidogrel 75 mg tablet (Plavix) 75 mg PO DAILY 11/11/19 02/13/24 paroxetine HCl 40 mg tablet (Paxil) 40 mg PO DAILY 11/11/19 02/13/24 terazosin 10 mg capsule 10 mg PO DAILY 11/11/19 02/13/24 losartan 100 mg tablet 100 mg PO DAILY 08/18/21 02/13/24 amlodipine 5 mg tablet mg PO ONCE 02/13/24 02/13/24 dexamethasone 6 mg tablet mg PO DAILY 02/13/24 02/13/24 levofloxacin 500 mg tablet mg PO DAILY 02/13/24 02/13/24 trazodone 100 mg tablet 100 mg PO DAILY 02/13/24 02/13/24 Previous Rx's ?Medication ?Instructions ?Recorded hydrocodone 5 mg-acetaminophen 325 1 tab PO Q4H PRN pain #10 tabs 06/15/19 mg tablet albuterol sulfate 90 mcg/actuation 1 inh inhalation QID PRN shortness 11/11/19 aerosol inhaler (Ventolin HFA) of breath or wheezing #8.5 grams nicotine 14 mg/24 hr daily 1 patch transdermal DAILY #28 ea 12/15/19 transdermal patch Spiriva Respimat 2.5 mcg/actuation 2 puff inhalation DAILY #4 grams 05/20/20 solution for inhalation (tiotropium bromide) Symbicort 80 mcg-4.5 mcg/actuation 2 puff inhalation BID #10.2 grams 06/15/21 HFA aerosol inhaler (budesonide-formoterol) Allergies Allergy/AdvReac Type Severity Reaction Status Date / Time varenicline (From Chantix) Allergy Unknown Verified 11/14/24 20:37 PFSH ED PFSH: Medical History (Updated 11/14/24 @ 22:30 by Gwyn Abbott MD) H/O: stroke Surgical History History of colonoscopy with polypectomy Social History Smoking and tobacco/nicotine status: current every day tobacco/nicotine user cigarettes Years cigarettes smoked: 53 [ Other cigarette details: 1PPD X 53 YEARS] Quit status (tobacco/nicotine): considering quitting Second hand smoke exposure: No Alcohol intake: former Year of sobriety/quit date alcohol: 2000 Substance/Drug Use: never Lives independently: Yes Household members: spouse Housing: House Marital status: service: No Current occupational status: disabled Pets and animals: Yes Do you think of yourself as: Straight/Heterosexual Current gender identity: Male Physical Exam Const: COMMON NORMALS: no acute distress, patient oriented x3 and alert HENMT: COMMON NORMALS: normocephalic and atraumatic HEAD & SCALP: normocephalic and atraumatic Eye: COMMON NORMALS: Equal, round and reactive pupils present, EOMs intact bilaterally and no scleral icterus PUPIL: Yes Equal, round and reactive pupils present Resp: COMMON NORMALS: normal respiratory effort and No retractions OTHER: No wheezes Cardio: COMMON NORMALS: regular rate, regular rhythm and No murmurs present (Cardio) RATE: regular rate RHYTHM: regular rhythm GI: COMMON NORMALS: Normal to inspection, nondistended, normoactive bowel sounds present, Soft to palpation and non-tender PALPATION: Yes Soft to palpation Neuro: COMMON NORMALS: patient oriented x3 SENSORIUM/ORIENTATION: Yes alert Skin: COMMON NORMALS: no rashes or lesions noted NARRATIVE SKIN EXAM: Subjectively pale per GENERAL SKIN EXAM: no rashes or lesions noted Course Vital Signs: Vital signs: Vital Signs Temperature 97.8 F 11/14/24 20:34 Pulse Rate 71 11/14/24 22:49 Respiratory Rate 18 11/14/24 22:49 Blood Pressure 162/100 11/14/24 22:49 Pulse Oximetry 95 11/14/24 22:49 Oxygen Delivery Me thod Room Air 11/14/24 20:34 MDM - Chest Pain Medical Decision Making 68 yo M with COPD, prior lung CA s/p radiation, and CHF presents with episodic SOB since today, associated with pallor, sweating/feeling cold, lightheadedness, and brief left-sided chest cramp. Ran out of OxyContin and oxycodone; similar to prior withdrawal per pt but feels different. No fever, cough, or GI blood loss. SpO2 97% RA. PE notable for pallor. No other documented abnormal exam findings. BNP 1600 per clinician. Otherwise clinician states heart, lungs, and blood look good. [Pertinent Imaging Results Not Available] Opioid withdrawal considered given diaphoresis, pallor, anxiety-like episodes after abrupt cessation; clinician hesitant but considers it likely contributor. CHF exacerbation felt less likely given episodic nature, normal oxygenation, no orthopnea or edema. ACS felt unlikely per normal testing and clinician reassurance. COPD exacerbation less clear without cough/fever and normal testing. Plan is to administer long-acting morphine (12-hour) 1 dose(s) tonight as a bridge until Rx can be filled tomorrow. Discharge anticipated after medication administration. No additional tests or consults documented. EKG: Time?2030?sinus rhythm, rate of 68, no ST segment elevation or depression, no T wave versions, QTc = 441 Lab Data 11/14/24 21:05 11/14/24 21:05 Radiology Impressions Chest X-Ray 11/14/24 20:50 IMPRESSION: No acute intrathoracic abnormality. Laboratory Results WBC 9.04 10^3/uL (3.29-11.43) 11/14/24 21:05 RBC 3.84 10^6/uL (3.85-5.65) L 11/14/24 21:05 Hgb 12.30 g/dL (11.27-16.99) 11/14/24 21:05 Hct 35.1 % (37-53) L 11/14/24 21:05 MCV 91.4 fl (82-101) 11/14/24 21:05 MCH 32.0 pg (27-33) 11/14/24 21:05 MCHC 35.0 g/dL (30-55) 11/14/24 21:05 RDW 13.9 % (12.1-15.1) 11/14/24 21:05 Plt Count 255 10^3/cmm (157-399) 11/14/24 21:05 MPV 9.2 fL (7.4-10.4) 11/14/24 21:05 Neut % (Auto) 76.2 % 11/14/24 21:05 Lymph % (Auto) 16.9 % 11/14/24 21:05 Reagan % (Auto) 5.8 % 11/14/24 21:05 Eos % (Auto) 0.4 % 11/14/24 21:05 Baso % (Auto) 0.4 % 11/14/24:05 Neut # (Auto) 6.88 10^3/uL (1.8-7.7) 11/14/24 21:05 Lymph # (Auto) 1.5 10^3/uL (0.8-4.8) 11/14/24 21:05 Reagan # (Auto) 0.5 10^3/uL (0.2-0.9) 11/14/24 21:05 Eos # (Auto) 0.0 10^3/uL (0.0-0.8) 11/14/24 21:05 Baso # (Auto) 0.0 10^3/uL (0.0-0.1) 11/14/24 21:05 Nucleated RBC % (auto) 0 % 11/14/24 21:05 Nucleated RBCs # 0.0 /100WBC 11/14/24 21:05 Sodium 134 mmol/L (136-145) L 11/14/24 21:05 Potassium 3.4 mmol/L (3.5-5.1) L 11/14/24 21:05 Chloride 99 mmol/L (98-107) 11/14/24 21:05 Carbon Dioxide 20 mmol/L (22-29) L 11/14/24 21:05 Anion Gap 18.4 (5-19) 11/14/24 21:05 BUN 11 mg/dL (8-23) 11/14/24 21:05 Creatinine 0.9 mg/dL (0.7-1.2) 11/14/24 21:05 GFR Calculation 83.9 mL/min (90-130) L 11/14/24 21:05 Glucose 96 mg/dL (65-115) 11/14/24 21:05 Calculated Osmolality 277 mOsm/kg (285-295) L 11/14/24 21:05 Calcium 9.4 mg/dL (8.5-10.5) 11/14/24 21:05 Total Bilirubin 0.4 mg/dL (0.15-1.2) 11/14/24 21:05 AST 9 U/L (0-40) 11/14/24 21:05 ALT 6 U/L (0-41) 11/14/24 21:05 Alkaline Phosphatase 77 U/L (40-130) 11/14/24 21:05 Troponin T Baseline 17 ng/L (0-15) H 11/14/24 21:05 NT-Pro-B Natriuret Pep 1484 pg/mL (0-125) H 11/14/24 21:05 Total Protein 6.9 g/dL (6.6-8.7) 11/14/24 21:05 Albumin 3.7 g/dL (3.5-5.2) 11/14/24 21:05 Globulin 3.2 g/dL (1.3-4.6) 11/14/24 21:05 All radiology interpretation(s) finalized by discharge Discharge Plan Discharge Patient Disposition: Home Clinical Impression: Chest pain, Increasing shortness of breath Condition: Stable Prescriptions: No Action nicotine 14 mg/24 hr patch 24 hour 1 patch TRANSDERMA DAILY Qty: 28 3RF Spiriva Respimat 2.5 mcg/actuation mist 2 puff inhalation DAILY Qty: 4 3RF clopidogrel [Plavix] 75 mg tablet 75 mg PO DAILY terazosin 10 mg capsule 10 mg PO DAILY paroxetine HCl [Paxil] 40 mg tablet 40 mg PO DAILY albuterol sulfate [Ventolin HFA] 90 mcg/actuation HFA aerosol inhaler 1 inh INHALATION QID PRN (Reason: shortness of breath or wheezing) Qty: 8.5 3RF losartan 100 mg tablet 100 mg PO DAILY amlodipine 5 mg tablet PO ONCE trazodone 100 mg tablet 100 mg PO DAILY dexamethasone 6 mg tablet PO DAILY levofloxacin 500 mg tablet PO DAILY budesonide-formoterol [Symbicort] 80-4.5 mcg/actuation HFA aerosol inhaler 2 puff inhalation BID Qty: 10.2 0RF Rx Instructions: NEEDS APPT PRIOR TO FURTHER REFILLS hydrocodone-acetaminophen 5-325 mg tablet 1 tab PO Q4H PRN (Reason: pain) Qty: 10 0RF Discharge Orders: Discharge ED (Routine); Ordered 11/14/24 Ordered By: Gwyn Abbott Referrals: Sierra Connelly DO [Primary Care Provider, Family Practice] Discharge Diet: Usual diet Discharge Activity: Increase activity as tolerated Patient Instructions: Panic Attack (ED), Patient Portal & Tello Instructions Activity Restrictions/Additional Instructions: As we discussed, your EKG, chest x-ray, blood work are reassuring with no evidence of heart attack or pneumonia or emergency requiring hospitalization. I think it is reasonable to assume you are having some anxiety causing the sensation of shortness of breath and chest pain in relation to running out of your pain medications. Hopefully the medication given here tonight can adequately bridge you until you are able to fill your prescription tomorrow. Print Language: Macedonian Coding Level of Care Code ED Scheme Technician for Terrence Garcia
[2024-11-14] MEDS: morphine ER (12 HR) 30 mg tablet PO (22:48)
[2024-11-14 22:49] VITALS: BP 162/100; PULSE 71; RESP 18; O2SAT 95
== END 2024-11-14 22:52 | disposition home or self-care (01) ==
PROVIDERS: Emergency Provider Student in an Organized Health Care Education/Training Program; PCP Family Medicine
DX: R07.9 Chest pain, unspecified (principal); R06.02 Shortness of breath; Z79.02 Long term (current) use of antithrombotics/antiplatelets; F17.210 Nicotine dependence, cigarettes, uncomplicated
CPT/HCPCS: 36415; 71045; 80053; 83880; 84484; 85025; 93005; 99285; J9999